=== PATIENT | female | born 1960 | race African-American/Black ===

== ENCOUNTER 2021-03-02 10:14 | Outpatient (REF) | payer MEDICARE, MEDICAID, SELFPAY ==
[2021-03-02 11:03] LABS: MANUAL DIFF FLAG NO
[2021-03-02 11:35] LABS: Alanine Aminotransferase 17 U/L (0-31); Albumin Level 4.2 g/dL (3.5-5.0); Alkaline Phosphatase 69 U/L (39-117); Anion Gap 12 (12-20); Aspartate Amino Transferase 20 U/L (5-31); Bilirubin Total 0.4 mg/dL (0.0-1.0); Blood Urea Nitrogen 8 mg/dL (9-16); Calcium 9.5 mg/dL (8.4-10.2); Carbon Dioxide 28 mmol/L (22-29); Chloride 109 mmol/L (96-108); Cholesterol 194 mg/dL; Estimated Glomerular Filt Rate > 60; Glucose Random 99 mg/dL (60-115); HDL Cholesterol 59 mg/dL; LDL Cholesterol Calculated 120 mg/dl; Potassium 4.6 mmol/L (3.3-5.1); Sodium 144 mmol/L (135-145); Total Protein 6.9 g/dL (6.5-8.0); Triglycerides 76 mg/dL
[2021-03-02 11:40] LABS: Basophils Percent Auto 0.4 % (0-2); Eosinophils Absolute Auto 0.1 X10*3/uL (0.0-0.4); Hematocrit 39.9 % (37-47); Imm Gran Abs Auto 0.03 X10*3/uL (0.00-0.03); Imm Gran Pct Auto 0.4 % (0.0-0.4); Lymphocytes Absolute Auto 1.9 X10*3/uL (1.2-4.9); Lymphocytes Percent Auto 28.1 % (20-40); Mean Corpuscular HGB Conc 32.6 g/dl (31.0-35.0); Mean Corpuscular Hemoglobin 29.1 pg (27.0-33.0); Mean Corpuscular Volume 89.3 fL (80-98); Mean Platelet Volume 11.4 fL (9.4-12.3); Monocytes Absolute Auto 0.5 X10*3/uL (0.1-1.2); Monocytes Percent Auto 7.9 % (2-11); Neutrophils Absolute Auto 4.2 X10*3/uL (2.0-8.3); Neutrophils Percent Auto 61.2 % (45-73); Platelet Count 250 X10*3/uL (160-400); Red Blood Count 4.47 X10*6/uL (4.20-5.50); Red Cell Distribution Width 14.5 % (11.0-16.0); White Blood Count 6.9 X10*3/uL (4.8-10.8)
[2021-03-02 12:01] LABS: Thyroid Stimulating Hormone 2.63 uIU/mL (0.32-4.0); Vitamin D 25-OH Total 86.3 ng/mL (>30)
[2021-03-02 12:09] LABS: Folate > 20.0 ng/mL (> or = 4.0); Vitamin B12 > 2000 pg/mL (200-900)
== END 2021-03-02 10:15 | disposition home or self-care (01) ==
LOC: HO.LAB 10:14
PROVIDERS: PCP Internal Medicine; Visit Provider Internal Medicine
DX: E78.00 Pure hypercholesterolemia, unspecified (principal)
CPT/HCPCS: 36415; 80053; 80061; 82306; 82607; 82746; 84439; 84443; 85025

== ENCOUNTER 2021-03-03 10:53 | Outpatient (REF) | payer MEDICARE, MEDICAID, SELFPAY ==
--- NOTE | ~2021-03-03 | MM_ITS ---
EXAMINATION: MM SCREENING DIGITAL BREAST TOMOSYNTHESIS, BILATERAL CLINICAL INFORMATION: Screening, asymptomatic. Personal history LCIS right breast. Prior history reduction mammoplasty, 2005. The lifetime risk of breast cancer based on the Tyrer-Cuzick Model is 44%. COMPARISON: Mammography: 01/24/2019, 09/08/2017, 06/15/2016, 09/16/2014 TECHNIQUE: Digital breast tomosynthesis is performed in both the craniocaudal and mediolateral oblique views along with computer-aided detection (CAD). Synthesized 2D images are generated from the tomosynthesis. FINDINGS: The breasts are almost entirely fatty (ACR BI-RADS breast composition Category a). Background stromal markings are stable. There is no significant mass or architectural abnormality. No developing density. No abnormal calcifications. The axilla and skin contours are unremarkable. MM/MM tomosynthesis screening BI IMPRESSION: No mammographic evidence of malignancy. ASSESSMENT: BI-RADS 1: Negative RECOMMENDATION: 1. Routine annual mammography screening. 2. The lifetime risk of breast cancer based on the Tyrer-Cuzick Model is 44%. Additional annual adjunct screening with breast MRI may be of benefit in women with a risk score of 20% or greater. This patient's information was entered into a reminder system with a target due date for their next mammogram.
== END 2021-03-03 10:54 | disposition home or self-care (01) ==
LOC: HO.MAMMO 10:53
PROVIDERS: PCP Internal Medicine; Visit Provider Internal Medicine
DX: Z12.31 Encounter for screening mammogram for malignant neoplasm of breast (principal)
CPT/HCPCS: 77063; 77067

== ENCOUNTER 2021-08-03 09:35 | Outpatient (REF) | payer MEDICARE, MEDICAID, SELFPAY ==
[2021-08-03 11:21] LABS: Alanine Aminotransferase 17 U/L (0-31); Albumin Level 4.1 g/dL (3.5-5.0); Alkaline Phosphatase 69 U/L (39-117); Anion Gap 9 (12-20); Aspartate Amino Transferase 17 U/L (5-31); Bilirubin Total 0.2 mg/dL (0.0-1.0); Blood Urea Nitrogen 10 mg/dL (9-16); Calcium 9.3 mg/dL (8.4-10.2); Carbon Dioxide 29 mmol/L (22-29); Chloride 107 mmol/L (96-108); Estimated Glomerular Filt Rate > 60; Glucose Fasting 111 mg/dL (60-99); Potassium 4.2 mmol/L (3.3-5.1); Sodium 141 mmol/L (135-145); Total Protein 7.4 g/dL (6.5-8.0)
== END 2021-08-03 09:36 | disposition home or self-care (01) ==
LOC: HO.LAB 09:35
PROVIDERS: PCP Internal Medicine; Visit Provider Nurse Practitioner Family
DX: Z13.1 Encounter for screening for diabetes mellitus (principal)
CPT/HCPCS: 36415; 80053

== ENCOUNTER 2021-10-14 09:19 | Outpatient (REF) | payer MEDICARE, MEDICAID, SELFPAY ==
--- NOTE | ~2021-10-14 | MM_ITS ---
EXAMINATION: BONE DENSITOMETRY CLINICAL INDICATION: Osteoporosis. COMPARISON: Previous BD dated 02/23/2018 and baseline BD dated 10/23/2014. TECHNIQUE: Using a [employer] DXA System (software version: 13.1) manufactured by [employer], dual-energy x-ray absorptiometry was performed of the lumbar spine and left hip. The images are of good technical quality. Summary results are attached. FINDINGS: AP SPINE L1-L4: Current: BMD 0.982 g/cm2, Z-score -1.9, T-score -1.6, osteopenia, 0.8% increase from previous, 2.6% decrease from baseline (<5% change is not significant). Prior: BMD 0.974 g/cm2. Baseline: BMD 1.008 g/cm2. LEFT FEMUR, NECK: Current: BMD 0.834 g/cm2, Z-score -1.7, T-score -1.5, osteopenia. Prior: BMD 0.842 g/cm2. Baseline: BMD 0.915 g/cm2. LEFT FEMUR, TOTAL: Current: BMD 0.930 g/cm2, Z-score -1.2, T-score -0.6, normal, 3.1% increase from previous, 3.9% decrease from baseline (<5% change is not significant). Prior: BMD 0.902 g/cm2. Baseline: BMD 0.968 g/cm2. IDENTIFIED RISK FACTORS: Early menopause, alcohol (3 or more units per day), osteoporosis, recurrent falls, tobacco use (current smoker), secondary osteoporosis. HISTORY OF FRACTURE: None listed. MEDICATIONS: Vitamin D. MM/XR DEXA axial skeleton IMPRESSION: 1. DIAGNOSIS: Osteopenia based on the lowest T-score value of -1.6 in the lumbar spine applying World Health Organization criteria. 2. 10-YEAR FRACTURE RISK PREDICTION, FRAX: Major osteoporotic fracture (clinical spine, forearm, hip or shoulder) 9.9%. Hip fracture 1.9%. 3. Treatment Recommendations: NOF guidelines recommend consideration for treatment in postmenopausal women and men age 50 and older presenting with the following: -A hip or vertebral (clinical or morphometric) fracture. -T-score less than or equal to -2.5 at the femoral neck or spine after appropriate evaluation to exclude secondary causes. -Low bone mass at the hip or spine and a 10-year fracture probability by FRAX of greater than or equal to 3% for hip fracture or greater than or equal to 20% for major osteoporotic fracture based on the [place] adapted WHO algorithm. 4. Other Recommendations: All treatment decisions require clinical judgment and consideration of individual patient factors, including patient preferences, comorbidities, previous drug use, risk factors not captured in the FRAX model (e.g. frailty, falls, vitamin D deficiency, increased bone turnover, interval significant decline in bone density) and possible under or overestimation of fracture risk by FRAX. Additional medical evaluation for secondary cause of low bone mineral density may be appropriate. FUTURE SCAN RECOMMENDATION: People with diagnosed cases of osteoporosis or at high risk for fracture should have regular bone mineral density tests. For patients eligible for Medicare, routine testing is allowed once every 2 years. The testing frequency can be increased to one year for patients who have rapidly progressing disease, those who are receiving or discontinuing medical therapy to restore bone mass, or have additional risk factors.
== END 2021-10-14 09:20 | disposition home or self-care (01) ==
LOC: HO.MAMMO 09:19
PROVIDERS: PCP Internal Medicine; Visit Provider Internal Medicine
DX: Z13.820 Encounter for screening for osteoporosis (principal); M81.0 Age-related osteoporosis without current pathological fracture; Z78.0 Asymptomatic menopausal state
CPT/HCPCS: 77080

== ENCOUNTER 2022-01-19 13:50 | Outpatient (REF) | payer MEDICARE, MEDICAID, SELFPAY ==
[2022-01-19 14:08] LABS: MANUAL DIFF FLAG NO
[2022-01-19 14:19] LABS: Basophils Percent Auto 0.5 % (0-2); Eosinophils Absolute Auto 0.1 X10*3/uL (0.0-0.4); Eosinophils Percent Auto 1.4 % (0-4); Hematocrit 41.8 % (37.0-47.0); Hemoglobin 13.8 g/dl (12.0-16.0); Imm Gran Abs Auto 0.01 X10*3/uL (0.00-0.03); Imm Gran Pct Auto 0.2 % (0.0-0.4); Lymphocytes Absolute Auto 2.3 X10*3/uL (1.2-4.9); Lymphocytes Percent Auto 39.6 % (20-40); Mean Corpuscular Hemoglobin 29.2 pg (27.0-33.0); Mean Corpuscular Volume 88.4 fL (80.0-98.0); Mean Platelet Volume 10.6 fL (9.4-12.3); Monocytes Absolute Auto 0.4 X10*3/uL (0.1-1.2); Monocytes Percent Auto 6.7 % (2-11); Neutrophils Percent Auto 51.6 % (45-73); Platelet Count 249 X10*3/uL (160-400); Red Blood Count 4.73 X10*6/uL (4.20-5.50); Red Cell Distribution Width 14.3 % (11.0-16.0); White Blood Count 5.8 X10*3/uL (4.8-10.8)
[2022-01-19 15:08] LABS: Alanine Aminotransferase 20 U/L (0-31); Albumin Level 4.3 g/dL (3.5-5.0); Alkaline Phosphatase 62 U/L (39-117); Anion Gap 13 (12-20); Aspartate Amino Transferase 22 U/L (5-31); Bilirubin Total 0.3 mg/dL (0.0-1.0); Blood Urea Nitrogen 9 mg/dL (9-16); Calcium 9.5 mg/dL (8.4-10.2); Carbon Dioxide 26 mmol/L (22-29); Chloride 108 mmol/L (96-108); Estimated Glomerular Filt Rate > 60; Glucose Random 98 mg/dL (60-115); Potassium 4.1 mmol/L (3.3-5.1); Sodium 143 mmol/L (135-145); Total Protein 7.5 g/dL (6.5-8.0)
[2022-01-20 18:17] LABS: Prolactin 13.5 ng/mL
== END 2022-01-19 13:51 | disposition home or self-care (01) ==
LOC: HO.LAB 13:50
PROVIDERS: PCP Internal Medicine; Visit Provider Internal Medicine Medical Oncology
DX: D49.7 Neoplasm of unspecified behavior of endocrine glands and other parts of nervous system (principal)
CPT/HCPCS: 36415; 80053; 84146; 85025

== ENCOUNTER 2022-03-04 11:31 | Outpatient (REF) | payer MEDICARE, MEDICAID, SELFPAY ==
--- NOTE | ~2022-03-04 | MM_ITS ---
EXAMINATION: MM SCREENING DIGITAL BREAST TOMOSYNTHESIS, BILATERAL CLINICAL INFORMATION: Screening. Asymptomatic. Prior history reduction mammoplasty, 2005; LCIS right breast. COMPARISON: Mammography: 03/03/2021, 01/24/2019, 09/08/2017 TECHNIQUE: Digital breast tomosynthesis is performed in both the craniocaudal and mediolateral oblique views along with computer-aided detection (CAD). Synthesized 2D images are generated from the tomosynthesis. FINDINGS: The breasts are almost entirely fatty (ACR BI-RADS breast composition Category a). There are no significant masses, abnormal calcifications, or other abnormalities. Stromal markings are normal and similar to prior studies. No developing density or interval architectural abnormality. The axilla are unremarkable. There are no significant changes from prior studies. MM/MM tomosynthesis screening BI IMPRESSION: No mammographic evidence of malignancy. ASSESSMENT: BI-RADS 1: Negative RECOMMENDATION: Routine annual mammography screening. This patient's information was entered into a reminder system with a target due date for their next mammogram.
== END 2022-03-04 11:32 | disposition home or self-care (01) ==
LOC: HO.MAMMO 11:31
PROVIDERS: PCP Internal Medicine; Visit Provider Internal Medicine
DX: Z12.31 Encounter for screening mammogram for malignant neoplasm of breast (principal)
CPT/HCPCS: 77063; 77067

== ENCOUNTER 2022-08-23 10:04 | Outpatient (REF) | payer MEDICARE, MEDICAID, SELFPAY ==
[2022-08-23 10:20] LABS: MANUAL DIFF FLAG NO
[2022-08-23 10:49] LABS: Basophils Percent Auto 0.7 % (0-2); Eosinophils Absolute Auto 0.1 X10*3/uL (0.0-0.4); Eosinophils Percent Auto 1.5 % (0-4); Hematocrit 46.8 % (37.0-47.0); Hemoglobin 14.9 g/dl (12.0-16.0); Imm Gran Abs Auto 0.01 X10*3/uL (0.00-0.03); Imm Gran Pct Auto 0.2 % (0.0-0.4); Lymphocytes Absolute Auto 2.8 X10*3/uL (1.2-4.9); Lymphocytes Percent Auto 53.1 % (20-40); Mean Corpuscular HGB Conc 31.8 g/dl (31.0-35.0); Mean Corpuscular Hemoglobin 28.8 pg (27.0-33.0); Mean Corpuscular Volume 90.5 fL (80.0-98.0); Mean Platelet Volume 11.1 fL (9.4-12.3); Monocytes Absolute Auto 0.3 X10*3/uL (0.1-1.2); Monocytes Percent Auto 5.8 % (2-11); Neutrophils Absolute Auto 2.1 x10*3/uL (2.0-8.3); Neutrophils Percent Auto 38.7 % (45-73); Platelet Count 271 X10*3/uL (160-400); Red Blood Count 5.17 X10*6/uL (4.20-5.50); Red Cell Distribution Width 14.6 % (11.0-16.0); White Blood Count 5.4 X10*3/uL (4.8-10.8)
[2022-08-23 11:40] LABS: Lactate Dehydrogenase 215 U/L (122-220)
[2022-08-24 21:52] LABS: Prolactin 14.7 ng/mL
== END 2022-08-23 10:05 | disposition home or self-care (01) ==
LOC: HO.LAB 10:04
PROVIDERS: PCP Internal Medicine; Visit Provider Internal Medicine Medical Oncology
DX: D49.7 Neoplasm of unspecified behavior of endocrine glands and other parts of nervous system (principal)
CPT/HCPCS: 36415; 83615; 84146; 85025

== ENCOUNTER 2022-12-28 08:49 | Outpatient (REF) | payer MEDICARE, MEDICAID, SELFPAY ==
[2022-12-28 09:27] LABS: MANUAL DIFF FLAG NO
[2022-12-28 10:42] LABS: Basophils Percent Auto 0.6 % (0-2); Eosinophils Absolute Auto 0.1 X10*3/uL (0.0-0.4); Eosinophils Percent Auto 1.9 % (0-4); Hematocrit 41.2 % (37.0-47.0); Hemoglobin 13.3 g/dl (12.0-16.0); Imm Gran Abs Auto 0.01 X10*3/uL (0.00-0.03); Imm Gran Pct Auto 0.2 % (0.0-0.4); Lymphocytes Absolute Auto 2.9 X10*3/uL (1.2-4.9); Lymphocytes Percent Auto 45.9 % (20-40); Mean Corpuscular HGB Conc 32.3 g/dl (31.0-35.0); Mean Corpuscular Hemoglobin 29.3 pg (27.0-33.0); Mean Corpuscular Volume 90.7 fL (80.0-98.0); Mean Platelet Volume 11.7 fL (9.4-12.3); Monocytes Absolute Auto 0.4 X10*3/uL (0.1-1.2); Monocytes Percent Auto 6.9 % (2-11); Neutrophils Absolute Auto 2.8 x10*3/uL (2.0-8.3); Neutrophils Percent Auto 44.5 % (45-73); Platelet Count 253 X10*3/uL (160-400); Red Blood Count 4.54 X10*6/uL (4.20-5.50); Red Cell Distribution Width 14.5 % (11.0-16.0); White Blood Count 6.3 X10*3/uL (4.8-10.8)
[2022-12-28 10:51] LABS: Estimated Average Glucose 97 mg/dL
[2022-12-28 11:37] LABS: Alanine Aminotransferase 17 U/L (0-31); Albumin Level 4.1 g/dL (3.5-5.0); Alkaline Phosphatase 64 U/L (39-117); Anion Gap 12 (12-20); Aspartate Amino Transferase 16 U/L (5-31); Bilirubin Total 0.2 mg/dL (0.0-1.0); Blood Urea Nitrogen 12 mg/dL (9-16); Calcium 10.3 mg/dL (8.4-10.2); Carbon Dioxide 23 mmol/L (22-29); Chloride 114 mmol/L (96-108); Cholesterol 204 mg/dL; Estimated Glomerular Filt Rate > 60; Glucose Random 96 mg/dL (60-115); HDL Cholesterol 46 mg/dL; LDL Cholesterol Calculated 133 mg/dl; Potassium 4.6 mmol/L (3.3-5.1); Sodium 144 mmol/L (135-145); Total Protein 7.5 g/dL (6.5-8.0); Triglycerides 126 mg/dL
[2022-12-28 11:53] LABS: Thyroid Stimulating Hormone 3.09 uIU/mL (0.32-4.0); Vitamin D 25-OH Total 63.3 ng/mL (>30)
[2022-12-28 14:42] LABS: Folate 8.3 ng/mL (> or = 4.0); Vitamin B12 787 pg/mL (200-900)
== END 2022-12-28 08:50 | disposition home or self-care (01) ==
LOC: HO.LAB 08:49
PROVIDERS: PCP Internal Medicine; Visit Provider Internal Medicine
DX: E78.00 Pure hypercholesterolemia, unspecified (principal); R73.01 Impaired fasting glucose; M85.80 Other specified disorders of bone density and structure, unspecified site; E55.9 Vitamin D deficiency, unspecified
CPT/HCPCS: 36415; 80053; 80061; 82306; 82607; 82746; 83036; 84439; 84443; 85025

== ENCOUNTER 2023-03-02 09:25 | Outpatient (REF) | payer MEDICARE, MEDICAID, SELFPAY ==
[2023-03-02 09:50] LABS: MANUAL DIFF FLAG NO
[2023-03-02 10:38] LABS: Basophils Absolute Auto 0.1 X10*3/uL (0.0-0.2); Basophils Percent Auto 0.8 % (0-2); Eosinophils Absolute Auto 0.1 X10*3/uL (0.0-0.4); Eosinophils Percent Auto 1.8 % (0-4); Hematocrit 44.5 % (37.0-47.0); Hemoglobin 14.4 g/dl (12.0-16.0); Imm Gran Abs Auto 0.01 X10*3/uL (0.00-0.03); Imm Gran Pct Auto 0.2 % (0.0-0.4); Lymphocytes Absolute Auto 3.1 X10*3/uL (1.2-4.9); Lymphocytes Percent Auto 49.9 % (20-40); Mean Corpuscular HGB Conc 32.4 g/dl (31.0-35.0); Mean Corpuscular Hemoglobin 29.1 pg (27.0-33.0); Mean Corpuscular Volume 89.9 fL (80.0-98.0); Monocytes Absolute Auto 0.4 X10*3/uL (0.1-1.2); Monocytes Percent Auto 6.6 % (2-11); Neutrophils Absolute Auto 2.5 x10*3/uL (2.0-8.3); Neutrophils Percent Auto 40.7 % (45-73); Platelet Count 294 X10*3/uL (160-400); Red Blood Count 4.95 X10*6/uL (4.20-5.50); Red Cell Distribution Width 14.3 % (11.0-16.0); White Blood Count 6.2 X10*3/uL (4.8-10.8)
[2023-03-02 11:15] LABS: Alanine Aminotransferase 22 U/L (0-31); Albumin Level 4.5 g/dL (3.5-5.0); Alkaline Phosphatase 64 U/L (39-117); Anion Gap 12 (12-20); Aspartate Amino Transferase 20 U/L (5-31); Bilirubin Total 0.3 mg/dL (0.0-1.0); Blood Urea Nitrogen 9 mg/dL (9-16); Calcium 10.1 mg/dL (8.4-10.2); Carbon Dioxide 25 mmol/L (22-29); Chloride 111 mmol/L (96-108); Estimated Glomerular Filt Rate 58; Glucose Random 101 mg/dL (60-115); Potassium 4.4 mmol/L (3.3-5.1); Sodium 144 mmol/L (135-145); Total Protein 8.2 g/dL (6.5-8.0)
[2023-03-02 11:18] LABS: Erythrocyte Sedimentation Rate 29 MM/HR (0-20)
== END 2023-03-02 09:26 | disposition home or self-care (01) ==
LOC: HO.LAB 09:25
PROVIDERS: PCP Internal Medicine; Visit Provider Internal Medicine Medical Oncology
DX: C83.31 Diffuse large B-cell lymphoma, lymph nodes of head, face, and neck (principal)
CPT/HCPCS: 36415; 80053; 85025; 85652

== ENCOUNTER 2023-03-03 17:31 | Outpatient (REF) | payer MEDICARE, MEDICAID, SELFPAY | END 2023-03-03 17:32 | disposition home or self-care (01) | LOC: HO.LNP 17:31 | PROVIDERS: Visit Provider Internal Medicine Medical Oncology | DX: J02.9 Acute pharyngitis, unspecified (principal) | CPT/HCPCS: 87070 ==

== ENCOUNTER 2023-03-10 11:48 | Outpatient (REF) | payer MEDICARE, MEDICAID, SELFPAY ==
--- NOTE | ~2023-03-10 | MM_ITS ---
EXAMINATION: MM SCREENING DIGITAL BREAST TOMOSYNTHESIS, BILATERAL CLINICAL INFORMATION: Screening. Asymptomatic. The patient has had of bilateral breast reduction. She is also had surgically treated LCIS in the right breast. COMPARISON: Mammography: This study is compared with prior exams dating back to 2018. TECHNIQUE: Digital breast tomosynthesis is performed in both the craniocaudal and mediolateral oblique views along with computer-aided detection (CAD). Synthesized 2D images are generated from the tomosynthesis. FINDINGS: The breasts are almost entirely fatty (ACR BI-RADS breast composition Category a). There are no significant masses, abnormal calcifications, or other abnormalities. There are minor changes of bilateral breast reduction. MM/MM tomosynthesis screening BI IMPRESSION: No mammographic evidence of malignancy. ASSESSMENT: BI-RADS BI-RADS 2 - Benign Findings RECOMMENDATION: Routine annual mammography screening. 1 year F/U This examination should not preclude the clinical evaluation of a suspicious palpable abnormality. This patient's information was entered into a reminder system with a target due date for their next mammogram.
== END 2023-03-10 11:49 | disposition home or self-care (01) ==
LOC: HO.MAMMO 11:48
PROVIDERS: PCP Internal Medicine; Visit Provider Internal Medicine
DX: Z12.31 Encounter for screening mammogram for malignant neoplasm of breast (principal)
CPT/HCPCS: 77063; 77067

== ENCOUNTER → 2023-03-10 12:00 | Outpatient (BNV) | payer MEDICARE, MEDICAID, SELFPAY | PROVIDERS: PCP Internal Medicine; Visit Provider Radiology Diagnostic Radiology | DX: Z12.31 Encounter for screening mammogram for malignant neoplasm of breast (principal) | CPT/HCPCS: 77063; 77067 ==

== ENCOUNTER 2023-03-29 12:55 | Outpatient (AMB) | payer MEDICARE, MEDICAID, SELFPAY ==
--- NOTE | 2023-03-29 13:04 | A.OFFPC_ITS ---
Vital Signs 03/29/23 13:05 Height 5 ft 8 in Weight 186 lb BMI 28.3 BP 122/70 Blood Pressure Location Lt brachial Position Sitting Pulse 78 Pulse Source Pulse Oximeter Pulse Oximetry (%) 98 Oxygen Delivery Method Room Air Intake Visit Reasons: Shoulder pain/swelling Allergies No Known Allergies Allergy (Verified 03/29/23 13:05) Tobacco use date assessed: 12/07/22 Fall risk assessment: No Falls in past year Last assessed Fall Risk: 03/29/23 Dental Screening Dental Screen Date: 03/29/23 Did you have a dental visit in the last 12 months?: Yes Did you have a dental problem in the last 6 months where you did not have access to dental care?: No Was dental information given to patient?: Patient has dentist HPI Shoulder pain/swelling HPI Details 62-year-old overweight female with a his tory of lymphoma breast cancer hypercholesterolemia generalized anxiety disorder coming in for an acute problem. Mammograms up-to-date bone density is up-to-date. Patient follows up with Hematology-Oncology no signs of recurrent breast cancer right-sided neck lymph node reactive 03/03/2023 patient did get the flu shot, COVID-19 shot and RSV. [facility] Medical History (Updated 03/29/23 @ 13:22 by Vito Santiago MD) Overweight (BMI 25.0-29.9) Age-related osteoporosis without current pathological fracture Adult general medical exam Screening for colon cancer Screening for diabetes mellitus Colonoscopy refused History of alcohol abuse Hypercholesterolemia Breast cancer Lymphoma Pituitary lesion Osteoarthritis Insomnia Inflammatory bowel disease Anxiety and depression Postmenopausal Surgical History History of bilateral breast reduction surgery History of surgery History of lumpectomy of right breast History of tonsillectomy Family History (Updated 12/07/22 @ 11:25 by Santa Fang CMA) Father Colon cancer Mother Lymphoma Family/Other Breast cancer Social History Housing: House Alcohol intake: former Patient Tobacco Use Status: Former Tobacco user Tobacco use type: Cigarette e-Cigarette/Vaping Use: Never Used Second Hand Smoke Exposure: No service: No Current occupational status: disabled Cognitive needs: No Hearing needs: No Vision needs: No Questionnaire PHQ-9 Over the last 2 weeks, how often have you been bothered by any of the following problems? 1. Little interest or pleasure in doing things: several days 2. Feeling down, depressed, or hopeless: more than half the days 3. Trouble falling or staying asleep, or sleeping too much: several days 4. Feeling tired or having little energy: nearly every day 5. Poor appetite or overeating: more than half the days 6. Feeling bad about yourself - or that you are a failure or have let yourself or your family down: more than half the days 7. Trouble concentrating on things, such as reading the newspaper or watching television: several days 8. Moving or speaking so slowly that other people could have noticed. Or the opposite - being so fidgety or restless that you have been moving around a lot more than usual: several days 9. Thoughts that you would be better off or of hurting yourself in some way: several days Total score: 14 Depression Screening Interpretation: Positive Depression Screening Follow-up: In treatment Depression Screening Done: Yes 10731 - PHQ-9 Billing: Yes Source: Developed by Drs. Jay Aguilera, Roxana Addison, Mikal Clarke and colleagues, with an educational shu from [facility]. Thrive Questionnaire Date Thrive assessed: 08/04/22 AUDIT C Alcohol Use Questionnaire (AUDIT-C) 1. How often do you have a drink containing alcohol?: Never 2. How many drinks containing alcohol do you have on a typical day when you are drinking?: 1 or 2 3. How often do you have six or more drinks on one occasion?: Never Total Score: 0 Score Reviewed/Action Taken: No ROSY-7 AMB Questionnaire ROSY-7 Date ROSY - 7 assessed: 08/04/22 Source: Developed by Drs. Jay Aguilera, Roxana Addison, Mikal Clarke and colleagues, with an educational shu from [facility]. Physical exam (Primary Care) Vital Signs: Last Vital Signs Pulse 78 03/29/23 13:05 BP 122/70 03/29/23 13:05 Pulse Ox 98 03/29/23 13:05 Oxygen Delivery Method Room Air 03/29/23 13:05 BMI result Body Mass Index 28.3 Tobacco/Smoking Status: Tobacco use Status Tobacco use date assessed 12/07/22 03/29/23 13:07 Patient Tobacco Use Status Former Tobacco user 03/29/23 13:07 Tobacco use type Cigarette 03/29/23 13:07 e-Cigarette/Vaping Use Never Used 03/29/23 13:07 PHQ-9: PHQ-9 Score PHQ-9: Total score 14 03/29/23 13:07 Depression Screening Interpretation: Positive Depression Screening Follow-up: In treatment Thrive Assessment: Date of Thrive Assessment Date Thrive assessed 08/04/22 03/29/23 13:07 Const General: alert; No acute distress Eyes Conjunctivae: conjunctivae normal Resp Auscultation: clear to auscultation bilaterally Cardio Rate: regular rate Rhythm: regular rhythm GI Inspection: Yes normal to inspection Extrem General: Yes normal to inspection and No edema Assessment and Plan Assessment & Plan (1) Lymphoma: Comment: 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 Lorenz November 2012 Code(s): C85.90 - Non-Hodgkin lymphoma, unspecified, unspecified site Qualifiers: Lymphoma type: non-Hodgkin Non-Hodgkin lymphoma type: B-cell B-cell lymphoma type: diffuse large B-cell Lymphoma site: head Qualified Code(s): C83.31 - Diffuse large B-cell lymphoma, lymph nodes of head, face, and neck Plan: Patient follows up with hematology oncology (2) Breast cancer: Comment: Right breast cancer tamoxifen LCIS 2010 Code(s): C50.919 - Malignant neoplasm of unspecified site of unspecified female breast Qualifiers: Breast location: unspecified site of breast Estrogen receptor status: unspecified Patient sex: female Laterality: right Qualified Code(s): C50.911 - Malignant neoplasm of unspecified site of right female breast Plan: Patient follows up with hematology oncology. Up-to-date with mammogram (3) Hypercholesterolemia: Code(s): E78.00 - Pure hypercholesterolemia, unspecified Plan: Avoid fried foods, chicken skin, eggs, butter margarine, pastries and meat. Be it pork or beef they have a lot of cholesterol LDL goal of less than 130 and triglyceride of less than 150 (4) Generalized anxiety disorder: Comment: melissa [facility] therapist Q week 07/2020 Code(s): F41.1 - Generalized anxiety disorder Plan: Continue with counseling and therapy (5) Overweight (BMI 25.0-29.9): Code(s): E66.3 - Overweight Plan: Diet and exercise (6) Osteopenia: Comment: February 2018, September 2021 Code(s): M85.80 - Other specified disorders of bone density and structure, unspecified site Plan: Patient on alendronate (7) Bilateral shoulder pain: Code(s): M25.511 - Pain in right shoulder; M25.512 - Pain in left shoulder Orders: Orders PT Evaluation and Treatment Today M25.511 - Pain in right shoulder, M25.512 - Pain in left shoulder Referrals Orthopedics Referral M25.511 - Pain in right shoulder, M25.512 - Pain in left shoulder Medications: New meloxicam 15 mg PO DAILY 30 tabs 0RF M25.511 - Pain in right shoulder, M25.512 - Pain in left shoulder Coding Level of Care Code Est Pt Level 4 (10708) Diagnoses 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 Lymphoma type: non-Hodgkin Non-Hodgkin lymphoma type: B-cell B-cell lymphoma type: diffuse large B-cell Lymphoma site: head Malignant neoplasm of right female breast, unspecified estrogen receptor status, unspecified site of breast C50.911 Breast location: unspecified site of breast Estrogen receptor status: unspecified Patient sex: female Laterality: right Hypercholesterolemia E78.00 Generalized anxiety disorder F41.1 Overweight (BMI 25.0-29.9) E66.3 Osteopenia M85.80 Bilateral shoulder pain M25.511; M25.512
[2023-03-29 13:05] VITALS: BP 122/70; PULSE 78; O2SAT 98; BMI 28.3
== END 2023-03-29 13:29 | disposition home or self-care (01) ==
PROVIDERS: PCP Internal Medicine; Visit Provider Internal Medicine
DX: C83.31 Diffuse large B-cell lymphoma, lymph nodes of head, face, and neck (principal); C50.911 Malignant neoplasm of unspecified site of right female breast; E78.00 Pure hypercholesterolemia, unspecified; F41.1 Generalized anxiety disorder; E66.3 Overweight; M85.80 Other specified disorders of bone density and structure, unspecified site; M25.511 Pain in right shoulder; M25.512 Pain in left shoulder
CPT/HCPCS: 99214

== ENCOUNTER 2023-04-19 10:03 | Outpatient (AMB) | payer MEDICARE, MEDICAID, SELFPAY ==
--- NOTE | 2023-04-19 10:18 | MHC.OFFVIS ---
Intake Intake Visit Reasons: [employer]ER-B/L should pain Intake Note: This is a 62 year old female who presents for bilateral shoulder pain. X rays updated in the office today. Patient describes her pains as sharp in nature. She did injure her right shoulder several years ago while lifting a heavy object. Since that time her symptoms have gotten worse. She has done physical therapy which aggravated her symptoms. Patient reports difficulty lifting her right hand above shoulder height. She has had injections in the past which gave her only temporary relief. She has also tried Tylenol and anti-inflammatory medicines which gave her minimal relief. Allergies No Known Allergies Allergy (Verified 04/19/23 10:19) Medication List - Last Reconciled 04/19/23 by Zeny Troncoso RN alendronate 70 mg PO QWEEK alprazolam 0.25 mg (1/2 x 0.5 mg) PO BID-TID PRN 30 days amoxicillin 500 mg PO Q8H 7 days lidocaine 5% (Lidoderm) 2 patches topical DAILY meloxicam 15 mg PO DAILY oxycodone-acetaminophen 5-325 mg (Percocet) 1 tab PO .QD PRN 30 days sertraline 150 mg (1.5 x 100 mg) PO DAILY 90 days zolpidem 10 mg PO BEDTIME PFSH Medical History (Updated 04/17/23 @ 11:08 by Brody Ly MD) Overweight (BMI 25.0-29.9) Age-related osteoporosis without current pathological fracture Adult general medical exam Screening for colon cancer Screening for diabetes mellitus Colonoscopy refused History of alcohol abuse Hypercholesterolemia Breast cancer Lymphoma Pituitary lesion Osteoarthritis Insomnia Inflammatory bowel disease Anxiety and depression Postmenopausal Surgical History History of bilateral breast reduction surgery History of surgery History of lumpectomy of right breast History of tonsillectomy Family History (Updated 12/07/22 @ 11:25 by Santa Fang CMA) Father Colon cancer Mother Lymphoma Family/Other Breast cancer Social History Housing: House Alcohol intake: former Patient Tobacco Use Status: Former Tobacco user Tobacco use type: Cigarette e-Cigarette/Vaping Use: Never Used Second Hand Smoke Exposure: No service: No Current occupational status: disabled Cognitive needs: No Hearing needs: No Vision needs: No Physical Exam Const Other: Well-nourished well-developed very friendly female awake alert and oriented x3 in no acute distress Extrem Other: Bilateral upper extremity examination shows good capillary refill, no skin lesions noted, normal sensation light touch Right shoulder examination shows decreased range of motion when compared to her left shoulder, 4+ out of 5 strength with supraspinatus testing, positive impingement signs, tenderness over her acromioclavicular joint, no instability Left shoulder examination shows 5/5 strength with supraspinatus testing, positive impingement signs, no instability Office Procedures Joint Injection/Drain Joint Injection/Drain Primary Site: right shoulder Injected: 40 mg of, Kenalog and 1% plain lidocaine Procedure: The patient tolerated the procedure well Coding 68435 - Large joint Procedure code (CPT) selection complete Results Reviewed Results Reviewed: 04/19/23 10:32 Lidocaine HCl 1 % [Xylocaine 1 %] 2 ml .ROUTE .STK-MED ONE Triamcinolone Acetonide [Kenalog-40] 40 mg .ROUTE .STK-MED ONE X-rays of the patient's bilateral shoulders taken today show severe acromioclavicular joint narrowing, type 2 acromion, no acute bony abnormalities Assessment & Plan Assessment & Plan (1) Right shoulder pain: Code(s): M25.511 - Pain in right shoulder Plan: Ms. Matthew presents with bilateral shoulder pains, right greater than left, due to impingement syndrome, acromioclavicular joint arthritis and possible rotator cuff tearing. I had a lengthy discussion with the patient regarding the treatment options. The risks and benefits of a right shoulder cortisone injection were discussed at length with the patient. The patient wished to proceed. She tolerated the injection well. I will also send the patient for an MRI of her right shoulder to further evaluate the status of her rotator cuff tendons. I will see her back once the MRI results are available. She will continue with her range of motion exercises in the meantime to prevent stiffness. Feel free to call me at any time should questions regarding her orthopedic management arise. Thank you very much for asking me to see this very friendly patient. I spent 22 minutes in reviewing the patient's records and imaging studies, seeing the patient and documenting in the medical record. (2) Left shoulder pain: Code(s): M25.512 - Pain in left shoulder Orders: Orders XR shoulder LT min 2V Today M25.512 - Pain in left shoulder MR shoulder RT wo con Today M67.919 - Unspecified disorder of synovium and tendon, unspecified shoulder XR shoulder RT min 2V Today M25.511 - Pain in right shoulder AMB Joint Injection/Aspiration Today M25.511 - Pain in right shoulder Coding Level of Care Code New Pt Level 2 (95180) Diagnoses Right shoulder pain M25.511 Left shoulder pain M25.512 CPT Codes Coding - 77650 Large joint: 76652 - Large joint ([id number])
== END 2023-04-19 10:51 | disposition home or self-care (01) ==
PROVIDERS: PCP Internal Medicine; Visit Provider Orthopaedic Surgery
DX: M25.511 Pain in right shoulder (principal); M25.512 Pain in left shoulder
CPT/HCPCS: 20610; 99204

== ENCOUNTER 2023-04-19 10:17 | Outpatient (REF) | payer MEDICARE, MEDICAID, SELFPAY ==
--- NOTE | ~2023-04-19 | XR_ITS ---
EXAMINATION: XR SHOULDERS, BILATERAL CLINICAL INFORMATION: Pain COMPARISON: Right shoulder radiograph from 12/26/2016 TECHNIQUE: 2 views of each shoulder FINDINGS: RIGHT: No acute visible fracture or dislocation. Moderate degenerative arthropathy of the glenohumeral and acromioclavicular joints. Slight decreased acromiohumeral interval suggesting rotator cuff pathology. Joint spaces and alignment are otherwise maintained. Soft tissues are unremarkable. Visualized portions of the chest are unremarkable. LEFT: No acute visible fracture or dislocation. Moderate degenerative arthropathy of the glenohumeral and acromioclavicular joints. Slight decreased acromiohumeral interval suggesting rotator cuff pathology. Joint spaces and alignment are otherwise maintained. Soft tissues are unremarkable. Visualized portions of the chest are unremarkable. XR/XR shoulder LT min 2V IMPRESSION: 1. No acute visible fracture or dislocation. 2. Bilateral moderate degenerative arthropathy of the glenohumeral and acromioclavicular joints. 3. Slight decreased bilateral acromiohumeral interval suggesting rotator cuff pathology.
--- NOTE | ~2023-04-19 | XR_ITS ---
EXAMINATION: XR SHOULDERS, BILATERAL CLINICAL INFORMATION: Pain COMPARISON: Right shoulder radiograph from 12/26/2016 TECHNIQUE: 2 views of each shoulder FINDINGS: RIGHT: No acute visible fracture or dislocation. Moderate degenerative arthropathy of the glenohumeral and acromioclavicular joints. Slight decreased acromiohumeral interval suggesting rotator cuff pathology. Joint spaces and alignment are otherwise maintained. Soft tissues are unremarkable. Visualized portions of the chest are unremarkable. LEFT: No acute visible fracture or dislocation. Moderate degenerative arthropathy of the glenohumeral and acromioclavicular joints. Slight decreased acromiohumeral interval suggesting rotator cuff pathology. Joint spaces and alignment are otherwise maintained. Soft tissues are unremarkable. Visualized portions of the chest are unremarkable. XR/XR shoulder RT min 2V IMPRESSION: 1. No acute visible fracture or dislocation. 2. Bilateral moderate degenerative arthropathy of the glenohumeral and acromioclavicular joints. 3. Slight decreased bilateral acromiohumeral interval suggesting rotator cuff pathology.
== END 2023-04-19 10:18 | disposition home or self-care (01) ==
LOC: HO.HOSX 10:17
PROVIDERS: Visit Provider Orthopaedic Surgery
DX: M25.511 Pain in right shoulder (principal); M25.512 Pain in left shoulder
CPT/HCPCS: 20610; 73030; 99202; J3301

== ENCOUNTER 2023-06-30 09:32 | Outpatient (REF) | payer MEDICARE, MEDICAID, SELFPAY ==
--- NOTE | ~2023-06-30 | MR_ITS ---
EXAMINATION: MR SHOULDER WITHOUT CONTRAST, RIGHT CLINICAL INFORMATION: Unspecified disorder of synovium and tendon, unspecified shoulder. M67.919. Patient reports arthritis in constant pain. COMPARISON: X-ray the right shoulder 04/19/2023, MRI of the right shoulder November 2015. TECHNIQUE: MRI of the shoulder without contrast was performed on a high-field scanner. FINDINGS: ROTATOR CUFF: Supraspinatus: There is an intrasubstance longitudinal focus of fluid-like signal involving the distal 16 mm of the tendon. This is increased in conspicuity and size compared to prior. This measures up to 7 mm AP. This has the appearance of a longitudinal intrasubstance partial tear increased in size compared to prior. No transverse defect or tendon retraction. There is no atrophy or fatty infiltration of muscle. Subscapularis: Minimal heterogeneity compatible with tendinosis and perhaps small areas of partial tearing but no measurable defect or tendon retraction. This is new compared to prior. Muscle normal. Infraspinatus and teres minor normal BICEPS: Normal. CORACOACROMIAL ARCH: The undersurface of the acromion is curved with no subacromial spur. The acromioclavicular joint is normal. LABRUM/CAPSULE: Normal. GLENOHUMERAL JOINT/MARROW: Enthesopathic cystic change in the greater tuberosity and lesser tuberosity. Small marginal osteophyte along the inferior aspect of the humeral head. Minimal cartilage heterogeneity. Glenoid cartilage normal. Overall minimal glenohumeral arthrosis. Mild joint effusion. MR/MR shoulder RT wo con IMPRESSION: 1. Small longitudinal intrasubstance partial tear of the distal supraspinatus tendon increased in size compared to prior. No full-thickness defect or tendon retraction. 2. Minimal abnormality of the subscapularis compatible with tendinosis and perhaps small areas of partial tearing but no measurable defect or tendon retraction. 3. Minimal glenohumeral arthrosis. Mild joint effusion.
== END 2023-06-30 09:33 | disposition home or self-care (01) ==
LOC: HO.MRI 09:32
PROVIDERS: PCP Internal Medicine; Visit Provider Orthopaedic Surgery
DX: M67.911 Unspecified disorder of synovium and tendon, right shoulder (principal)
CPT/HCPCS: 73221

== ENCOUNTER 2023-07-19 08:59 | Outpatient (AMB) | payer MEDICARE, MEDICAID, SELFPAY ==
--- NOTE | 2023-07-19 09:11 | A.OFFVIS_ITS ---
Intake Vital Signs 07/19/23 09:13 Height 5 ft 8 in Weight 186 lb BMI 28.3 Handedness Right Intake Visit Reasons: OV-Right shoulder MRI review Intake Note: Jackeline is a 62 year old right hand dominant female who presents for a MRI review of her Right shoulder. The patient describes her right shoulder pain as sharp in nature. She did injure her right shoulder several years ago while lifting a heavy object. Since that time her pain and weakness have gotten worse. The patient reports difficulty lifting her right hand above shoulder height. She has had injections in the past which gave her minimal relief. She has also done physical therapy which aggravated her pain. The patient also reports intermittent left shoulder pain and weakness. At this point her left shoulder symptoms are tolerable to her. Allergies No Known Allergies Allergy (Verified 07/19/23 09:13) Medication List - Last Reconciled 07/19/23 by Brody Ly MD alendronate 70 mg PO QWEEK alprazolam 0.25 mg (1/2 x 0.5 mg) PO BID-TID PRN 30 days amoxicillin 500 mg PO Q8H 7 days lidocaine 5% (Lidoderm) 2 patches topical DAILY meloxicam 15 mg PO DAILY oxycodone-acetaminophen 5-325 mg (Percocet) 1 tab PO .QD PRN 30 days sertraline 150 mg (1.5 x 100 mg) PO DAILY 90 days zolpidem 10 mg PO BEDTIME PFSH Medical History (Updated 04/17/23 @ 11:08 by Brody Ly MD) Overweight (BMI 25.0-29.9) Age-related osteoporosis without current pathological fracture Adult general medical exam Screening for colon cancer Screening for diabetes mellitus Colonoscopy refused History of alcohol abuse Hypercholesterolemia Breast cancer Lymphoma Pituitary lesion Osteoarthritis Insomnia Inflammatory bowel disease Anxiety and depression Postmenopausal Surgical History History of bilateral breast reduction surgery History of surgery History of lumpectomy of right breast History of tonsillectomy Family History (Updated 12/07/22 @ 11:25 by Santa Fang CMA) Father Colon cancer Mother Lymphoma Family/Other Breast cancer Social History Housing: House Alcohol intake: former Patient Tobacco Use Status: Former Tobacco user Tobacco use type: Cigarette e-Cigarette/Vaping Use: Never Used Second Hand Smoke Exposure: No service: No Current occupational status: disabled Cognitive needs: No Hearing needs: No Vision needs: No Physical Exam Vital Signs: BMI result Body Mass Index 28.3 Const Other: Well-nourished well-developed very friendly female awake alert and oriented x3 in no acute distress Extrem Other: Bilateral upper extremity examination shows good capillary refill, no skin lesions noted, normal sensation light touch Right shoulder examination shows decreased range of motion when compared to her left shoulder, positive impingement signs, 4/5 strength with supraspinatus testing, tenderness over her acromioclavicular joint, no instability Results Reviewed Results Reviewed: MRI of the patient's right shoulder show severe acromioclavicular joint narrowing, a type 2 acromion, a full-thickness supraspinatus tendon tear Assessment & Plan Assessment & Plan (1) Right shoulder pain: Code(s): M25.511 - Pain in right shoulder Plan Ms. Matthew presents with right shoulder pain and weakness due to impingement syndrome, acromioclavicular joint arthritis and a full-thickness rotator cuff te ar. I had a lengthy discussion with the patient regarding the treatment options. At this point she has failed continued non operative treatments. The risks and benefits of right shoulder surgery were discussed at length with the patient. The patient wishes to proceed with surgery. Surgery will most likely involve right shoulder diagnostic arthroscopy with distal clavicle excision, acromioplasty and rotator cuff repair. The patient will be scheduled for her next available date. She will follow-up as instructed. Feel free to call me at any time should questions regarding her orthopedic management arise. I spent 22 minutes in reviewing the patient's records and imaging studies, seeing the patient and documenting in the medical record. Coding Level of Care Code Est Pt Level 2 (05556) Diagnoses Right shoulder pain M25.511
[2023-07-19 09:13] VITALS: BMI 28.3
== END 2023-07-19 09:46 | disposition home or self-care (01) ==
PROVIDERS: PCP Internal Medicine; Visit Provider Orthopaedic Surgery
DX: M75.41 Impingement syndrome of right shoulder (principal); M19.011 Primary osteoarthritis, right shoulder
CPT/HCPCS: 99213

== ENCOUNTER → 2023-07-19 08:59 | Outpatient (BNVA) | payer MEDICARE, MEDICAID, SELFPAY | PROVIDERS: PCP Internal Medicine; Visit Provider Orthopaedic Surgery | DX: M75.41 Impingement syndrome of right shoulder (principal); M19.011 Primary osteoarthritis, right shoulder; M75.101 Unspecified rotator cuff tear or rupture of right shoulder, not specified as traumatic | CPT/HCPCS: 99212 ==

== ENCOUNTER 2023-08-08 12:43 | Outpatient (REF) | payer MEDICARE, MEDICAID, SELFPAY ==
[2023-08-08 12:59] LABS: MANUAL DIFF FLAG NO
[2023-08-08 14:03] LABS: Basophils Percent Auto 0.7 % (0-2); Eosinophils Absolute Auto 0.1 X10*3/uL (0.0-0.4); Eosinophils Percent Auto 1.8 % (0-4); Hemoglobin 13.6 g/dl (12.0-16.0); Imm Gran Abs Auto 0.01 X10*3/uL (0.00-0.03); Imm Gran Pct Auto 0.2 % (0.0-0.4); Lymphocytes Absolute Auto 2.3 X10*3/uL (1.2-4.9); Lymphocytes Percent Auto 37.8 % (20-40); Mean Corpuscular HGB Conc 32.4 g/dl (31.0-35.0); Mean Corpuscular Hemoglobin 29.1 pg (27.0-33.0); Mean Corpuscular Volume 89.7 fL (80.0-98.0); Mean Platelet Volume 11.1 fL (9.4-12.3); Monocytes Absolute Auto 0.4 X10*3/uL (0.1-1.2); Monocytes Percent Auto 6.2 % (2-11); Neutrophils Absolute Auto 3.2 x10*3/uL (2.0-8.3); Neutrophils Percent Auto 53.3 % (45-73); Platelet Count 265 X10*3/uL (160-400); Red Blood Count 4.68 X10*6/uL (4.20-5.50); Red Cell Distribution Width 13.9 % (11.0-16.0)
[2023-08-08 14:10] LABS: Estimated Average Glucose 100 mg/dL; Hemoglobin A1c % 5.1 % (<6.0)
[2023-08-08 14:41] LABS: Alanine Aminotransferase 20 U/L (0-31); Albumin Level 4.2 g/dL (3.5-5.0); Alkaline Phosphatase 58 U/L (39-117); Anion Gap 11 (12-20); Aspartate Amino Transferase 14 U/L (5-31); Bilirubin Total 0.3 mg/dL (0.0-1.0); Blood Urea Nitrogen 10 mg/dL (9-16); Calcium 9.6 mg/dL (8.4-10.2); Carbon Dioxide 29 mmol/L (22-29); Chloride 108 mmol/L (96-108); Cholesterol 298 mg/dL (<200); Estimated Glomerular Filt Rate > 60; Glucose Fasting 87 mg/dL (60-99); HDL Cholesterol 76 mg/dL (>40); LDL Cholesterol Calculated 199 mg/dL (<100); Lactate Dehydrogenase 191 U/L (122-220); Potassium 4.3 mmol/L (3.3-5.1); Sodium 144 mmol/L (135-145); Total Protein 7.6 g/dL (6.5-8.0); Triglycerides 117 mg/dL (<150)
[2023-08-08 14:46] LABS: Erythrocyte Sedimentation Rate 23 MM/HR (0-20)
[2023-08-08 14:56] LABS: Creatinine Urine 188.15 mg/dL; Microalbum/Creatinine Ratio Ur 6.9 ug/mg cr (<30)
== END 2023-08-08 12:44 | disposition home or self-care (01) ==
LOC: HO.LAB 12:43
PROVIDERS: Visit Provider Internal Medicine Medical Oncology
DX: E66.3 Overweight (principal); C83.31 Diffuse large B-cell lymphoma, lymph nodes of head, face, and neck
CPT/HCPCS: 36415; 80053; 80061; 82043; 82570; 83036; 83615; 85025; 85652

== ENCOUNTER 2023-08-23 14:09 | Outpatient (AMB) | payer MEDICARE, MEDICAID, SELFPAY ==
--- NOTE | 2023-08-23 14:40 | A.OFFPC_ITS ---
Vital Signs 08/23/23 14:42 Height 5 ft 8 in Weight 189 lb BMI 28.7 BP 118/68 Blood Pressure Location Lt brachial Position Sitting Pulse 72 Pulse Source Pulse Oximeter Pulse Oximetry (%) 98 Oxygen Delivery Method Room Air Intake Visit Reasons: Rotator Cuff Surgery Intake Note: Requesting Chol med. Allergies No Known Allergies Allergy (Verified 08/23/23 14:42) Medication List - Last Reconciled 08/23/23 by Vito Santiago MD alendronate 70 mg PO QWEEK alprazolam 0.25 mg (1/2 x 0.5 mg) PO BID-TID PRN 30 days buspirone 15 mg PO BEDTIME cholecalciferol (vitamin D3) (Vitamin D3) 25 mcg PO DAILY lactobacillus comb no.10 (Probiotic) 20,000 mmu cells PO DAILY lidocaine 5% (Lidoderm) 2 patches topical DAILY meloxicam 15 mg PO DAILY multivitamin 1 tab PO DAILY oxycodone-acetaminophen 5-325 mg (Percocet) 1 tab PO .QD PRN 30 days sertraline 150 mg (1.5 x 100 mg) PO DAILY 90 days zolpidem 10 mg PO BEDTIME Tobacco use date assessed: 08/23/23 Fall risk assessment: No Falls in past year Last assessed Fall Risk: 08/23/23 Dental Screening Dental Screen Date: 08/23/23 Did you have a dental visit in the last 12 months?: Yes Did you have a dental problem in the last 6 months where you did not have access to dental care?: No Was dental information given to patient?: Patient has dentist HPI Rotator Cuff Surgery HPI Details 62-year-old overweight female with a his tory of breast cancer lymphoma hypercholesterolemia generalized anxiety disorder osteopenia coming in for follow-up. Last seen through Telehealth in March 2023. Patient has Cologuard negative in 2021 in August bone density September 2021 mammogram February 2023. Patient has been complaining of right shoulder pain and was sent to orthopedics diagnosis of impingement syndrome acromioclavicular joint arthritis and full- thickness rotator cuff tear surgery advised September 01, 2023 [facility] Medical History (Updated 08/23/23 @ 15:02 by Vito Santiago MD) Obesity (BMI 30.0-34.9) Osteopenia Age-related osteoporosis without current pathological fracture Colonoscopy refused History of alcohol abuse Hypercholesterolemia Breast cancer Lymphoma Pituitary lesion Osteoarthritis Insomnia Inflammatory bowel disease Overweight (BMI 25.0-29.9) Anxiety and depression Surgical History (Updated 08/14/23 @ 10:16 by Giulia Nance RN) History of hysteroscopy Hx of cystoscopy H/O colonoscopy History of bilateral breast reduction surgery History of surgery History of lumpectomy of right breast History of tonsillectomy Family History (Updated 12/07/22 @ 11:25 by Santa Fang CMA) Father Colon cancer Mother Lymphoma Family/Other Breast cancer Social History (Updated 08/23/23 @ 15:06 by Vito Santiago MD) Household Members Other:: son Housing: House Are you a primary healthcare administrator to a significant other at home: No Do you presently have visiting nurse or other home services: Yes (son is [employer]) Alcohol intake: former Patient Tobacco Use Status: Former Tobacco user Quit Date: age 42 Tobacco use type: Cigarette Years Smoked: quit 1999 e-Cigarette/Vaping Use: Never Used Second Hand Smoke Exposure: No service: No Current occupational status: disabled Cognitive needs: No Hearing needs: No Vision needs: No Questionnaire PHQ-9 Over the last 2 weeks, how often have you been bothered by any of the following problems? 1. Little interest or pleasure in doing things: several days 2. Feeling down, depressed, or hopeless: more than half the days 3. Trouble falling or staying asleep, or sleeping too much: several days 4. Feeling tired or having little energy: nearly every day 5. Poor appetite or overeating: more than half the days 6. Feeling bad about yourself - or that you are a failure or have let yourself or your family down: more than half the days 7. Trouble concentrating on things, such as reading the newspaper or watching television: several days 8. Moving or speaking so slowly that other people could have noticed. Or the opposite - being so fidgety or restless that you have been moving around a lot more than usual: several days 9. Thoughts that you would be better off or of hurting yourself in some way: several days Total score: 14 Depression Screening Interpretation: Positive Depression Screening Follow-up: In treatment Depression Screening Done: Yes 14478 - PHQ-9 Billing: Yes Source: Developed by Drs. Jay Aguilera, Roxana Addison, Mikal Clarke and colleagues, with an educational shu from [employer]. Thrive Questionnaire Date Thrive assessed: 08/23/23 I am a: Patient What is your living situation today?: I have a steady place to live Within the past 12 months, did the food you bought not last and you didn't have the money to get more?: Never true Within the past 12 months, did you worry whether your food would run out before you got money to buy more?: Never true Do you have trouble paying for medicines?: No Do you have trouble getting transportation to medical appointments?: No Do you have trouble paying your heating and electricity bill?: No Do you have trouble taking care of your child, family member or friend?: No Do you have trouble with day-to-day activities such as bathing, preparing meals, shopping, managing finances, etc.?: No Are you currently unemployed and looking for a job?: No Are you interested in more education?: No Currently or been in a relationship where the following occur: no concerns reported THRIVE Score: 0 AUDIT C Alcohol Use Questionnaire (AUDIT-C) 1. How often do you have a drink containing alcohol?: Never 2. How many drinks containing alcohol do you have on a typical day when you are drinking?: 1 or 2 3. How often do you have six or more drinks on one occasion?: Never Total Score: 0 Score Reviewed/Action Taken: No ROSY-7 AMB Questionnaire ROSY-7 Date ROSY - 7 assessed: 08/23/23 Feeling nervous, anxious, or on edge: 0 = Not at all Not being able to stop or control worryin = Not at all Worrying too much about different things: 0 = Not at all Trouble relaxin = Not at all Being so restless that it is hard to sit still: 0 = Not at all Becoming easily annoyed or irritable: 0 = Not at all Feeling afraid as if something awful might happen: 0 = Not at all Total ROSY-7 score (0-4 normal; 5-9 mild; 10-14 moderate; 15-21 severe): 0 Source: Developed by Roxana Ash Kurt Kroenke and colleagues, with an educational shu from [employer]. Physical exam (Primary Care) Vital Signs: Last Vital Signs Pulse 72 08/23/23 14:42 BP 118/68 08/23/23 14:42 Pulse Ox 98 08/23/23 14:42 Oxygen Delivery Method Room Air 08/23/23 14:42 BMI result Body Mass Index 28.7 Tobacco/Smoking Status: Tobacco use Status Tobacco use date assessed 08/23/23 08/23/23 14:46 Patient Tobacco Use Status Former Tobacco user 08/23/23 14:46 Tobacco use type Cigarette 08/23/23 14:46 e-Cigarette/Vaping Use Never Used 08/23/23 14:46 PHQ-9: PHQ-9 Score PHQ-9: Total score 14 08/23/23 14:46 Depression Screening Interpretation: Positive Depression Screening Follow-up: In treatment Thrive Assessment: Date of Thrive Assessment Date Thrive assessed 08/23/23 08/23/23 14:46 Currently or been in a relationship where the following occur: no concerns reported Const General: alert; No acute distress Eyes Conjunctivae: conjunctivae normal Resp Auscultation: clear to auscultation bilaterally Cardio Rate: regular rate Rhythm: regular rhythm GI Inspection: Yes normal to inspection Extrem General: Yes normal to inspection and No edema Assessment and Plan Assessment & Plan (1) Hypercholesterolemia: Code(s): E78.00 - Pure hypercholesterolemia, unspecified Plan: Avoid fried foods, chicken skin, eggs, butter margarine, pastries and meat. Be it pork or beef they have a lot of cholesterol LDL goal of less than 130 and triglyceride of less than 150. Patient was in a hurry to get a cholesterol medication but advised that because surgery is pending would like to hold off any new medication until after the surgery. 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 Lorenz November 2012 Code(s): C85.90 - Non-Hodgkin lymphoma, unspecified, unspecified site Qualifiers: Lymphoma type: non-Hodgkin Non-Hodgkin lymphoma type: B-cell B-cell lymphoma type: diffuse large B-cell Lymphoma site: head Qualified Code(s): C83.31 - Diffuse large B-cell lymphoma, lymph nodes of head, face, and neck Plan: Continue to follow-up with Hematology-Oncology (4) Overweight (BMI 25.0-29.9): Code(s): E66.3 - Overweight Plan: Diet and exercise (5) Osteopenia: Comment: February 2018, September 2021 Code(s): M85.80 - Other specified disorders of bone density and structure, unspecified site Plan: Bone density to be requested for September 2023 (6) Generalized anxiety disorder: Comment: [facility] therapist Q week 07/2020 Code(s): F41.1 - Generalized anxiety disorder Plan: Counseling and therapy (7) Right shoulder pain: Code(s): M25.511 - Pain in right shoulder Plan: Planned surgery under Orthopedics. 09/01/2023 (8) Preop exam for internal medicine: Code(s): Z01.818 - Encounter for other preprocedural examination Plan: Blood work evaluated. EKG ordered and pending results. Discussed with the patient to hold any anti-inflammatory like meloxicam or aspirin/ibuprofen/naproxen/Aleve 1 week before the procedure as this will thin the blood. Orders: Orders ECG 12 lead EKG Today Z01.818 - Encounter for other preprocedural examination Lipid Panel 3 Months E78.00 - Pure hypercholesterolemia, unspecified Comprehensive Met. Panel 3 Months E78.00 - Pure hypercholesterolemia, unspecified XR DEXA axial skeleton 2 Months M81.0 - Age-related osteoporosis without current pathological fracture, M85.80 - Other specified disorders of bone density and structure, unspecified site Medications: New atorvastatin (Lipitor) Start Cholesterol med after September 02, 2023 10 mg PO DAILY 30 tabs 3RF E78.00 - Pure hypercholesterolemia, unspecified Coding Level of Care Code Est Pt Level 4 (71473) Diagnoses Hypercholesterolemia E78.00 Malignant neoplasm of right female breast, unspecified estrogen receptor status, unspecified site of breast C50.911 Breast location: unspecified site of breast Estrogen receptor status: unspecified Patient sex: female Laterality: right 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 Lymphoma type: non-Hodgkin Non-Hodgkin lymphoma type: B-cell B-cell lymphoma type: diffuse large B-cell Lymphoma site: head Overweight (BMI 25.0-29.9) E66.3 Osteopenia M85.80 Generalized anxiety disorder F41.1 Right shoulder pain M25.511 Preop exam for internal medicine Z01.818
[2023-08-23 14:42] VITALS: BP 118/68; PULSE 72; O2SAT 98; BMI 28.7
== END 2023-08-23 16:40 | disposition home or self-care (01) ==
PROVIDERS: PCP Internal Medicine; Visit Provider Internal Medicine
DX: E78.00 Pure hypercholesterolemia, unspecified (principal); C50.911 Malignant neoplasm of unspecified site of right female breast; C83.31 Diffuse large B-cell lymphoma, lymph nodes of head, face, and neck; E66.3 Overweight; M85.80 Other specified disorders of bone density and structure, unspecified site; F41.1 Generalized anxiety disorder; M25.511 Pain in right shoulder; Z01.818 Encounter for other preprocedural examination
CPT/HCPCS: 99214

== ENCOUNTER → 2023-08-23 15:19 | Outpatient (REF) | payer MEDICARE, MEDICAID, SELFPAY ==
--- NOTE | 2023-08-23 15:25 | ECG_ITS ---
Test Reason : preop Blood Pressure : / mmHG Vent. Rate : 063 BPM Atrial Rate : 063 BPM P-R Int : 158 ms QRS Dur : 078 ms QT Int : 414 ms P-R-T Axes : 041 000 022 degrees QTc Int : 423 ms Normal sinus rhythm Minimal voltage criteria for LVH, may be normal variant ( R in aVL ) Borderline ECG When compared with ECG of 24-APR-2015 12:19, Vent. rate has increased BY 22 BPM Referred By: Vito Santiago Electronically Signed By:[place]
== END ==
LOC: HO.CARD 15:19
PROVIDERS: PCP Internal Medicine; Visit Provider Internal Medicine
DX: Z01.818 Encounter for other preprocedural examination (principal)
CPT/HCPCS: 93005

== ENCOUNTER → 2023-08-23 15:25 | Outpatient (BNV) | payer MEDICARE, MEDICAID, SELFPAY | PROVIDERS: PCP Internal Medicine; Visit Provider Internal Medicine Cardiovascular Disease | DX: Z01.818 Encounter for other preprocedural examination (principal) | CPT/HCPCS: 93010 ==

== ENCOUNTER 2023-09-01 09:03 | Day surgery (SDC) | payer MEDICARE, MEDICAID, SELFPAY ==
[2023-08-14 10:28] VITALS: BMI 28.3
[2023-09-01] VITALS (7 sets, daily range): BP systolic 129–164; BP diastolic 58–77; PULSE 60–71; RESP 15–18; TEMP 36.1–36.2; O2SAT 95–100; BMI 28.3
--- NOTE | 2023-09-01 10:25 | HO.ANESPROP2 ---
Documented by User: Mya Miranda NP 08/28/23 10:39 HPI - Anesthesia Eval Consult details Narrative: 62yo F for Right Shoulder Arthroscopy, distal clavicle excision, acromioplasty, rotator cuff repair, 09/01/23 Hx breast ca and lymphoma. Cleared by Oncology. No signs of recurrent malignancy. [facility] Active Problems Active Problems: All Active Problems (Updated 08/14/23 @ 10:28 by Giulia Nance RN) Right shoulder pain (Acute) Left shoulder pain (Acute) Bilateral shoulder pain (Acute) Cervical cancer screening (Acute) Elevated fasting glucose (Acute) Obesity (BMI 30.0-34.9) (Acute) Generalized anxiety disorder (Acute) Osteopenia (Acute) Foreign body ingestion (Acute) Postmenopausal (Acute) Overweight (BMI 25.0-29.9) (Acute) Lymphoma (Acute) Breast cancer (Acute) Hypercholesterolemia (Acute) Osteoarthritis (Acute) Past Medical History Medical History (Updated 08/23/23 @ 15:02 by Vito Santiago MD) Obesity (BMI 30.0-34.9) Osteopenia Age-related osteoporosis without current pathological fracture Colonoscopy refused History of alcohol abuse Hypercholesterolemia Breast cancer Lymphoma Pituitary lesion Osteoarthritis Insomnia Inflammatory bowel disease Overweight (BMI 25.0-29.9) Anxiety and depression Family History Family History (Updated 12/07/22 @ 11:25 by Santa Fang [facility]) Father Colon cancer Mother Lymphoma Family/Other Breast cancer Surgical History Surgical History (Updated 08/14/23 @ 10:16 by Giulia Nance RN) History of hysteroscopy Hx of cystoscopy H/O colonoscopy History of bilateral breast reduction surgery History of surgery History of lumpectomy of right breast History of tonsillectomy Social History Social History (Updated 08/23/23 @ 15:06 by Vito Santiago MD) Household Members Other:: son Housing: House Are you a primary child care specialist to a significant other at home: No Do you presently have visiting nurse or other home services: Yes (son is [employer]CHNICIAN) Alcohol intake: former Patient Tobacco Use Status: Former Tobacco user Quit Date: age 42 Tobacco use type: Cigarette Years Smoked: quit 1999 e-Cigarette/Vaping Use: Never Used Second Hand Smoke Exposure: No Use of substances other than those prescribed or required for medical reasons: No Have you been hit, kicked, punched, or otherwise hurt by someone within the past year? If so, by whom?: No Are you DNR?: No Advance Directives: No Advance Directives Information Provided: Yes Advance Directives on File: No Recently lost weight without trying: No Eating poorly because of decreased appetite: No Nutrition Risks: No Nutritional Risk Poor oral hygiene: No (one slightly loose tooth, left upper front) service: No Current occupational status: disabled Cognitive needs: No Hearing needs: No Vision needs: No Meds Allergies Allergy/AdvReac Type Severity Reaction Status Date / Time No Known Allergies Allergy Verified 08/23/23 14:42 Home Medications Medication Instructions Recorded Confirmed Last Taken Type buspirone 5 mg tablet 15 mg PO BEDTIME anxiety 08/14/23 08/23/23 Unknown History cholecalciferol (vitamin D3) 25 25 mcg PO DAILY 08/14/23 08/23/23 Unknown History mcg (1,000 unit) capsule (Vitamin D3) lactobacillus comb no.10 20 20,000 mmu cells PO DAILY 08/14/23 08/23/23 Unknown History billion cell capsule (Probiotic) multivitamin 1 tab PO DAILY 08/14/23 08/23/23 Unknown History Exam Height,Weight and Vital Signs: Height 5 ft 8 in Weight 84.368 kg Pertinent Lab Results Pertinent Lab Results: Laboratory Tests 08/08/23 12:57 WBC 6.0 Hgb 13.6 Hct 42.0 Plt Count 265 Sodium 144 Potassium 4.3 Chloride 108 Carbon Dioxide 29 BUN 10 Creatinine 0.81 Assessment and Plan Assessment Anesthesia Assessment: Chart Reviewed Documented by User: Zeny Tellez DO 09/01/23 10:28 [facility] Past Medical History Medical History (Updated 08/23/23 @ 15:02 by Vito Santiago MD) Obesity (BMI 30.0-34.9) Osteopenia Age-related osteoporosis without current pathological fracture Colonoscopy refused History of alcohol abuse Hypercholesterolemia Breast cancer Lymphoma Pituitary lesion Osteoarthritis Insomnia Inflammatory bowel disease Overweight (BMI 25.0-29.9) Anxiety and depression Family History Family History (Updated 12/07/22 @ 11:25 by Santa Fang CMA) Father Colon cancer Mother Lymphoma Family/Other Breast cancer Family history of problems with anesthesia: No Surgical History Surgical History (Updated 08/14/23 @ 10:16 by Giulia Nance RN) History of hysteroscopy Hx of cystoscopy H/O colonoscopy History of bilateral breast reduction surgery History of surgery History of lumpectomy of right breast History of tonsillectomy History of Problems with Anesthesia: No Social History Social History (Updated 08/23/23 @ 15:06 by Vito Santiago MD) Household Members Other:: son Housing: House Are you a primary child care specialist to a significant other at home: No Do you presently have visiting nurse or other home services: Yes (son is POWER [employer] REPA[employer] TECHNICIAN) Alcohol intake: former Patient Tobacco Use Status: Former Tobacco user Quit Date: age 42 Tobacco use type: Cigarette Years Smoked: quit 1999 e-Cigarette/Vaping Use: Never Used Second Hand Smoke Exposure: No Use of substances other than those prescribed or required for medical reasons: No Have you been hit, kicked, punched, or otherwise hurt by someone within the past year? If so, by whom?: No Are you DNR?: No Advance Directives: No Advance Directives Information Provided: Yes Advance Directives on File: No Recently lost weight without trying: No Eating poorly because of decreased appetite: No Nutrition Risks: No Nutritional Risk Poor oral hygiene: No (one slightly loose tooth, left upper front) service: No Current occupational status: disabled Cognitive needs: No Hearing needs: No Vision needs: No Meds Allergies Allergy/AdvReac Type Severity Reaction Status Date / Time No Known Allergies Allergy Verified 08/23/23 14:42 Home Medications Medication Instructions Recorded Confirmed Last Taken Type buspirone 5 mg tablet 15 mg PO BEDTIME anxiety 08/14/23 08/23/23 Unknown History cholecalciferol (vitamin D3) 25 25 mcg PO DAILY 08/14/23 08/23/23 Unknown History mcg (1,000 unit) capsule (Vitamin D3) lactobacillus comb no.10 20 20,000 mmu cells PO DAILY 08/14/23 08/23/23 Unknown History billion cell capsule (Probiotic) multivitamin 1 tab PO DAILY 08/14/23 08/23/23 Unknown History Exam Exam Date and Time: September 01, 2023 1025 Height,Weight and Vital Signs: Height 5 ft 8 in Weight 84.368 kg Vital Signs Temperature 97.1 F 09/01/23 10:17 Pulse Rate 68 09/01/23 10:17 Respiratory Rate 18 09/01/23 10:17 Blood Pressure 129/70 09/01/23 10:17 Pulse Oximetry 97 09/01/23 10:17 Oxygen Delivery Method Room Air 09/01/23 10:17 Temperature 97.1 F 09/01/23 10:17 Pulse Rate 68 09/01/23 10:17 Respiratory Rate 18 09/01/23 10:17 Blood Pressure 129/70 09/01/23 10:17 Pulse Oximetry 97 09/01/23 10:17 Oxygen Delivery Method Room Air 09/01/23 10:17 Airway Mallampati Class: III TM Dist: >3cm Neck ROM: Full Loose/Missing/Broken Teeth: Yes (loose tooth #10) Heart: S1S2 Lungs: CTAB Assessment and Plan Assessment Anesthesia Assessment: Anesthesia Plan Discussed and Chart Reviewed Final Anesthetic Review Family History of Problems with Anesthesia: No History of Problems with Anesthesia: No NPO: Yes ASA Class: II Final Preanesthetic Review: No Changes in Pt Med Stat, Meds/Allgs Chart Reviewed, Consent Obtained/Reviewed and Anes Risks/Benef Reviewed Patient Risk: Low Procedure Risk: Low Assessment/Block/Sedation in SS: Assess/Block/Sedation-SS (right brachial plexus block) Anesthetic Plan Anesthetic Plan: GA, Regional Block (right brachial plexus block) and Agree w/ Assess. and Plan Disposition: Standard PACU
[2023-09-01] MEDS: Lactated Ringers 1,000 ML 100 ML IVCONT (10:34)
--- NOTE | 2023-09-01 13:45 | PM.OP ---
Brief Operative Note Date of Service: 09/01/23 Pre-op diagnosis: Right shoulder impingement syndrome, right shoulder acromioclavicular joint arthritis, right shoulder rotator cuff Post-op diagnosis: same Procedure: Right shoulder diagnostic arthroscopy with right shoulder arthroscopic distal clavicle excision, right shoulder arthroscopic acromioplasty, right shoulder mini-open rotator cuff repair Implants: One suture anchor (Lopez and Nephew Twinfix anchor with #2 Ultrabraid suture) Surgeon: Brody Ly MD Anesthesia: GETA and regional Was an Shipping Receiving Clerk used for this Procedure?: No Estimated blood loss (mL): 15 Pathology: none sent Condition: stable Disposition: PACU
--- NOTE | 2023-09-01 13:47 | P.OP_ITS ---
Operative Note Operative Note Date of Service: 09/01/23 Narrative: After the patient was identified as Jackeline Matthew and her right shoulder was initialed by myself the patient was brought to the holding area where a right shoulder interscalene regional block was performed by the anesthesiologist in routine fashion. The patient was then brought to the operating room where general anesthesia was induced by the anesthesiologist in routine fashion. The patient was given 2 g of IV Ancef preoperatively for infection prophylaxis. Examination under anesthesia of the patient's right shoulder showed full passive range of motion of the patient's right shoulder when compared to the left. The patient was gently positioned in the beach chair position with all bony prominences well padded. The patient's right shoulder region and upper extremity were prepped and draped in sterile fashion. A formal time-out was completed. A #11 scalpel blade was used to make a posterior portal 2 cm inferior and 1 cm medial to the posterolateral corner of the acromion. Blunt trocar technique was used to enter the glenohumeral joint in routine fashion. An anterior portal was made just lateral to the coracoid process after proper positioning was confirmed using a spinal needle. Diagnostic arthroscopy showed diffuse grade 1 and 2 degenerative changes of the glenoid and humeral head articular surfaces. The articular surfaces were made smooth using the arthroscopic shaver. There was a full-thickness tear of the supraspinatus tendon. There was no evidence of injury to the biceps tendon or its insertion onto the glenoid. There was no inflammation of the anterior joint capsule. The arthroscope was then placed from the posterior portal into the subacromial space. A lateral portal was made 2 fingerbreadths lateral to the anterior lateral corner of the acromion. The ArthroCare Wand was used to ablate soft tissues along the undersurface of the acromion as well as to excise the coracoacromial ligament. There was a sharp spur along the undersurface of the acromion which was removed using the hooded bur. The arthroscope was then placed into the lateral portal and the acromioplasty was completed with the bur in the posterior portal using the posterior aspect of the acromion as a cutting block. The ArthroCare Wand was then brought in through the anterior portal and was used to ablate soft tissues along the acromioclavicular joint and distal clavicle. The posterior and superior ligamentous structures were left intact. A distal clavicle excision of 8 mm was performed using the hooded bur. Any remaining bursal tissue was removed using the arthroscopic shaver. The subacrom ial space was irrigated and then drained. All arthroscopic instruments were removed. Sterile gloves were changed and the shoulder was once again prepped with Betadine. A #15 scalpel blade was used to extend the lateral portal to the lateral edge of the acromion. The subacromial tissues were dissected using electrocautery down to the superficial deltoid fascia. The trocar split in the anterior raphe of the deltoid was then extended to the lateral edge of the acromion using electrocautery and curved Page scissors. Any remaining bursal tissue was removed using curved Page scissors. Subacromial and subdeltoid adhesions were bluntly dissected. The undersurface of the acromion was palpated and it was smooth. A #2 Ethibond tag suture was placed into the supraspinatus tendon. The tendon was easily mobilized to its insertion point on the glenoid. The wound was irrigated with copious amounts of normal saline solution. One suture anchor was placed into the greater tuberosity in routine fashion. The rotator cuff repair was then performed using horizontal mattress sutures under minimal tension with the patient's elbow at their side. Following the repair the shoulder was taken through a full range of motion. The repair was stable. The wound was irrigated with copious amounts of normal saline solution. The superficial and deep deltoid fascia were closed with #1 Vicryl [id number] interrupted suture. The wound was once again irrigated. The subcutaneous tissues were closed with 2-0 Vicryl interrupted suture. The skin was closed with 3-0 Prolene subcuticular suture and Steri-Strips. The anterior and posterior portals were closed with 3-0 nylon interrupted suture. Dry sterile dressing was placed over all incisions. The patient's right upper extremity was placed into a sling. The patient was awoken and extubated in the operating room. The patient was transferred to the recovery room in stable condition.
[2023-09-01] MEDS: cefTRIAXone sodium 1 GM in 0.9 % Sodium Chloride 50 ML IV (13:59)
== END 2023-09-01 14:50 | disposition home or self-care (01) ==
PROVIDERS: PCP Internal Medicine; Visit Provider Orthopaedic Surgery
PROC: (CPT 29805; principal; 2023-09-01 11:50)
DX: S46.011A Strain of muscle(s) and tendon(s) of the rotator cuff of right shoulder, initial encounter (principal); M75.41 Impingement syndrome of right shoulder; M19.011 Primary osteoarthritis, right shoulder; M25.511 Pain in right shoulder; R53.1 Weakness; X50.0XXA Overexertion from strenuous movement or load, initial encounter; X50.9XXA Other and unspecified overexertion or strenuous movements or postures, initial encounter; Y93.9 Activity, unspecified; Y92.9 Unspecified place or not applicable; Y99.8 Other external cause status; E78.00 Pure hypercholesterolemia, unspecified; M81.0 Age-related osteoporosis without current pathological fracture; C85.90 Non-Hodgkin lymphoma, unspecified, unspecified site; Z85.3 Personal history of malignant neoplasm of breast; E66.3 Overweight; Z68.28 Body mass index [BMI] 28.0-28.9, adult; F41.8 Other specified anxiety disorders; Z98.890 Other specified postprocedural states; Z79.899 Other long term (current) drug therapy
CPT/HCPCS: 23412; 29824; 29826; C1713; J0131; J0171; J0690; J0696; J1100; J1885; J2250; J2405; J2704; J2795; J3010

== ENCOUNTER → 2023-09-01 09:03 | Outpatient (BNV) | payer MEDICARE, MEDICAID, SELFPAY | PROVIDERS: PCP Internal Medicine; Visit Provider Orthopaedic Surgery | DX: M75.41 Impingement syndrome of right shoulder (principal); M19.011 Primary osteoarthritis, right shoulder; M75.121 Complete rotator cuff tear or rupture of right shoulder, not specified as traumatic | CPT/HCPCS: 23412; 29822; 29824; 29826 ==

== ENCOUNTER 2023-09-14 09:54 | Outpatient (AMB) | payer MEDICARE, MEDICAID, SELFPAY ==
--- NOTE | 2023-09-14 06:30 | A.OFFVIS_ITS ---
Intake Vital Signs 09/14/23 10:13 Height 5 ft 8 in Weight 180 lb BMI 27.4 Intake Visit Reasons: PO-Rt Shld RTC Repair 09/01/23 DR Tipton Note: Jackeline 62 yr old female presents today for her PO visit for her right shoulder RTC Repair 09/01/23 Dressing and sutures removed in office. States she is having mild pain and discomfort Information Interpreted: non-clinical & clinical Accompanied by: Self / Same As Patient Allergies No Known Allergies Allergy (Verified 09/14/23 10:12) HPI PO-Rt Shld RTC Repair 09/01/23 DR PEÑA Details 62-year-old female who returns to the [facility] today for post-op right shoulder RTC repair, 09/01/[address] Ly. She states she has mild pain and discomfort in her shoulder which is aggravated at night with sleeping and she has to keep her arm in a certain position to help her sleep. She is doing well otherwise and has no other concerns today. [facility] Medical History Obesity (BMI 30.0-34.9) Osteopenia Age-related osteoporosis without current pathological fracture Colonoscopy refused History of alcohol abuse Hypercholesterolemia Breast cancer Lymphoma Pituitary lesion Osteoarthritis Insomnia Inflammatory bowel disease Overweight (BMI 25.0-29.9) Anxiety and depression Surgical History History of hysteroscopy Hx of cystoscopy H/O colonoscopy History of bilateral breast reduction surgery History of surgery History of lumpectomy of right breast History of tonsillectomy Family History Father Colon cancer Mother Lymphoma Family/Other Breast cancer Social History Household Members Other:: son Housing: House Are you a primary date night caregiver to a significant other at home: No Do you presently have visiting nurse or other home services: Yes (son is BAKE ROOM WORKER) Alcohol intake: former Patient Tobacco Use Status: Former Tobacco user Quit Date: age 42 Tobacco use type: Cigarette Years Smoked: quit 1999 e-Cigarette/Vaping Use: Never Used Second Hand Smoke Exposure: No service: No Current occupational status: disabled Cognitive needs: No Hearing needs: No Vision needs: No Review of Systems Const All systems reviewed & are unremarkable except as noted in HPI and below Physical Exam Vital Signs: BMI result Body Mass Index 27.4 Extrem Other: Right shoulder: Normal to inspection. No erythema or drainage. Sensation intact. Results Reviewed Results Reviewed: Brief Operative Note Date of Service: 09/01/23 Pre-op diagnosis: Right shoulder impingement syndrome, right shoulder acromioclavicular joint arth ritis, right shoulder rotator cuff Post-op diagnosis: same Procedure: Right shoulder diagnostic arthroscopy with right shoulder arthroscopic distal clavicle excision , right shoulder arthroscopic acromioplasty, right shoulder mini-open rotator cuff repair Implants: One suture anchor (Lopez and Nephew Twinfix anchor with #2 Ultrabraid suture) Surgeon: Brody Ly MD Assessment & Plan Assessment & Plan (1) S/P rotator cuff repair: Code(s): Z98.890 - Other specified postprocedural states Plan Sutures removed today, steri strips applied. I did reassure her that her incision is healing well and she is able to shower. I educated her on steri strips and how they will fall on their own. She will begin a course of physical therapy to work on ROM and periscapular stabilization, no RTC strengthening at this time. She will see me back in [address] Ly, sooner if needed. Orders: Orders PT Evaluation and Treatment Today Z98.890 - Other specified postprocedural states Medications: Changed From oxycodone-acetaminophen 5-325 mg (Percocet) 1 tab PO .QD 30 days PRN 8 tabs 0RF pain To oxycodone-acetaminophen 5-325 mg (Percocet) 1 tab PO Q6H PRN 42 tabs 0RF pain 7 days Patient Instructions: Scribed for Barrera Garcia PA-C, by Eliezer Deleon medical staff manager, on 09/14/2023 at 9:45 AM EST. IBarrera PA-C, have personally reviewed and agree with the information entered by the scribe. Coding Level of Care Code Global (88286) Diagnoses S/P rotator cuff repair Z98.890
[2023-09-14 10:13] VITALS: BMI 27.4
== END 2023-09-14 11:29 | disposition home or self-care (01) ==
PROVIDERS: PCP Internal Medicine; Visit Provider Physician Assistant
DX: Z98.890 Other specified postprocedural states (principal)
CPT/HCPCS: 99024

== ENCOUNTER → 2023-09-14 09:54 | Outpatient (BNVA) | payer MEDICARE, MEDICAID, SELFPAY | PROVIDERS: PCP Internal Medicine; Visit Provider Physician Assistant | DX: Z48.1 Encounter for planned postprocedural wound closure (principal); Z98.890 Other specified postprocedural states | CPT/HCPCS: 99212 ==

== ENCOUNTER 2023-11-22 09:45 | Outpatient (AMB) | payer MEDICARE, MEDICAID, SELFPAY ==
--- NOTE | 2023-11-22 10:17 | MHC.OFFVIS ---
Intake Visit Reasons: OV-Rt Shld RTC Repair 09/01/23 Intake Note: Jackeline is a 63 year old female who presents to the office today for rt shoulder repair 09/01/23. Pt states she is feeling well and states she is currently in PT. She states her ROM has improved with PT. she denies any fevers or chills. She has been taking Tylenol which gives her minimal relief. Allergies No Known Allergies Allergy (Verified 11/22/23 10:18) Medication List - Last Reconciled 11/22/23 by Brody Ly MD alendronate 70 mg PO QWEEK alprazolam 0.25 mg (1/2 x 0.5 mg) PO BID-TID PRN 30 days atorvastatin 10 mg PO DAILY buspirone 15 mg PO BEDTIME cholecalciferol (vitamin D3) (Vitamin D3) 25 mcg PO DAILY lactobacillus comb no.10 (Probiotic) 20,000 mmu cells PO DAILY lidocaine 5% (Lidoderm) 2 patches topical DAILY meloxicam 15 mg PO DAILY multivitamin 1 tab PO DAILY sertraline 150 mg (1.5 x 100 mg) PO DAILY 90 days zolpidem 10 mg PO BEDTIME [facility] Medical History Obesity (BMI 30.0-34.9) Osteopenia Age-related osteoporosis without current pathological fracture Colonoscopy refused History of alcohol abuse Hypercholesterolemia Breast cancer Lymphoma Pituitary lesion Osteoarthritis Insomnia Inflammatory bowel disease Overweight (BMI 25.0-29.9) Anxiety and depression Surgical History History of hysteroscopy Hx of cystoscopy H/O colonoscopy History of bilateral breast reduction surgery History of surgery History of lumpectomy of right breast History of tonsillectomy Family History Father Colon cancer Mother Lymphoma Family/Other Breast cancer Social History Household Members Other:: son Housing: House Are you a primary healthcare network consultant to a significant other at home: No Do you presently have visiting nurse or other home services: Yes (son is INSTRUCTIONAL COACH) Alcohol intake: former Patient Tobacco Use Status: Former Tobacco user Tobacco use type: Cigarette Years Smoked: quit 1999 e-Cigarette/Vaping Use: Never Used Second Hand Smoke Exposure: No service: No Current occupational status: disabled Cognitive needs: No Hearing needs: No Vision needs: No Physical Exam Extrem Other: Physical examination of the patient's right shoulder shows the surgical incisions well healed, no erythema, minimal discomfort with resisted forward flexion, no discomfort with resisted internal or external rotation, slightly decreased active and passive range of motion when compared to her left shoulder, mild to moderate discomfort with range of motion Assessment & Plan Assessment & Plan (1) Right shoulder pain: Code(s): M25.511 - Pain in right shoulder Category: Medical Plan Ms. Matthew continues to do fairly well after undergoing right shoulder rotator cuff repair surgery on 09/01/2023. She does remain somewhat stiff. She is encouraged to continue with her range of motion exercises even when she is not in therapy. I did give her a prescription for Tylenol with codeine to help with her discomfort. The do's and don'ts of lifting were discussed at length patient. She will contact me prior to her follow-up appointment in 2 months should any questions or concerns arise. Feel free to call me at any time should questions regarding her orthopedic management arise. Medications: New acetaminophen-codeine 300-30 mg 1 tab PO Q12H PRN 30 tabs 0RF pain Coding Level of Care Code Global (44136) Diagnoses Right shoulder pain M25.511
== END 2023-11-22 10:46 | disposition home or self-care (01) ==
PROVIDERS: PCP Internal Medicine; Visit Provider Orthopaedic Surgery
DX: M25.511 Pain in right shoulder (principal)
CPT/HCPCS: 99024

== ENCOUNTER → 2023-11-22 09:45 | Outpatient (BNVA) | payer MEDICARE, MEDICAID, SELFPAY | PROVIDERS: PCP Internal Medicine; Visit Provider Orthopaedic Surgery | DX: M25.511 Pain in right shoulder (principal) | CPT/HCPCS: 99212 ==

== ENCOUNTER 2023-11-28 08:41 | Outpatient (AMB) | payer MEDICARE, MEDICAID, SELFPAY ==
--- NOTE | 2023-11-28 08:42 | A.OFFPC_ITS ---
Vital Signs 11/28/23 08:43 Height 5 ft 8 in Weight 191 lb 4 oz BMI 29.1 BP 118/82 Blood Pressure Location Lt brachial Position Sitting Pulse 59 Pulse Source Pulse Oximeter Pulse Oximetry (%) 97 Oxygen Delivery Method Room Air Intake Visit Reasons: Weight loss medication Heel Attacher Wood Required: No Accompanied by: Self / Same As Patient Allergies No Known Allergies Allergy (Verified 11/28/23 08:44) Tobacco use date assessed: 08/23/23 Fall risk assessment: No Falls in past year Last assessed Fall Risk: 11/28/23 Dental Screening Dental Screen Date: 08/23/23 HPI Weight loss medication HPI Details 63-year-old overweight female(noted 11 l b weight gain) with a history of breast cancer and lymphoma 2012 in remission hypercholesterolemia osteopenia generalized anxiety disorder last seen in 09/06/2023 for preop evaluation. Patient is up-to-date with the Cologuard bone density is due mammogram up-to-date. Patient had the right shoulder rotator cuff repair September 01 2023 and currently on physical therapy [facility] Medical History (Updated 11/28/23 @ 08:55 by Vito Santiago MD) Bilateral shoulder pain Left shoulder pain Right shoulder pain Preop exam for internal medicine Obesity (BMI 30.0-34.9) Osteopenia Age-related osteoporosis without current pathological fracture Colonoscopy refused History of alcohol abuse Hypercholesterolemia Breast cancer Lymphoma Pituitary lesion Osteoarthritis Insomnia Inflammatory bowel disease Overweight (BMI 25.0-29.9) Anxiety and depression Surgical History History of hysteroscopy Hx of cystoscopy H/O colonoscopy History of bilateral breast reduction surgery History of surgery History of lumpectomy of right breast History of tonsillectomy Family History Father Colon cancer Mother Lymphoma Family/Other Breast cancer Social History Household Members Other:: son Housing: House Are you a primary childbirth and infant care teacher to a significant other at home: No Do you presently have visiting nurse or other home services: Yes (son is LAST IRONER) Alcohol intake: former Patient Tobacco Use Status: Former Tobacco user Tobacco use type: Cigarette Years Smoked: quit 1999 e-Cigarette/Vaping Use: Never Used Second Hand Smoke Exposure: No service: No Current occupational status: disabled Cognitive needs: No Hearing needs: No Vision needs: No Questionnaire PHQ-9 Over the last 2 weeks, how often have you been bothered by any of the following problems? 1. Little interest or pleasure in doing things: several days 2. Feeling down, depressed, or hopeless: more than half the days 3. Trouble falling or staying asleep, or sleeping too much: several days 4. Feeling tired or having little energy: nearly every day 5. Poor appetite or overeating: more than half the days 6. Feeling bad about yourself - or that you are a failure or have let yourself or your family down: more than half the days 7. Trouble concentrating on things, such as reading the newspaper or watching television: several days 8. Moving or speaking so slowly that other people could have noticed. Or the opposite - being so fidgety or restless that you have been moving around a lot more than usual: several days 9. Thoughts that you would be better off or of hurting yourself in some way: several days Total score: 14 Depression Screening Interpretation: Positive Depression Screening Follow-up: In treatment Depression Screening Done: Yes 12473 - PHQ-9 Billing: Yes Source: Developed by Drs. Jay Aguilera, Roxana Addison, Mikal Clarke and colleagues, with an educational shu from [employer]. Thrive Questionnaire Date Thrive assessed: 11/28/23 I am a: Patient What is your living situation today?: I have a steady place to live Within the past 12 months, did the food you bought not last and you didn't have the money to get more?: Never true Within the past 12 months, did you worry whether your food would run out before you got money to buy more?: Never true Do you have trouble paying for medicines?: No Do you have trouble getting transportation to medical appointments?: No Do you have trouble paying your heating and electricity bill?: No Do you have trouble taking care of your child, family member or friend?: No Do you have trouble with day-to-day activities such as bathing, preparing meals, shopping, managing finances, etc.?: No Are you currently unemployed and looking for a job?: No Are you interested in more education?: No Currently or been in a relationship where the following occur: no concerns reported THRIVE Score: 0 AUDIT C Alcohol Use Questionnaire (AUDIT-C) 1. How often do you have a drink containing alcohol?: Never 2. How many drinks containing alcohol do you have on a typical day when you are drinking?: 1 or 2 3. How often do you have six or more drinks on one occasion?: Never Total Score: 0 Score Reviewed/Action Taken: No ROSY-7 AMB Questionnaire ROSY-7 Date ROSY - 7 assessed: 11/28/23 Feeling nervous, anxious, or on edge: 0 = Not at all Not being able to stop or control worryin = Not at all Worrying too much about different things: 0 = Not at all Trouble relaxin = Not at all Being so restless that it is hard to sit still: 0 = Not at all Becoming easily annoyed or irritable: 0 = Not at all Feeling afraid as if something awful might happen: 0 = Not at all Total ROSY-7 score (0-4 normal; 5-9 mild; 10-14 moderate; 15-21 severe): 0 Source: Developed by Drs. Jay Aguilera, Roxana Addison, Mikal Clarke and colleagues, with an educational shu from [employer]. Physical exam (Primary Care) Vital Signs: Last Vital Signs Pulse 59 11/28/23 08:43 BP 118/82 11/28/23 08:43 Pulse Ox 97 11/28/23 08:43 Oxygen Delivery Method Room Air 11/28/23 08:43 BMI result Body Mass Index 29.1 Tobacco/Smoking Status: Tobacco use Status Tobacco use date assessed 08/23/23 11/28/23 08:51 Patient Tobacco Use Status Former Tobacco user 11/28/23 08:51 Tobacco use type Cigarette 11/28/23 08:51 e-Cigarette/Vaping Use Never Used 11/28/23 08:51 PHQ-9: PHQ-9 Score PHQ-9: Total score 14 11/28/23 08:51 Depression Screening Interpretation: Positive Depression Screening Follow-up: In treatment Thrive Assessment: Date of Thrive Assessment Date Thrive assessed 11/28/23 11/28/23 08:51 Currently or been in a relationship where the following occur: no concerns reported Const General: alert; No acute distress Eyes Conjunctivae: conjunctivae normal Resp Auscultation: clear to auscultation bilaterally Cardio Rate: regular rate Rhythm: regular rhythm GI Inspection: Yes normal to inspection Extrem General: Yes normal to inspection and No edema Assessment and Plan Assessment & Plan (1) Status post right rotator cuff repair: Comment: 09/01/2023 Code(s): Z98.890 - Other specified postprocedural states Plan: Patient on active physical therapy follows up with orthopedics (2) Hypercholesterolemia: Code(s): E78.00 - Pure hypercholesterolemia, unspecified Plan: Avoid fried foods, chicken skin, eggs, butter margarine, pastries and meat. 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 Lorenz November 2012 Code(s): C85.90 - Non-Hodgkin lymphoma, unspecified, unspecified site Qualifiers: Lymphoma type: non-Hodgkin Non-Hodgkin lymphoma type: B-cell B-cell lymphoma type: diffuse large B-cell Lymphoma site: head Qualified Code(s): C83.31 - Diffuse large B-cell lymphoma, lymph nodes of head, face, and neck Plan: Patient follows up with Hematology-Oncology and no signs of recurrence (5) Overweight (BMI 25.0-29.9): Code(s): E66.3 - Overweight Plan: Diet and exercise (6) Osteopenia: Code(s): M85.80 - Other specified disorders of bone density and structure, unspecified site Plan: Patient is reminded about bone density Medications: New semaglutide (weight loss) (Wegovy) administer weeks 1 through 4 of therapy 0.25 mg (0.5 mL) subcut QWEEK 2 mL 0RF E66.3 - Overweight Coding Level of Care Code Est Pt Level 4 (74875) Complex EM visit Add On G2211 Diagnoses Status post right rotator cuff repair Z98.890 Hypercholesterolemia E78.00 Malignant neoplasm of right female breast, unspecified estrogen receptor status, unspecified site of breast C50.911 Breast location: unspecified site of breast Estrogen receptor status: unspecified Patient sex: female Laterality: right 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 Lymphoma type: non-Hodgkin Non-Hodgkin lymphoma type: B-cell B-cell lymphoma type: diffuse large B-cell Lymphoma site: head Overweight (BMI 25.0-29.9) E66.3 Osteopenia M85.80
[2023-11-28 08:43] VITALS: BP 118/82; PULSE 59; O2SAT 97; BMI 29.1
== END 2023-11-28 10:50 | disposition home or self-care (01) ==
PROVIDERS: PCP Internal Medicine; Visit Provider Internal Medicine
DX: Z98.890 Other specified postprocedural states (principal); E78.00 Pure hypercholesterolemia, unspecified; C50.911 Malignant neoplasm of unspecified site of right female breast; C83.31 Diffuse large B-cell lymphoma, lymph nodes of head, face, and neck; E66.3 Overweight; M85.80 Other specified disorders of bone density and structure, unspecified site
CPT/HCPCS: 99214; G2211

== ENCOUNTER 2023-11-28 09:18 | Outpatient (REF) | payer MEDICARE, MEDICAID, SELFPAY ==
[2023-11-28 11:28] LABS: Alanine Aminotransferase 23 U/L (0-31); Albumin Level 4.1 g/dL (3.5-5.0); Alkaline Phosphatase 62 U/L (39-117); Anion Gap 11 (12-20); Aspartate Amino Transferase 16 U/L (5-31); Bilirubin Total 0.2 mg/dL (0.0-1.0); Calcium 10.1 mg/dL (8.4-10.2); Carbon Dioxide 27 mmol/L (22-29); Chloride 110 mmol/L (96-108); Cholesterol 190 mg/dL (<200); Estimated Glomerular Filt Rate > 60; Glucose Random 86 mg/dL (60-115); HDL Cholesterol 59 mg/dL (>40); LDL Cholesterol Calculated 107 mg/dL (<100); Potassium 4.2 mmol/L (3.3-5.1); Sodium 144 mmol/L (135-145); Total Protein 7.6 g/dL (6.5-8.0); Triglycerides 121 mg/dL (<150)
[2023-11-28 11:50] LABS: Blood Urea Nitrogen 13 mg/dL (9-16)
== END 2023-11-28 09:19 | disposition home or self-care (01) ==
LOC: HO.LAB 09:18
PROVIDERS: PCP Internal Medicine; Visit Provider Internal Medicine
DX: E78.00 Pure hypercholesterolemia, unspecified (principal)
CPT/HCPCS: 36415; 80053; 80061

== ENCOUNTER 2024-01-24 08:58 | Outpatient (AMB) | payer MEDICARE, MEDICAID, SELFPAY ==
--- NOTE | 2024-01-24 08:59 | A.OFFVIS_ITS ---
Intake Visit Reasons: OV-Rt Shld RTC Repair 09/01/23 LALAF/Tina Intake Note: Jackeline is a 63 year old female who presents to the office today for a follow up Rt Shld RTC Repair 09/01/23. Pt states she is feeling well and her ROM is improving with PT. she continues to go to formal physical therapy here at [facility]. She denies any fevers or chills. Allergies No Known Allergies Allergy (Verified 01/24/24 09:00) Medication List - Last Reconciled 01/24/24 by Brody Ly MD alendronate 70 mg PO QWEEK alprazolam 0.25 mg (1/2 x 0.5 mg) PO BID-TID PRN 30 days atorvastatin 10 mg PO DAILY buspirone 15 mg PO BEDTIME cholecalciferol (vitamin D3) (Vitamin D3) 25 mcg PO DAILY lactobacillus comb no.10 (Probiotic) 20,000 mmu cells PO DAILY lidocaine 5% (Lidoderm) 2 patches topical DAILY meloxicam 15 mg PO DAILY multivitamin 1 tab PO DAILY sertraline 150 mg (1.5 x 100 mg) PO DAILY 90 days zolpidem 10 mg PO BEDTIME FORMERLY [facility], 1928–1983 Medical History (Updated 01/24/24 @ 09:48 by Brody Ly MD) Right shoulder pain Bilateral shoulder pain Left shoulder pain Preop exam for internal medicine Obesity (BMI 30.0-34.9) Osteopenia Age-related osteoporosis without current pathological fracture Colonoscopy refused History of alcohol abuse Hypercholesterolemia Breast cancer Lymphoma Pituitary lesion Osteoarthritis Insomnia Inflammatory bowel disease Overweight (BMI 25.0-29.9) Anxiety and depression Surgical History History of hysteroscopy Hx of cystoscopy H/O colonoscopy History of bilateral breast reduction surgery History of surgery History of lumpectomy of right breast History of tonsillectomy Family History Father Colon cancer Mother Lymphoma Family/Other Breast cancer Social History Household Members Other:: son Housing: House Are you a primary skin care instructor to a significant other at home: No Do you presently have visiting nurse or other home services: Yes (son is ASSISTANT FINANCIAL ACCOUNTANT) Alcohol intake: former Patient Tobacco Use Status: Former Tobacco user Tobacco use type: Cigarette Years Smoked: quit 1999 e-Cigarette/Vaping Use: Never Used Second Hand Smoke Exposure: No service: No Current occupational status: disabled Cognitive needs: No Hearing needs: No Vision needs: No Physical Exam Const Other: Well-nourished well-developed very friendly female awake alert and oriented x3 in no acute distress Extrem Other: Bilateral upper extremity examination shows good capillary refill, no skin lesions noted, normal sensation light touch Right shoulder examination shows slightly decreased range of motion when compared to her left shoulder, 4+ out of 5 strength with supraspinatus testing, no discomfort with resisted internal or external rotation, minimal discomfort with resisted forward flexion Assessment & Plan Assessment & Plan (1) Right shoulder pain: Code(s): M25.511 - Pain in right shoulder Category: Medical Plan Ms. Matthew continues to do well after undergoing right shoulder rotator cuff repair surgery on 09/01/2023. She will continue going to formal physical therapy for now. She will gradually transition to a home exercise program. The do's and don'ts of lifting were discussed at length with the patient. She will contact me prior to her follow-up appointment in 3 months should any questions or concerns arise. Feel free to call me at any time should questions regarding her orthopedic management arise. I spent 22 minutes in reviewing the patient's records and imaging studies, seeing the patient and documenting in the medical record. Coding Level of Care Code Est Pt Level 3 (83930) Diagnoses Right shoulder pain M25.511
== END 2024-01-24 09:25 | disposition home or self-care (01) ==
PROVIDERS: PCP Internal Medicine; Visit Provider Orthopaedic Surgery
DX: M25.511 Pain in right shoulder (principal)
CPT/HCPCS: 99213

== ENCOUNTER → 2024-01-24 08:58 | Outpatient (BNVA) | payer MEDICARE, MEDICAID, SELFPAY | PROVIDERS: PCP Internal Medicine; Visit Provider Orthopaedic Surgery | DX: M25.511 Pain in right shoulder (principal) | CPT/HCPCS: 99212 ==

== ENCOUNTER 2024-01-26 09:00 | Outpatient (RCR) | payer MEDICARE, MEDICAID, SELFPAY ==
--- NOTE | 2023-10-26 09:35 | MHC.PT.EP ---
[facility] [place] Office [address] Jimi Fair [address] [phone] F: [phone] F: [phone] F: [phone] F: [phone] Physical Therapy Plan of Care Date of Evaluation: 10/20/23 Date of Surgery: 09/01/23 Diagnosis: R RTC repair by Dr Ly Assessment: Pt is a 62yo female who presents 7 weeks s/p R RTC repair with significant pain, impaired ROM, and poor stability of shoulder overall. ?Good compliance with recommendation for home rehab or compliance with sling use. Pt did not apply CP to shoulder for pain/edema control previously, and reports significant pain relief following first PT session as an outpatient. Skilled PT indicated to address edema/pain, promote ROM to improve her functional use of UE. Pt in agreement with POC and is motivated to participate. Frequency and Duration: The patient will be seen 2x/week x 6 weeks Short Term Goals: 1. Pt will report <5/10 pain with compliance with CP application and ROM exercises at home. 2. In 3 weeks, improve PROM R shoulder 15 degrees all planes. 3. In 3 weeks, patient will be able to complete sidelying ER with good scapular stability. Website Developer Goals: 1. In 6 weeks, patient will be able to elevate R shoulder to 145 degrees without pain. 2. In 6 weeks, patient will demonstrate > 4/5 all planes R shoulder and periscap musculature. 3. Improve SPADI by 30 points. Treatment Plan: Modalities to reduce pain, spasms and effusion. Manual therapy to restore motion and function. Therapeutic exercise to improve strength and flexibility. Neuromuscular re-education for posture and balance. Therapeutic activities to return to functional activities of daily living. Electronically signed by: Vani Moss PT, DPT Please sign and return to therapist. Thank you for your referral.
--- NOTE | 2024-04-24 10:36 | MHC.PT.DC ---
[facility] [place] Office [place] Office [place] Office [address] Jimi Fair [address] [phone] F: [phone] F: [phone] F: [phone] F: [phone] Physical Therapy Discharge Report Diagnosis: R RTC repair by Dr Ly Date of Surgery: 09/01/23 Date of Evaluation: 10/20/23 Date of Discharge: 01/26/24 Treatments to Date: 14 Cancellations to Date: 2 No Shows to Date: 2 Discharge Status: Improved Function Independent with HEP Discharge Summary: Pt is a 62yo female who presents 7 weeks s/p R RTC repair with significant pain, impaired ROM, and poor stability of shoulder overall. ?Good compliance with recommendation for home rehab or compliance with sling use. Pt did not apply CP to shoulder for pain/edema control previously, and reports significant pain relief following first PT session as an outpatient. Skilled PT indicated to address edema/pain, promote ROM to improve her functional use of UE. Pt in agreement with POC and is motivated to participate. Pt participated in 14 treatment sessions, gradually improved her shoulder AROM to allow for functional use of arm for housechores, reaching onto shelves. Pt with reduced pain overall and learned self-management techniques for pain. Pt recommended to continue daily HEP to maintain mobility, and to continue periscap strengthening and to avoid hiking her shoulder. Pt in agreement with D/C to HEP at this time. Thank you for this referral. Electronically signed by: Vani Moss PT, DPT Please sign and return to therapist. Thank you for your referral.
== END 2024-04-24 10:36 | disposition home or self-care (01) ==
LOC: HO.PT 09:00
PROVIDERS: PCP Internal Medicine; Visit Provider Physician Assistant
DX: Z98.890 Other specified postprocedural states (principal)
CPT/HCPCS: 97110; 97140; 97162; 97530; 97535

== ENCOUNTER 2024-03-13 09:12 | Outpatient (REF) | payer MEDICARE, MEDICAID, SELFPAY ==
--- NOTE | ~2024-03-13 | MM_ITS ---
EXAMINATION: MM SCREENING DIGITAL BREAST TOMOSYNTHESIS, BILATERAL CLINICAL INFORMATION: Screening. Asymptomatic. COMPARISON: Mammography: Comparison is made with available priors TECHNIQUE: Digital breast mammography with tomosynthesis is performed in both the craniocaudal and mediolateral oblique views along with computer-aided detection (CAD). FINDINGS: There are scattered areas of fibroglandular density (ACR BI-RADS breast composition Category b). Bilateral reduction mammoplasty. There are no significant masses, abnormal calcifications, or other abnormalities. MM/MM tomosynthesis screening BI IMPRESSION: No mammographic evidence of malignancy. ASSESSMENT: BI-RADS BI-RADS 2 - Benign Findings RECOMMENDATION: Routine annual mammography screening. 1 year F/U This examination should not preclude the clinical evaluation of a suspicious palpable abnormality. This patient's information was entered into a reminder system with a target due date for their next mammogram. Electronically signed by: Rekha Bone DO 03/25/2024 05:15 PM EDT
--- NOTE | ~2024-03-13 | MM_ITS ---
EXAMINATION: BONE DENSITOMETRY CLINICAL INDICATION: Osteoporosis. COMPARISON: Previous BD dated 10/14/2021 and baseline BD dated 10/23/2014. TECHNIQUE: Using a [employer] DXA System (software version: 13.1) manufactured by [employer], dual-energy x-ray absorptiometry was performed of the lumbar spine and left hip. The images are of good technical quality. Summary results are attached. FINDINGS: LEFT FEMUR, NECK: Current: BMD 0.884 g/cm2, Z-score -0.9, T-score -1.1, osteopenia. Prior: BMD 0.834 g/cm2. Baseline: BMD 0.915 g/cm2. LEFT FEMUR, TOTAL: Current: BMD 0.969 g/cm2, Z-score -0.5, T-score -0.3, normal, 4.2% increase from previous, 0.1% increase from baseline (<5% change is not significant). Prior: BMD 0.930 g/cm2. Baseline: BMD 0.968 g/cm2. AP SPINE L1-L4: Current: BMD 1.066 g/cm2, Z-score -0.6, T-score -1.0, normal, 8.6% increase from previous, 5.8% increase from baseline (<5% change is not significant). Prior: BMD 0.982 g/cm2. Baseline: BMD 1.008 g/cm2. IDENTIFIED RISK FACTORS: Early menopause, osteoporosis, alcohol (3 or more units per day), secondary osteoporosis. HISTORY OF FRACTURE: None listed. MEDICATIONS: None listed. MM/XR DEXA axial skeleton IMPRESSION: 1. DIAGNOSIS: Osteopenia based on the lowest T-score value of -1.1 in the femoral neck applying World Health Organization criteria. 2. 10-YEAR FRACTURE RISK PREDICTION, FRAX: Major osteoporotic fracture (clinical spine, forearm, hip or shoulder) 4.3%. Hip fracture 0.4%. 3. Treatment Recommendations: NOF guidelines recommend consideration for treatment in postmenopausal women and men age 50 and older presenting with the following: -A hip or vertebral (clinical or morphometric) fracture. -T-score less than or equal to -2.5 at the femoral neck or spine after appropriate evaluation to exclude secondary causes. -Low bone mass at the hip or spine and a 10-year fracture probability by FRAX of greater than or equal to 3% for hip fracture or greater than or equal to 20% for major osteoporotic fracture based on the [place] adapted WHO algorithm. 4. Other Recommendations: All treatment decisions require clinical judgment and consideration of individual patient factors, including patient preferences, comorbidities, previous drug use, risk factors not captured in the FRAX model (e.g. frailty, falls, vitamin D deficiency, increased bone turnover, interval significant decline in bone density) and possible under or overestimation of fracture risk by FRAX. Additional medical evaluation for secondary cause of low bone mineral density may be appropriate. FUTURE SCAN RECOMMENDATION: People with diagnosed cases of osteoporosis or at high risk for fracture should have regular bone mineral density tests. For patients eligible for Medicare, routine testing is allowed once every 2 years. The testing frequency can be increased to one year for patients who have rapidly progressing disease, those who are receiving or discontinuing medical therapy to restore bone mass, or have additional risk factors. Electronically signed by: Ines Ramos MD 03/27/2024 11:21 AM GENAROT BALDOMERO
== END 2024-03-13 09:13 | disposition home or self-care (01) ==
LOC: HO.MAMMO 09:12
PROVIDERS: PCP Internal Medicine; Visit Provider Internal Medicine
DX: Z12.31 Encounter for screening mammogram for malignant neoplasm of breast (principal); M81.0 Age-related osteoporosis without current pathological fracture; M85.80 Other specified disorders of bone density and structure, unspecified site
CPT/HCPCS: 77063; 77067; 77080

== ENCOUNTER → 2024-03-13 10:15 | Outpatient (BNV) | payer MEDICARE, MEDICAID, SELFPAY | PROVIDERS: PCP Internal Medicine; Visit Provider Internal Medicine | DX: Z12.31 Encounter for screening mammogram for malignant neoplasm of breast (principal) | CPT/HCPCS: 77063; 77067 ==

== ENCOUNTER 2024-04-15 13:28 | Outpatient (AMB) | payer MEDICARE, MEDICAID, SELFPAY ==
--- NOTE | 2024-04-15 13:49 | AM.OFFVISMDC ---
Intake Vital Signs 04/15/24 13:51 Height 5 ft 8 in Weight 189 lb BMI 28.7 BP 130/82 Blood Pressure Location Lt brachial Position Sitting Pulse 54 Pulse Source Pulse Oximeter Pulse Oximetry (%) 97 Oxygen Delivery Method Room Air Intake Visit Reasons: AWV [employer] Superintendent Required: No Accompanied by: Self / Same As Patient Allergies No Known Allergies Allergy (Verified 04/15/24 14:06) Medication List - Last Reconciled 04/15/24 by Adali Valentine PA-C alendronate 70 mg PO QWEEK alprazolam 0.25 mg (1/2 x 0.5 mg) PO BID-TID PRN 30 days atorvastatin 10 mg PO DAILY buspirone 15 mg PO BEDTIME celecoxib (Celebrex) 200 mg PO DAILY PRN cholecalciferol (vitamin D3) (Vitamin D3) 25 mcg PO DAILY lactobacillus comb no.10 (Probiotic) 20,000 mmu cells PO DAILY lidocaine 5% (Lidoderm) 2 patches topical DAILY multivitamin 1 tab PO DAILY sertraline 150 mg (1.5 x 100 mg) PO DAILY 90 days zolpidem 10 mg PO BEDTIME HPI AWV HPI Details 63-year-old female with past medical history of breast cancer and lymphoma 2012 in remission, hypercholesterolemia, osteopenia, generalized anxiety disorder last seen she November [address] Santiago coming in for annual wellness exam. In review of the notes, patient completed mammogram 03/25/2024 BI-RADS 2 follow up in 1 year.? Bone density completed 03/27/2024 showing osteopenia.?Patient was seen by Orthopedics January 2024 s/p rotator cuff repair surgery 09/01/2023 advised to continue with physical therapy and follow up in 3 months.? Patient requesting referral to Gynecology for annual Pap smears. Also requesting colonoscopy referral as she has not had 1 in several years. She does have a history of breast cancer and recent mammogram was negative for any concerning lesions however she does continue to have left breast pain that is intermittent. She follows with [facility]iatry [facility] Counseling and finds this helpful. Otherwise has no acute concerns today. [facility] Medical History Right shoulder pain Bilateral shoulder pain Left shoulder pain Preop exam for internal medicine Obesity (BMI 30.0-34.9) Osteopenia Age-related osteoporosis without current pathological fracture Colonoscopy refused History of alcohol abuse Hypercholesterolemia Breast cancer Lymphoma Pituitary lesion Osteoarthritis Insomnia Inflammatory bowel disease Overweight (BMI 25.0-29.9) Anxiety and depression Surgical History History of hysteroscopy Hx of cystoscopy H/O colonoscopy History of bilateral breast reduction surgery History of surgery History of lumpectomy of right breast History of tonsillectomy Family History Father Colon cancer Mother Lymphoma Family/Other Breast cancer Social History Household Members Other:: son Housing: House Are you a primary hospice patient care secretary to a significant other at home: No Do you presently have visiting nurse or other home services: Yes (son is SKATE BOARD[employer]) Alcohol intake: former Patient Tobacco Use Status: Former Tobacco user Tobacco use type: Cigarette Years Smoked: quit 1999 e-Cigarette/Vaping Use: Never Used Second Hand Smoke Exposure: No service: No Current occupational status: disabled Cognitive needs: No Hearing needs: No Vision needs: No Questionnaire Medicare Wellness Checkup What [age] What gender do you identify with?: female During the past 4 weeks, how much have you been bothered by emotional problems such as feeling anxious, depressed, irritable, sad or downhearted, and blue?: moderately During the past 4 weeks, has your physical & emotional health limited your social activities with family, friends, neighbors, or groups?: extremely During the past 4 weeks, how much bodily pain have you generally had?: mild pain During the past 4 weeks, was someone available to help you if you needed & wanted help?: yes, some During the past 4 weeks, what was the hardest physical activity you could do for at least 2 minutes?: light Can you get to places out of walking distance without help? (For eg., can you travel alone on buses, taxis or drive your car?): No Can you go shopping for groceries or clothes without someone's help?: No Can you prepare your own meals?: No Can you do your housework without help?: No Because of any health problems, do you need the help of another person with your personal care needs such as eating, bathing, dressing or getting around the house?: Yes Can you handle your own money without help?: Yes During the past 4 weeks, how would you rate your health in general?: poor During the past 4 weeks how have things been going for you?: pretty bad Are you having difficulties driving your car?: sometimes Do you always fasten your seat belt when you are in a car?: no During past 4 weeks, have you been bothered by the following: seldom: Falling or dizzy when standing up, sometimes: Trouble eating well?, Teeth or denture problems?, Problems using the telephone? and Tiredness or fatigue? and always: Sexual problems? Have you fallen 2 or more times in the past year?: Yes Are you afraid of falling?: Yes Are you a smoker?: no During the past 4 weeks, how many drinks of wine, beer, or other alcoholic beverages did you have?: no alcohol at all Do you exercise for about 20 minutes 3 or more times a week?: no, I usually do not exercise this much Have you been given information to help with the following?: yes: Hazards in your house that might hurt you? and no: Keeping track of your medications? (sometimes) How often do you have trouble taking medicines the way you have been told to take them?: sometimes I take medicine as prescribed How confident are you that you can control & manage most of your health problems?: very confident What is your race?: Black or PHQ-9 Over the last 2 weeks, how often have you been bothered by any of the following problems? 1. Little interest or pleasure in doing things: nearly every day 2. Feeling down, depressed, or hopeless: nearly every day 3. Trouble falling or staying asleep, or sleeping too much: nearly every day 4. Feeling tired or having little energy: nearly every day 5. Poor appetite or overeating: nearly every day 6. Feeling bad about yourself - or that you are a failure or have let yourself or your family down: nearly every day 7. Trouble concentrating on things, such as reading the newspaper or watching television: nearly every day 8. Moving or speaking so slowly that other people could have noticed. Or the opposite - being so fidgety or restless that you have been moving around a lot more than usual: more than half the days 9. Thoughts that you would be better off or of hurting yourself in some way: nearly every day Total score: 26 Depression Screening Interpretation: Positive Depression Screening Done: Yes 93454 - PHQ-9 Billing: Yes Source: Developed by Drs. Jay Aguilera, Roxana Addison, Mikal Clarke and colleagues, with an educational shu from [employer]. Review of Systems Const Denies body aches, Denies fatigue, Denies fever(s), Denies frequent falls, Denies headache(s) and Denies weakness Eyes Reports no additional complaints and Denies change in vision ENT Denies dysphagia, Denies dizziness, Denies facial pain, Denies headache(s), Denies nasal congestion and Denies odynophagia Card Denies chest pain, Denies syncope, Denies irregular heart rhythm, Denies leg edema, Denies lightheadedness and Denies dyspnea Resp Denies cough and Denies dyspnea GI Denies abdominal pain, Denies constipation, Denies dysphagia, Denies dyspepsia, Reports diarrhea (1-x per month), Denies nausea, Denies odynophagia and Denies vomiting Denies urinary frequency, Denies dysuria, Denies urinary hesitancy and Denies urinary urgency Musc Denies back pain and Denies myalgias Skin/Breast Details: Left breast pain without nipple drainage or overlying skin changes Neuro Denies dizziness, Denies syncope, Denies frequent falls, Denies headache(s) and Denies weakness Psych Reports anxiety and Reports depression Endo Denies fatigue Physical Exam Vital Signs: Last Vital Signs Pulse 54 04/15/24 13:51 BP 130/82 04/15/24 13:51 Pulse Ox 97 04/15/24 13:51 Oxygen Delivery Method Room Air 04/15/24 13:51 BMI result Body Mass Index 28.7 Const General: cooperative, healthy appearing, comfortable and no acute distress Orientation/consciousness: patient oriented x3 HEENT Head: Yes normocephalic Ears: hearing grossly normal bilaterally, external ears normal, TM's normal bilaterally and EAC's normal General nose exam: Normal external nose present Face and sinus: Yes normal facial exam and Yes sinuses nontender Mouth: Normal oral and palatal mucosa present and tongue normal Throat: Yes posterior oropharynx normal Eyes General: appearance normal, both eyes and all related structures Conjunctivae: conjunctivae normal Pupils: Equal, round and reactive pupils present EOM: EOMs intact bilaterally and No Nystagmus present Neck Neck: Yes normal visual inspection, Yes full ROM and Yes no lymphadenopathy Chest Chest palpation & inspection: normal inspection of the chest Breast/axilla palpation: normal palpation of the breasts Resp Effort & Inspection: normal respiratory effort Auscultation: clear to auscultation bilaterally, no crackles, no rales, no rhonchi, no wheezes and breath sounds present Cardio Rate: regular rate Rhythm: regular rhythm Peripheral pulses: radial pulses present and dorsalis pedis present GI Inspection: Yes normal to inspection and No Abdominal wall edema Palpation (GI): Soft to palpation, not firm and nontender Auscultation: normal bowel sounds Rectal Exam - Female: deferred General: Yes no CVA tenderness Back/Spine/Pelvis Back: no CVA tenderness Skin General skin exam: no rashes or lesions noted Neuro General: patient oriented x3 Cranial nerves: Yes Equal, round and reactive pupils present, Yes Midline tongue present, Yes Ability to bilaterally elevate shoulders present and No Nystagmus present Cognition (Neuro): normal cognition Gait exam (Neuro): Normal gait present Extrem General: Yes normal to inspection, Yes full ROM, No no pedal edema and No edema Psych Speech and movement: Normal speech and movement present Affect: normal affect Insight: Good insight present (Psych) Judgement: Good judgement present (Psych) Office Procedures Flu Questionnaire Does the patient have a severe egg allergy?: No Does the patient have severe life threatening allergies?: No Does the patient have a fever or illness today?: No Has the patient ever had Guillain-[place] Syndrome?: No Has the patient ever had any past reaction to a flu shot?: No Immunizations Fluarix Triv 7328-3519 (PF) 45 mcg (15 mcg x 3)/0.5 mL IM syringe Performing Provider: Adali Valentine PA-C [facility] Administered by: JORJE Pelaez on 04/15/24 14:14 Dose Route Admin Location Dispensed Lot Number Expiration Date [facility] Case Manager Specialist 0.5 mL IM Left Deltoid 0.5 mL [id number] 12/16/24 [id number] [employer] VIS Given Date VIS Provided VIS Publication Date 04/15/24 Single Vaccine 21 Eligibility Eligibility Date Funding Source Not [facility] Eligible 04/15/24 Private Assessment & Plan Assessment & Plan (1) Breast pain, right: Code(s): N64.4 - Mastodynia Plan: Patient complaining of intermittent right breast pain. No tenderness on exam ordered for breast ultrasound for further evaluation. (2) Generalized anxiety disorder: Comment: [facility]ON[facility] therapist Q week 07/2020 Code(s): F41.1 - Generalized anxiety disorder Plan: Continue to follow with psychiatrist and counselor or [place]. Continue on current medication regimen. (3) Osteopenia: Comment: February 2018, September 2021 Code(s): M85.80 - Other specified disorders of bone density and structure, unspecified site Plan: Currently on alendronate weekly. (4) Overweight (BMI 25.0-29.9): Code(s): E66.3 - Overweight Plan: Healthy diet and regular exercise is encouraged. 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 Lorenz November 2012 Code(s): C85.90 - Non-Hodgkin lymphoma, unspecified, unspecified site Qualifiers: Lymphoma type: non-Hodgkin Non-Hodgkin lymphoma type: B-cell B-cell lymphoma type: diffuse large B-cell Lymphoma site: head Qualified Code(s): C83.31 - Diffuse large B-cell lymphoma, lymph nodes of head, face, and neck Plan: Continue to follow with Oncology. (6) Breast cancer: Comment: Right-w/lumpectomy Code(s): C50.919 - Malignant neoplasm of unspecified site of unspecified female breast Qualifiers: Breast location: unspecified site of breast Estrogen receptor status: unspecified Patient sex: female Laterality: right Qualified Code(s): C50.911 - Malignant neoplasm of unspecified site of right female breast Plan: Continue to follow with Oncology. Ordered for right breast ultrasound for further evaluation of intermittent breast pain. Recent mammogram negative. (7) Hypercholesterolemia: Code(s): E78.00 - Pure hypercholesterolemia, unspecified Plan: Avoid foods that are high in cholesterol such as red meat, fried foods, eggs and baked goods. Triglyceride goal of less than 150 and LDL goal of less than 130. Continue on atorvastatin 10 mg. (8) Annual wellness visit: Code(s): Z00.00 - Encounter for general adult medical examination without abnormal findings Plan: Patient is not up-to-date with all routine screenings for her age. Referral placed for colonoscopy and gynecology for annual Pap smears with the patient's request. Mammogram and bone density are up-to-date. [place] of care was reviewed with patient patient was provided with a written screening schedule. Ordered for additional updated blood work. Flu vaccine given today. Plan This note was constructed using voice recognition software. While every effort has been made to ensure accuracy and yarn tester, still areas may have been included sometimes these areas may affect the content or meeting of the given symptoms. Total time spent caring for the patient today was 30 minutes. This includes time spent before the visit reviewing the chart, time spent during the visit, and time spent after the visit and documentation. Orders: Orders Complete Blood Count Auto Diff Today Z00.00 - Encounter for general adult medical examination without abnormal findings TSH reflex Free T4 Today Z00.00 - Encounter for general adult medical examination without abnormal findings Free T4 (Free Thyroxine) Today Z00.00 - Encounter for general adult medical examination without abnormal findings Vitamin D 25-OH (D2 and D3) Today Z00.00 - Encounter for general adult medical examination without abnormal findings US breast RT complete Today N64.4 - Mastodynia Vitamin B12 and Folate Today Z00.00 - Encounter for general adult medical examination without abnormal findings Influenza [id number] Immunization Today Z23 - Encounter for immunization Referrals Optometry Referral H53.8 - Other visual disturbances Gastroenterology Referral Z12.11 - Encounter for screening for malignant neoplasm of colon RN [facility] Referral Z12.4 - Encounter for screening for malignant neoplasm of cervix Quality Reporting (2020) Depression/Bipolar (159/160/161/177) PHQ-9: Total score: 26 Coding Level of Care Code Medicare Subsequent (G0439) Diagnoses Breast pain, right N64.4 Generalized anxiety disorder F41.1 Osteopenia M85.80 Overweight (BMI 25.0-29.9) E66.3 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 Lymphoma type: non-Hodgkin Non-Hodgkin lymphoma type: B-cell B-cell lymphoma type: diffuse large B-cell Lymphoma site: head Malignant neoplasm of right female breast, unspecified estrogen receptor status, unspecified site of breast C50.911 Breast location: unspecified site of breast Estrogen receptor status: unspecified Patient sex: female Laterality: right Hypercholesterolemia E78.00 Annual wellness visit Z00.00
[2024-04-15 13:51] VITALS: BP 130/82; PULSE 54; O2SAT 97; BMI 28.7
== END 2024-04-15 14:20 | disposition home or self-care (01) ==
LOC: HO.HMCH 13:28
PROVIDERS: PCP Internal Medicine
DX: Z00.00 Encounter for general adult medical examination without abnormal findings (principal); N64.4 Mastodynia; C83.31 Diffuse large B-cell lymphoma, lymph nodes of head, face, and neck; C50.911 Malignant neoplasm of unspecified site of right female breast; F41.1 Generalized anxiety disorder; M85.80 Other specified disorders of bone density and structure, unspecified site; E66.3 Overweight; E78.00 Pure hypercholesterolemia, unspecified

== ENCOUNTER → 2024-04-15 13:28 | Outpatient (BNVA) | payer MEDICARE, MEDICAID, SELFPAY | PROVIDERS: PCP Internal Medicine | DX: Z00.00 Encounter for general adult medical examination without abnormal findings (principal); Z23 Encounter for immunization; N64.4 Mastodynia; F41.1 Generalized anxiety disorder; M85.80 Other specified disorders of bone density and structure, unspecified site; E66.3 Overweight; C83.31 Diffuse large B-cell lymphoma, lymph nodes of head, face, and neck; E78.00 Pure hypercholesterolemia, unspecified | CPT/HCPCS: 90471; 90656 ==

== ENCOUNTER 2024-04-18 09:57 | Outpatient (REF) | payer MEDICARE, MEDICAID, SELFPAY ==
[2024-04-18 10:28] LABS: MANUAL DIFF FLAG NO
[2024-04-18 10:42] LABS: Basophils Absolute Auto 0.1 X10*3/uL (0.0-0.2); Basophils Percent Auto 0.8 % (0-2); Eosinophils Absolute Auto 0.3 X10*3/uL (0.0-0.4); Eosinophils Percent Auto 3.9 % (0-4); Hematocrit 40.7 % (37.0-47.0); Hemoglobin 13.2 g/dl (12.0-16.0); Imm Gran Abs Auto 0.02 X10*3/uL (0.00-0.03); Imm Gran Pct Auto 0.3 % (0.0-0.4); Lymphocytes Absolute Auto 2.1 X10*3/uL (1.2-4.9); Lymphocytes Percent Auto 33.3 % (20-40); Mean Corpuscular HGB Conc 32.4 g/dl (31.0-35.0); Mean Corpuscular Hemoglobin 28.8 pg (27.0-33.0); Mean Corpuscular Volume 88.9 fL (80.0-98.0); Mean Platelet Volume 10.1 fL (9.4-12.3); Monocytes Absolute Auto 0.6 X10*3/uL (0.1-1.2); Monocytes Percent Auto 8.8 % (2-11); Neutrophils Absolute Auto 3.4 x10*3/uL (2.0-8.3); Neutrophils Percent Auto 52.9 % (45-73); Platelet Count 275 X10*3/uL (160-400); Red Blood Count 4.58 X10*6/uL (4.20-5.50); White Blood Count 6.4 X10*3/uL (4.8-10.8)
[2024-04-18 11:30] LABS: Free T4 (Free Thyroxine) 0.76 ng/dL (0.71-1.85); TSH reflex Free T4 2.46 uIU/mL (0.32-4.0)
[2024-04-18 11:44] LABS: Folate > 20.0 ng/mL (> or = 4.0); Vitamin B12 1087 pg/mL (200-900)
[2024-04-22 22:12] LABS: Vitamin D 25-OH, D2 <4 ng/mL; Vitamin D 25-OH, D3 62 ng/mL; Vitamin D 25-OH, Total 62 ng/mL (30-100)
== END 2024-04-18 09:58 | disposition home or self-care (01) ==
LOC: HO.LAB 09:57
PROVIDERS: PCP Internal Medicine
DX: Z00.00 Encounter for general adult medical examination without abnormal findings (principal)
CPT/HCPCS: 36415; 82306; 82607; 82746; 84439; 84443; 85025

== ENCOUNTER 2024-05-01 09:40 | Outpatient (REF) | payer MEDICARE, MEDICAID, SELFPAY ==
--- NOTE | ~2024-05-01 | US_ITS ---
EXAMINATION: US DIAGNOSTIC ULTRASOUND BREAST, RIGHT CLINICAL INFORMATION: 53-year-old female complaining of right breast pain superior aspect x1.5 months. No history of injury or other significant history. COMPARISON: No prior available. Correlation made with bilateral screening mammography dated 03/13/2024 (BI-RADS 2). TECHNIQUE: Ultrasound of the right breast is performed with real-time dove scale imaging and color Doppler. Right breast was examined from the 8:00 to the 3:00 axis to include the area of breast pain. FINDINGS: There is no focal suspicious finding. There is no solid mass, architectural abnormality, cystic abnormality, abnormal shadowing, or edema in the soft tissue planes. Only normal fibrofatty parenchyma is identified in the right breast. US/US breast RT limited mamm only IMPRESSION: 1. No findings suspicious for malignancy right breast. 2. No ultrasound correlate identified for superior right breast pain. Recommend clinical management and follow-up. 3. Otherwise, recommend the patient return to routine annual screening. ASSESSMENT: BI-RADS 1: Negative RECOMMENDATION: 1. Patient should be managed based on the clinical impression. 2. Otherwise, routine annual screening mammography. This patient's information was entered into a reminder system with a target due date for their next mammogram. Electronically signed by: Nicola Hennessy MD 05/28/2024 02:29 PM [facility] ALEXANDRE
== END 2024-05-01 09:41 | disposition home or self-care (01) ==
LOC: HO.MAMMO 09:40
DX: N64.4 Mastodynia (principal)
CPT/HCPCS: 76642

== ENCOUNTER → 2024-05-01 11:00 | Outpatient (BNV) | payer MEDICARE, MEDICAID, SELFPAY | PROVIDERS: Visit Provider Radiology Diagnostic Radiology | DX: N64.4 Mastodynia (principal) | CPT/HCPCS: 76642 ==

== ENCOUNTER 2024-10-09 08:52 | Outpatient (AMB) | payer MEDICARE, MEDICAID, SELFPAY ==
[2024-10-09 08:54] VITALS: BP 116/70; BMI 28.9
--- NOTE | 2024-10-09 08:54 | A.OFFVIS_ITS ---
Vital Signs 10/09/24 08:54 Height 5 ft 8 in Weight 190 lb BMI 28.9 BP 116/70 Intake Visit Reasons: HEAD OF SCIENCE Annual/DO NOT R/S Intake Note: Last pap does not remember normal history per pt Health Support Specialist: Health Support Specialist Present (Heidi) Allergies No Known Allergies Allergy (Verified 10/09/24 08:54) HPI Comments Details: She is a postmenopausal woman presenting for her new patient annual product builder examination. She is doing well with product builder concerns. Prone to yeast infections and odor. Has douched with vinegar and used Boric acid tablet. Currently not sexually active. Attempting to eat a healthy diet with calcium and vitamin D and stays active with exercise. History of osteopenia. Last pap smear; many years ago. Last mammogram; 2023. Colonoscopy declined. [facility] Medical History Right shoulder pain Bilateral shoulder pain Left shoulder pain Preop exam for internal medicine Obesity (BMI 30.0-34.9) Osteopenia Age-related osteoporosis without current pathological fracture Colonoscopy refused History of alcohol abuse Hypercholesterolemia Breast cancer Lymphoma Pituitary lesion Osteoarthritis Insomnia Inflammatory bowel disease Overweight (BMI 25.0-29.9) Anxiety and depression Surgical History History of hysteroscopy Hx of cystoscopy H/O colonoscopy History of bilateral breast reduction surgery History of surgery History of lumpectomy of right breast History of tonsillectomy Family History Father Colon cancer Mother Lymphoma Family/Other Breast cancer Sister Ovarian cancer Social History Household Members Other:: son Housing: House Are you a primary customer care voice consultant to a significant other at home: No Do you presently have visiting nurse or other home services: Yes (son is [employer]PERVIS[employer]) Alcohol intake: former Patient Tobacco Use Status: Former Tobacco user Tobacco use type: Cigarette Years Smoked: quit 1999 e-Cigarette/Vaping Use: Never Used Second Hand Smoke Exposure: No service: No Current occupational status: disabled Cognitive needs: No Hearing needs: No Vision needs: No Female Reproductive History Menstrual Total pregnancies: 1 Full term: 1 Number of Living Children: 1 Date of Mammogram: 03/13/24 (Birad 2) Date of last Bone Density Screenin03/13/24 Review of Systems Const All systems reviewed & are unremarkable except as noted in HPI and below Reports as per HPI Eyes Reports no additional complaints ENT Reports no additional complaints Card Reports no additional complaints Resp Reports no additional complaints GI Reports as per HPI and Reports no additional complaints Reports as per HPI Musc Reports no additional complaints Skin/Breast Reports as per HPI Neuro Reports no additional complaints Psych Reports no additional complaints Endo Reports no additional complaints Russell/Lymph Reports no additional complaints Aller/Immun Reports no additional complaints Physical Exam Vital Signs: Last Vital Signs BP 116/70 10/09/24 08:54 BMI result Body Mass Index 28.9 Const General: cooperative, healthy appearing, no acute distress, well developed and alert Orientation/consciousness: patient oriented x3 HEENT Head: Yes normal to inspection Eyes General: appearance normal, both eyes and all related structures Neck Neck: Yes normal visual inspection Thyroid: Thyroid normal Chest Other: surgical scarring Chest palpation & inspection: normal inspection of the chest and other (no puckering, dimpling, peau de orange, retraction, discharge, masses) Breast/axilla inspection: normal inspection of the breasts Breast/axilla palpation: normal palpation of the breasts Resp Effort & Inspection: normal respiratory effort GI Inspection: Yes normal to inspection Palpation (GI): Soft to palpation Rectal Exam - Female: deferred General: Yes bladder normal to palpation External Female Exam: normal external appearance and normal appearance of the urethra Speculum Exam - Vagina: normal appearance of the vagina, normal palpation, normal vaginal discharge, vagina atrophic and other (2 area's of bruising noted at 6:00 on cervix, 8:00 vaginal ) Speculum Exam - Cervix: normal appearance of the cervix and normal palpation Bimanual exam- vagina & uterus: normal bimanual exam, normal palpation, uterine size normal, bladder normal to palpation, normal palpation and non-tender Bimanual Exam- Adnexa, other: no masses Skin General skin exam: no rashes or lesions noted Rashes: no rashes Neuro General: patient oriented x3 Cognition (Neuro): normal cognition Extrem General: Yes normal to inspection Psych Attitude: cooperative Thought process: Normal thought process present Assessment & Plan Assessment & Plan (1) Encounter for well woman exam with routine gynecological exam: Code(s): Z01.419 - Encounter for gynecological examination (general) (routine) without abnormal findings Category: Medical Plan: Discussed: Current recommendations for pap smears per ASCCP guidelines. Breast awareness, periodic self breast exams and yearly mammogram. Maintain a healthy lifestyle, well balanced diet including Calcium 1,200 mg and Vitamin D 600 IU daily, and routine exercise. Calcium handout food list and exercise information provided. Contact the office with any postmenopausal bleeding. Patient verbalizes understanding and agrees to the plan of care. She was given opportunity to ask questions and all questions were answered to the best of my ability. RTO in 1 year for annual product builder exam. This note is constructed using voice recognition software. While every effort has been made to ensure accuracy, jet blade polisher errors may have been included. (2) Vaginal odor: Code(s): N89.8 - Other specified noninflammatory disorders of vagina Plan Advised to not douche with siding mechanic due to avoid mucosa trauma. Boric acid protocal reviewed and encouraged Women's Probiotic oral use, and healthy foods to promote good gut biome. BV panel obtained await results for plan of care. Reviewed nature of chronic BV. The patient expressed understanding and agreement with the plan of care. All of her questions and concerns were addressed to the best of my ability. Total time I personally spent on visit and management today: ?10 minutes. Time spent included review of pertinent office notes in the electronic health record; review of laboratory and imaging results; review of personal family medical history; performing physical exam; discussing diagnosis and plan of care with the patient; documenting the encounter in the EMR. Orders: Orders Bacterial Vaginosis Panel Today N89.8 - Other specified noninflammatory disorders of vagina HPV High risk Today Z01.419 - Encounter for gynecological examination (general) (routine) without abnormal findings Pap Smear Today Z01.419 - Encounter for gynecological examination (general) (routine) without abnormal findings Coding Level of Care Code New Pt Level 2 (50928) New Pt Prev Care >65yr (08100) Diagnoses Encounter for well woman exam with routine gynecological exam Z01.419 Vaginal odor N89.8
--- OUTSIDE RECORDS SUMMARY | 2024-10-09 09:30 | XMS_ITS | Patient Health Record ---
Author Organization [facility] Address [address] [place] [address] Care Team Providers Care Manager Commercial Real Estate Name Role Phone ARACELIS HSIEH M.D.[facility] Primary Care Provider Unavaila Vania Carreon Unavailable [phone] Reason For Referral No Information Plan Of Treatment No Information Insurance Providers Payer Name Payer Address Payer Phone Subscriber Number Group Number Insured Name Patient Relationship to Insured Coverage Start Date Coverage End Date [facility] [address] [address] [place] [address] [id number] MELVI NEGRETE Self - patient is the insured
--- OUTSIDE RECORDS SUMMARY | 2024-10-09 09:30 | XMS_ITS | Patient Health Record ---
Author Organization [facility] Address [address] [place] [address] Care Team Providers Care Office Director Name Role Phone HENOK CHANDLER Unavailable [phone] ALLERGIES No Known Allergies REASON FOR REFERRAL No Information MEDICATIONS Medication SIG (Take, Route, Frequency, Duration) Notes Start Date End Date Status Balsalazide Disodium 750 MG Oral for 90 Active ALPRAZolam 0.25 MG Oral for 30 Active Lidocaine 5 % External for 90 Active Sertraline HCl 100 MG Oral for 90 Active busPIRone HCl 5 MG Oral for 90 Active Zolpidem Tartrate 10 MG Oral for 90 Active Mirtazapine 15 MG Oral for 90 Active oxyCODONE-Acetaminophen 5-325 MG Oral for 30 Active Phentermine HCl 15 MG 1 capsule Orally O nce a day for 30 days Active Topamax 25 MG 1 tablet Orally Once a day for 90 days Active Alendronate Sodium 70 MG Oral for 84 Active SOCIAL HISTORY Tobacco Use: Social History Observation Description Date Details (start date - stop date) Never Smoker NA - NA Sex Assigned At : Social History Observation Description Sex Assigned At Unknown Tobacco Use/Smoking Question Answer Notes Are you a nonsmoker PROBLEMS Problem Type ICD Code Onset Dates Problem Status W/U Status Risk SNOMED Code Notes Problem Other obesity due to excess calories (E66.09) Active confirmed 542864823 Problem Age-related osteoporosis without current pathological fracture (M81.0) Active confirmed 26639193 Problem Anxiety (F41.9) Active confirmed 970336 02 Problem Body mass index [BMI] 33.0-33.9, adult (Z68.33) Active confirmed 053577937 Problem BMI 31.0-31.9,adult (Z68.31) Active confirmed 368537331 PLAN OF TREATMENT No Information Insurance Providers Payer Name Payer Address Payer Phone Subscriber Number Group Number Insured Name Patient Relationship to Insured Coverage Start Date Coverage End Date Medicare Part B J14 [address] [place] [address] [id number] Jackeline Matthew Self - patient is the insured 0 MEDICAL (GENERAL) HISTORY Medical History History ICD Code cancer headache Arthritis anxiety depression lymphoma Surgical History Surgery Date(Month/Year) Lymphoma removed Hospitalization History Reason Date(Month/Year) Cancer
--- OUTSIDE RECORDS SUMMARY | 2024-10-09 09:30 | XMS_ITS ---
Author Organization Jay Lorenz III, MD Address [address] [place] [address] Care Team Providers Care Senior Manager Creative Services Name Role Phone Liliya Santiago MD Primary Care Provider Jay Jimenez Unavailable [phone] REASON FOR VISIT Needs call back from Social History Sex Assigned At : Social History Observation Description Sex Assigned At Female Encounters Encounter Location Date Provider Diagnosis Jay Lorenz III, MD [address] [place] [address] [place] [address] 01/24/2024 Jay Lorenz Plan Of Treatment Next Appt Details Provider Name:Jay Lorenz, 10/11/2024 10:30:00 AM, [address] [place] [address] [place], [address], Progress Notes * Lorna MATTHEWaDOB:1960 (63 yo F)Acc No.[id number]:01/24/2024 Patient:?Jackeline Matthew :1960???Age:63 Y???Sex:Female Address:[address] [place] [address] * true * Date:? Generated for Printi ng/Faxing/eTransmitting on:?10/09/2024 09:29 AM EDT
--- OUTSIDE RECORDS SUMMARY | 2024-10-09 09:30 | XMS_ITS | Patient Health Record ---
Author Organization [facility] Address [address] [place] [address] Care Team Providers Care Pile Fabric Knitter Name Role Phone Po Vito PAN Primary Care Provider Jay Marks Unavailable [phone] Reason For Referral No Information Medications Medication SIG (Take, Route, Frequency, Duration) Notes Start Date End Date Status Promethazine HCl Act aquilino Baclofen Active traZODone HCl Active Mesalamine 1000 MG 1 suppository Rectal BID--QAM and QHS for 30 day(s) Not using nightly--3-4 times per week 09/23/2015 Active Omeprazole 20 MG 1 capsule Orally Once a day for 90 days 01/13/2017 Active Multi Vitamin/Minerals Active Mesalamine 1000 MG 1 suppository at bedtime Rectal QHS for 90 days 01/13/2017 Active Mesalamine 1000 MG 1 suppository at bedtime Rectal QHS for 30 day(s) 09/11/2019 Active Balsalazide Disodium 750 MG TAKE 3 CAPSULES BY MOUTH 3 TIMES A DAY 90 for 90 Active Canasa 1000 MG _insert 1 SUPPOSITORY RECTALLY AT BEDTIME for 30 Active ALPRAZolam Active [facility] Naproxen Sodium Not-Taking Sertraline HCl Activ e Omeprazole 20 MG 1 capsule Orally Once a day for 30 day(s) 10/14/2015 Not-Taking oxyCODONE-Acetaminoph en Active Zolpidem Tartrate Ac tive Lialda 1.2 GM 4 tablets Orally QD-take all 4 tablets at the same time each morning for 30 Not-Taking Diclofenac Sodium BID--only prn Active Citalopram & Diet Manage Prod Not-Taking Alendronate Sodium A ctive Problems Problem Type SNOMED Code ICD Code Onset Dates Problem Status W/U Status Risk Notes Problem 82336243 Diarrhea (R19.7) Active confirmed Problem 458807474 Gastroesophageal reflux disease, esophagitis presence not specified (K21.9) Active confirmed Problem 81353966 Ulcerative proctitis, 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) Active confirmed Plan Of Treatment Pending Test Test Name Order Date LIVER PROFILE 09/23/2015 CRP 09/23/2015 CBC with MANUAL DIFFERENTIAL 09/23/2015 SED RATE (ESR) 09/23/2015 CLOSTRIDIUM DIFF TOXIN A&B (C DIFF) 11/2015 STOOL WBC 09/23/2015 OVA & PARASITES (O&P) 09/23/2015 CULTURE, STOOL 09/23/2015 Future Test Test Name Order Date COLONOSCOPY 05/08/2014 Next Appt Details Provider Name:Jay Duarte , 11/14/2024 10:20:00 AM, [address] [place] [address], [address], [place], [address], Insurance Providers Payer Name Payer Address Payer Phone Subscriber Number Group Number Insured Name Patient Relationship to Insured Coverage Start Date Coverage End Date MEDICARE OF [place] [address] [place] [id number] [id number] MELVI NEGRETE Self - patient is the insured [facility] [address] [place] [address] [id number] CADENMELVI Self - patient is the insured Medical (General) History Medical History History ICD Code Distal ulcerative proctitis- diagnosed with colonoscopy 06-05-2008--there were no polyps Breast cancer-see below Denies IA,DM,CVA,Lung disease,renal dise ase Depression Tendonitis bilateral shoulders 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 Sethi--sees Dr. Lorenz--chemo and XRT Pituitary tumor--being followed by Dr. Arnaldo weston and Dr. Santiago, and Dr. Ortega Surgical History Surgery Date(Month/Year) Breast reduction Right breast ca. 2005 found incidentally during her breast reduction surgery, and treated with 5 years of tamoxifen Tonsillectomy Scalp lesion with lymphoma as above
--- OUTSIDE RECORDS SUMMARY | 2024-10-09 09:30 | XMS_ITS ---
Author Organization Jay Lorenz III, MD Address [address] [place] [address] Care Team Providers Care Booth Manager Name Role Phone Liliya Hsieh MD Primary Care Provider Jay Jimenez [facility] [phone] REASON FOR VISIT follow up Social History Sex Assigned At : Social History Observation Description Sex Assigned At Female Encounters Encounter Location Date Provider Diagnosis Jay Lorenz III, MD [address] [place] [address] [place] [address] 08/14/2024 Jay Lorenz Plan Of Treatment Next Appt Details Provider Name:Jay Lorenz, 10/11/2024 10:30:00 AM, [address] [place] [address] [place], [address], Progress Notes * Lorna NEGRETEaDOB:1960 (63 yo F)Acc No.[id number]:08/14/2024 Progress Notes Patient:?Jackeline NEGRETE Provider:?Jay Lorenz MD :1960???Age:63 Y???Sex:Female D ate:08/14/2024 Address:[address] [place], [place] [phone] Pcp:Liliya Hsieh MD Subjective: * Chief Complaints: * ???1. Follow up. * Medical History:? Objective: * Vitals:? Assessment: Plan: * Treatment: * Images: * The named appointment provid er may or may not be the originator of this progress note, and it is not deemed complete until electronically signed by the appointment provider. Sign off status: Pending * Provider:?Jay Lorenz MD Date:?07/21 Generated for John blackwood/Lavell/Demetri on:?10/09/2024 09:30 AM EDT
--- OUTSIDE RECORDS SUMMARY | 2024-10-09 09:30 | XMS_ITS | Patient Health Record ---
Author Organization Jay Lorenz III, MD Address [address] [facility] [place] [address] Care Team Providers Care Dry Clipper Tender Name Role Phone Liliya Hsieh MD Primary Care Provider Jay Jimenez [phone] Allergies Allergen (clinical drug ingredient) Drug/Non Drug Allergy documented on EMR Reaction Allergy Type Onset Date Status No Known Drug Allergy Unknown Drug Allergy Active Reason For Referral No Information Medications Medication [...] Additional Findings: Tobacco Non-User Ex-cigaret te smoker Problems Problem Type SNOMED Code ICD Code Onset Dates Problem Status W/U Status Risk Notes Problem 4494399 Former smoker (Z87.891) Active confirmed She is not currently smoking and seems motivated not to smoke. I have discussed with her several strategies for maintenance of abstinence in times of stress and illness. Problem 280731252 Overweight (BMI 25.0-29.9) (E66.3) Active confirmed Her body mass index is 29. She has recently lost weight and is no longer obese. We reviewed her diet and nutrition. I recommended continued weight loss until the body mass index is in the normal range. Problem 56538329 Depression (F32.9) Active confirmed Her chronic depression is stable and not worse. She will continue her current regimen. Problem Diffuse large B- cell lymphoma, lymph nodes of head, face, and neck (C83.31) Active confirmed There is n o sign of recurrent malignancy on today's examination. She is cleared for right shoulder surgery from an oncology point of view. Problem 832379940 Hyperprolactinem ia (E22.1) Active confirmed The prolactin level is now 14, in the normal range. Problem 211952115 Pituitary tumor (D49.7) Active confirmed She has no symptoms and her prolactin level is in the normal range. Observation will continue.She is cleared for orthopedic surgery. Problem 02800433 Uterine fibroid (D25.9) Active confirmed She had no new complaints about uterine fibroids today. She is under the care of [facility]PER and primary care. Problem 21455803 Chronic colitis (K52.9) Active confirmed She says is probably stable and she has occasional diarrhea but is not impaired in the activities of daily living. Problem 168113582 Lobular carcinom a in situ (D05.00) Active confirmed There is no sign of recurrent malignancy today and she is cleared for surgery from an oncology point of view. Encounters Encounter Location Date Provider Diagnosis Jay Lorenz III, MD [address] [place] [address] [address] [place] [address] 01/24/2024 Jay Lorenz Plan Of Treatment Pending Test Test Name Order Date PROFILE, FASTING (COMPREHENSIVE METABOLI C) 07/24/2023 PROFILE, RANDOM (COMPREHENSIVE METABOLIC ) 03/01/2023 PROFILE, RANDOM (COMPREHENSIVE METABOLIC ) 02/25/2022 PROFILE, RANDOM (COMPREHENSIVE METABOLIC ) 01/19/2022 LDH 07/24/2023 LDH 02/25/2022 CBC w DIFF 03/01/2023 CBC w DIFF 02/25/2022 CBC w DIFF 01/19/2022 SED RATE (ESR) 07/24/2023 SED RATE (ESR) 03/01/2023 PROLACTIN 02/25/2022 PROLACTIN 01/19/2022 MRI BRAIN W&WO CONTRAST 01/19/2022 MRI BRAIN W&WO CONTRAST 02/03/2017 MRI BRAIN W&WO CONTRAST 03/13/2019 MAMMOGRAM DIGITAL BILATERAL SCREEN 08/29 CBC WITH AUTO DIFF 07/24/2023 Lipid Panel 07/24/2023 Microalbumin, Random 07/24/2023 Hemoglobin A1c 07/24/2023 Next Appt Details Provider Name:Jay Kelechi, 10/11/2024 10:30:00 AM, [address], [place], [address], Insurance Providers Payer Name Payer Address Payer Phone Subscriber Number Group Number Insured Name Patient Relationship to Insured Coverage Start Date Coverage End Date MEDICARE [place] [address] [place] [address] [id number] Jackeline Matthew Self - patient is the insured MEDICAID [place] [address] [place], [place] [id number] Jackeline Matthew Self - patient is the insured Medical (General) History Medical History History ICD Code lobular carcinoma in situ by biospy l , at [facility] active chronic colitis by re ctal biospy by Dr. Jay Duarte on May history of rectal fistula in the past reduction mammoplasty September 2004 depression macromastia chronic active colitis 2007 diverticulosis hemorrhoids proctitis 2007 with bleeding cutaneous sinus, excised, right thigh uterine fibroids lymphocytosis elevated prolactin level March 30 4 35.7(2.8-26.7) last mammogram 07/10/2012 Surgical History Surgery Date(Month/Year) biopsy vertex of the skull 2012 negative cystoscopy for bladder pain 2011 excision sinus right thigh colonoscopy 2007 tonsillectomy reduction mammoplasty 09/2004
--- OUTSIDE RECORDS SUMMARY | 2024-10-09 09:30 | XMS_ITS ---
Author Organization Jay Lorenz III, MD Address [address] [place] [address] Care Team Providers Care Infrastructure Solutions Architect Name Role Phone Po Liliya PAN Primary Care Provider Jay Jimenez [phone] Allergies Allergen (clinical drug ingredient) Drug/Non Drug [...] Date Provider Diagnosis Jay Lorenz III, MD [address] [place] [address] [place] [address] 09/09/2024 Jay Lorenz Plan Of Treatment Medication [...] TABLET BY QUINTON TH EVERY DAY Oral Zolpidem Tartrate 10 MG Oral P RN Next Appt Details Provider Name:Jay Cuellone, 10/11/2024 10:30:00 AM, [address] [place] [address] , [place] [address], [place], [address], Progress Notes * Lorna MATTHEWArieB:1960 (63 yo F)Acc No.[id number]:09/09/2024 Progress Notes Patient:?Jackeline MATTHEW Provider:?Jay Lorenz MD :1960???Age:63 Y???Sex:Female D ate:09/09/2024 Address:[address] [place], [place] [phone] Pcp:Liliya Hsieh MD Subjective: * Chief Complaints: * ???1. Follow up. * HPI: ???COVID-19 Screening:?Questions?Have you had any new onset fever, chills, cough, congestion, sore throat, shortness of breath, muscle aches??No * ROS:?General/Constitutional:?pain?only normal aches and pains.?Chills?denies.?Fatigue?admits.?Fever?denies.?ENT:?Decreased hearing?denies.?Respiratory:?Cough?denies.?Cardiovascular:?Chest pain with exertion?denies.?Dyspnea on exertion?denies.?Shortness of breath?denies.?Gastrointestinal:?Constipation?denies.?Decreased appetite?denies.?Diarrhea?denies.?Heartburn?denies.?Nausea?denies.?Rectal bleeding?denies.?Vomiting?denies.?Hematology:?bruising?denies.?petechiae?denies.?Swollen glands?none have been noted.?Genitourinary:?Frequent urination?denies.?Musculoskeletal:?Muscle aches?denies.?Painful joints?denies.?Sciatica?denies.?Weakness?denies.?Skin:?Itching?denies.?Rash?denies.?Skin lesion(s)?denies.?Neurologic:?Difficulty speaking?denies.?Dizziness?denies.?Headache?denies.?Low back pain?denies.?Psychiatric:?Depressed mood?denies.? * Medical History:?lobular car cinoma in situ by biospy September, at [facility], active chronic colitis by rectal biospy by Dr. Jay Duarte on May, History of rectal fistula in the past, reduction mammoplasty September 2004, Depression, Macromastia, Chronic active colitis 2007, Diverticulosis, Hemorrhoids, Proctitis 2007 with bleeding, Cutaneous sinus, excised, right thigh, Uterine fibroids, Lymphocytosis, elevated prolactin level March 30, 2004 35.7(2.8-26.7), Last mammogram 07/10/2012. * Surgical History:?reduction mammoplasty 09/2004, tonsillectomy , colonoscopy 2007, excision sinus right thigh , negative cystoscopy for bladder pain 05/2012, biopsy vertex of the skull 2012. * Hospitalization/Major Diagno stic Procedure:?Denies Past Hospitalization. * Family History:?Father: dece ased, Colon cancer 1970, diagnosed with Cancer.?Mother: 92 yrs, tia, lymphoma.?7 brother(s) , 1 sister(s) . .? Her father had colon cancer. Her mother has a history of TIA and stroke. Her mother has a history of lymphoma. Sister had a heart attack. * Social History:?Tobacco Use:?Tobacco Use/Smoking?Patient is a?former smoker ?How long has it been since you last smoked??> 10 years ?Additional Findings: Tobacco Non-User?Ex-cigarette smoker ???She was born in [place]. She is single. She has one son. 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 She does not drink or smoke. * Medications:?Taking buPROPio n HCl 100 MG Tablet Oral , Taking [...] reviewed and reconciled with the patient * Allergies:?No Known Drug All ergy. Objective: * Vitals:? * Examination: ???General Examination: ?GENERAL APPEARANCE:?pleasant, well nourished, well developed, in no acute distress, calm and relaxed.?HEAD:?atraumatic, normocephalic.?EYES:?eomi, perrla, anicteric, conjugate.?EARS:?normal.?NOSE:?septum intact.?ORAL CAVITY:?normal, unremarkable.?NECK/THYROID:?no jugular venous distention, no carotid bruit, thyroid normal.?LYMPH NODES:?no enlarged lymph nodes,spleen normal.?SKIN:?no suspicious lesions, anicteric.?HEART:?no clicks, gallops, murmurs, or rubs, regular rhythm, S1, S2 normal, no s3, or vascular bruits.?LUNGS:?clear to auscultation .?BREASTS:??no masses palpable bilaterally.?ABDOMEN:?bowel sounds normal, no ascites, no organomegaly, no mass.?RECTAL EXAM:?not examined.?MUSCULOSKELETAL:?extremities unremarkable, no clubbing, cyanosis or edema.?PERIPHERAL PULSES:?normal.?NEUROLOGIC:?alert and oriented, cranial nerves 2-12 grossly intact, deep tendon reflexes 2+ symmetrical, motor strength normal upper and lower extremities, sensory exam intact.?PSYCH:?alert, oriented.? Assessment: Plan: * Treatment: * Images: * The named appointment provid er may or may not be the originator of this progress note, and it is not deemed complete until electronically signed by the appointment provider. Sign off status: Pending * Provider:?Jay Lorenz MD Date:?08/18 Generated for John blackwood/Lavell/eTransmitting on:?10/09/2024 09:29 AM EDT History and Physical Notes * [...]
== END 2024-10-09 11:17 | disposition home or self-care (01) ==
LOC: HO.HWS 08:53
PROVIDERS: Visit Provider Advanced Practice Midwife
DX: N89.8 Other specified noninflammatory disorders of vagina (principal); Z01.419 Encounter for gynecological examination (general) (routine) without abnormal findings
CPT/HCPCS: 99202; 99459; G0101

== ENCOUNTER 2024-10-09 08:52 | Outpatient (REF) | payer MEDICARE, MEDICAID, SELFPAY ==
[2024-10-09 21:46] LABS: Bacterial Vaginosis PCR NEGATIVE (Negative); Candida Group PCR NOT DETECTED (Not Detect); Candida glab krusei PCR NOT DETECTED (Not Detect); Trichomonas vaginalis PCR NOT DETECTED (Not Detect)
== END 2024-10-09 08:53 | disposition home or self-care (01) ==
LOC: HO.LAB 08:52
PROVIDERS: Visit Provider Advanced Practice Midwife
DX: Z13.89 Encounter for screening for other disorder (principal)
CPT/HCPCS: 81515; 99202; 99459; G0101

== ENCOUNTER 2024-10-09 09:30 | Outpatient (REF) | payer MEDICARE, MEDICAID, SELFPAY ==
[2024-10-15 14:58] LABS: HPV Genotype 16 Negative (Negative); HPV Genotype 18 Negative (Negative); HPV High Risk Negative (Negative)
== END 2024-10-09 09:31 | disposition home or self-care (01) ==
LOC: HO.LNP 09:30
PROVIDERS: Visit Provider Advanced Practice Midwife
DX: Z01.419 Encounter for gynecological examination (general) (routine) without abnormal findings (principal); N89.8 Other specified noninflammatory disorders of vagina
CPT/HCPCS: 81515; 87626; 88175; 99202; 99459; G0101

== ENCOUNTER 2024-10-14 10:12 | Outpatient (AMB) | payer MEDICARE, MEDICAID, SELFPAY ==
--- NOTE | 2024-10-14 10:21 | A.OFFPC_ITS ---
Vital Signs 10/14/24 10:22 Height 5 ft 8 in Weight 190 lb 2 oz BMI 28.9 BP 126/60 Blood Pressure Location Rt brachial Position Sitting Pulse 67 Pulse Source Pulse Oximeter Temp 97.3 F Temp Source Temporal Artery Scan Pulse Oximetry (%) 99 Oxygen Delivery Method Room Air Intake Visit Reasons: f/u cholesterol Intake Note: Patient is here to follow up on Cholesterol. Surgical Processor Required: No Chief Crna: Not Required per policy Accompanied by: Self / Same As Patient Allergies No Known Allergies Allergy (Verified 10/14/24 10:52) Medication List - Last Reconciled 10/14/24 by Adali Valentine PA-C alendronate 70 mg PO QWEEK alprazolam 0.25 mg (1/2 x 0.5 mg) PO BID-TID PRN 30 days atorvastatin 10 mg PO DAILY buspirone 15 mg PO BEDTIME cholecalciferol (vitamin D3) (Vitamin D3) 25 mcg PO DAILY diclofenac sodium 3% 1 appl topical BID lactobacillus comb no.10 (Probiotic) 20,000 mmu cells PO DAILY lidocaine 5% (Lidoderm) 2 patches topical DAILY multivitamin 1 tab PO DAILY sertraline 150 mg (1.5 x 100 mg) PO DAILY 90 days zolpidem 10 mg PO BEDTIME Tobacco use date assessed: 10/14/24 Fall risk assessment: No Falls in past year Last assessed Fall Risk: 10/14/24 Dental Screening Dental Screen Date: 10/14/24 Did you have a dental visit in the last 12 months?: Yes Did you have a dental problem in the last 6 months where you did not have access to dental care?: No Was dental information given to patient?: Patient has dentist HPI f/u cholesterol HPI Details 63-year-old female with past medical his tory of breast cancer and lymphoma 2012 in remission, hypercholesterolemia, osteopenia, generalized anxiety disorder last seen 03/2024 coming in for follow up. Presenting for follow-up on hyperlipidemia. She experiences postprandial congestion and burning, suggesting gastroesophageal reflux disease, which has been a concern that atorvastatin modification would not address. Her interest in using Wegovy for weight management was met with the information that her BMI of 28.9 is below the insurance-covered threshold. She previously reported breast pain, which has resolved; her recent ultrasound was benign, and she maintains regular oncology appointments. PFSH Medical History Right shoulder pain Bilateral shoulder pain Left shoulder pain Preop exam for internal medicine Obesity (BMI 30.0-34.9) Osteopenia Age-related osteoporosis without current pathological fracture Colonoscopy refused History of alcohol abuse Hypercholesterolemia Breast cancer Lymphoma Pituitary lesion Osteoarthritis Insomnia Inflammatory bowel disease Overweight (BMI 25.0-29.9) Anxiety and depression Surgical History History of hysteroscopy Hx of cystoscopy H/O colonoscopy History of bilateral breast reduction surgery History of surgery History of lumpectomy of right breast History of tonsillectomy Family History Father Colon cancer Mother Lymphoma Family/Other Breast cancer Sister Ovarian cancer Social History Household Members Other:: son Housing: House Are you a primary career education teacher to a significant other at home: No Do you presently have visiting nurse or other home services: Yes (son is PROPERTY DISPOSAL MANAGER) Alcohol intake: former Patient Tobacco Use Status: Former Tobacco user Tobacco use type: Cigarette Years Smoked: quit 1999 e-Cigarette/Vaping Use: Never Used Second Hand Smoke Exposure: Yes service: No Current occupational status: disabled Cognitive needs: No Hearing needs: No Vision needs: No Questionnaire PHQ-9 Over the last 2 weeks, how often have you been bothered by any of the following problems? 1. Little interest or pleasure in doing things: not at all 2. Feeling down, depressed, or hopeless: several days 3. Trouble falling or staying asleep, or sleeping too much: several days 4. Feeling tired or having little energy: more than half the days 5. Poor appetite or overeating: more than half the days 6. Feeling bad about yourself - or that you are a failure or have let yourself or your family down: more than half the days 7. Trouble concentrating on things, such as reading the newspaper or watching television: more than half the days 8. Moving or speaking so slowly that other people could have noticed. Or the opposite - being so fidgety or restless that you have been moving around a lot more than usual: several days 9. Thoughts that you would be better off or of hurting yourself in some way: several days Total score: 12 Depression Screening Interpretation: Positive Depression Screening Follow-up: Existing condition and In treatment Depression Screening Done: Yes Source: Developed by Drs. Jay Aguilera, Roxana Addison, Mikal Clarke and colleagues, with an educational shu from [employer]. Thrive Questionnaire Date Thrive assessed: 11/28/23 I am a: Patient What is your living situation today?: I have a steady place to live Within the past 12 months, did the food you bought not last and you didn't have the money to get more?: Sometimes True Within the past 12 months, did you worry whether your food would run out before you got money to buy more?: Sometimes True Do you have trouble paying for medicines?: Yes Do you have trouble getting transportation to medical appointments?: Yes Do you have trouble paying your heating and electricity bill?: Yes Do you have trouble taking care of your child, family member or friend?: Yes Do you have trouble with day-to-day activities such as bathing, preparing meals, shopping, managing finances, etc.?: Yes Are you currently unemployed and looking for a job?: Yes Are you interested in more education?: No Please select the resources that you would like help with: None Currently or been in a relationship where the following occur: I choose not to answer THRIVE Score: 4 AUDIT C Alcohol Use Questionnaire (AUDIT-C) 1. How often do you have a drink containing alcohol?: Never Total Score: 0 ROSY-7 AMB Questionnaire ROSY-7 Date ROSY - 7 assessed: 11/28/23 Feeling nervous, anxious, or on edge: 2 = More than half the days Not being able to stop or control worryin = More than half the days Worrying too much about different things: 2 = More than half the days Trouble relaxin = More than half the days Being so restless that it is hard to sit still: 2 = More than half the days Becoming easily annoyed or irritable: 2 = More than half the days Feeling afraid as if something awful might happen: 2 = More than half the days Total ROSY-7 score (0-4 normal; 5-9 mild; 10-14 moderate; 15-21 severe): 14 Source: Developed by Drs. Jay Aguilera, Roxana Addison, Mikal Clarke and colleagues, with an educational shu from [employer]. Review of Systems Const Denies body aches, Denies chills, Denies fever(s), Denies headache(s) and Denies poor appetite Eyes Reports no additional complaints ENT Denies dizziness and Denies headache(s) Card Denies chest pain, Denies lightheadedness and Denies dyspnea Resp Denies cough and Denies dyspnea GI Denies abdominal pain, Reports dyspepsia, Reports heartburn, Denies nausea and Denies vomiting Reports no additional complaints Musc Reports no additional complaints and Denies abnormal gait Skin/Breast Reports system reviewed and no additional complaints, except as documented Neuro Denies abnormal gait, Denies dizziness and Denies headache(s) Psych Reports no additional complaints Physical exam (Primary Care) Vital Signs: Last Vital Signs Temp 97.3 F 10/14/24 10:22 Pulse 67 10/14/24 10:22 BP 126/60 10/14/24 10:22 Pulse Ox 99 10/14/24 10:22 Oxygen Delivery Method Room Air 10/14/24 10:22 BMI result Body Mass Index 28.9 Tobacco/Smoking Status: Tobacco use Status Tobacco use date assessed 10/14/24 10/14/24 10:25 Patient Tobacco Use Status Former Tobacco user 10/14/24 10:24 Tobacco use type Cigarette 10/14/24 10:24 e-Cigarette/Vaping Use Never Used 10/14/24 10:24 PHQ-9: PHQ-9 Score PHQ-9: Total score 12 10/14/24 10:44 Depression Screening Interpretation: Positive Depression Screening Follow-up: Existing condition and In treatment Thrive Assessment: Date of Thrive Assessment Date Thrive assessed 11/28/23 10/14/24 10:24 Currently or been in a relationship where the following occur: I choose not to answer Const General: cooperative, healthy appearing, comfortable and no acute distress Orientation/consciousness: patient oriented x3 HENMT Head: Yes normocephalic Ears: hearing grossly normal bilaterally General nose exam: Normal external nose present Eyes General: appearance normal, both eyes and all related structures Conjunctivae: conjunctivae normal Neck Neck: Yes full ROM and Yes no lymphadenopathy Resp Effort & Inspection: normal respiratory effort Auscultation: clear to auscultation bilaterally, no crackles, no rales, no r honchi and no wheezes Cardio Rate: regular rate Rhythm: regular rhythm Skin General skin exam: no rashes or lesions noted Neuro General: patient oriented x3 Gait exam (Neuro): Normal gait present Extrem General: Yes normal to inspection, Yes full ROM and No edema Psych Affect: normal affect Attitude: cooperative Insight: Good insight present (Psych) Judgement: Good judgement present (Psych) Coding Level of Care Code Est Pt Level 3 (00034) Diagnoses Breast pain, right N64.4 Overweight (BMI 25.0-29.9) E66.3 Hypercholesterolemia E78.00 GERD (gastroesophageal reflux disease) K21.9 Assessment & Plan Assessment & Plan (1) Breast pain, right: Code(s): N64.4 - Mastodynia Category: Medical Plan: Patient complaining of intermittent right breast pain at last visit. Breast ultrasound was negative for any correlate for breast pain. She is no longer having pain. She does continue to follow with Oncology through [facility] and has a breast MRI coming up. (2) Overweight (BMI 25.0-29.9): Code(s): E66.3 - Overweight Category: Medical Plan: Healthy diet and regular exercise is encouraged. Not a candidate for injections at this time. (3) Hypercholesterolemia: Code(s): E78.00 - Pure hypercholesterolemia, unspecified Category: Medical Plan: Avoid foods that are high in cholesterol such as red meat, fried foods, eggs and baked goods. Triglyceride goal of less than 150 and LDL goal of less than 130. Continue on atorvastatin 10 mg. Ordered for updated blood work (4) GERD (gastroesophageal reflux disease): Code(s): K21.9 - Gastro-esophageal reflux disease without esophagitis Category: Medical Plan: Avoid trigger foods such as citrus, tomato products, soda, caffeine, spicy foods and other foods that may be irritating to your stomach. Avoid laying flat 3-4 hours after eating and elevate the head of the bed 30 degrees to prevent acid from moving into the esophagus. Patient c/o symptoms consistent with GERD plan to initiate dietary modification at this time. I did discuss omeprazole however patient would like to hold off on medication at this time. Advised patient to reach out if she would like to trial Omeprazole. Plan The patient was informed about the limitations regarding Wegovy prescription due to her current BMI falling slightly below the required threshold for insurance coverage. New laboratory tests to assess cholesterol levels will be ordered to ensure the effectiveness of her atorvastatin regimen. Additionally, I will ensure the continuation of vitamin and medication refills as requested. Strategies to reduce allergen exposure were discussed, along with continuous monitoring and management of her allergies. I confirmed ongoing follow-up appointments with her oncologist and scheduled imaging tests. This note was constructed using voice recognition software. While every effort has been made to ensure accuracy and goodyear stitcher, still areas may have been included sometimes these areas may affect the content or meeting of the given symptoms. Total time spent caring for the patient today was 20 minutes. This includes time spent before the visit reviewing the chart, time spent during the visit, and time spent after the visit and documentation. Patient was informed and verbally consented to the use of an ambient scribe for clinic note documentation during this visit. Orders: Orders Vitamin D 25-OH Total Today Z00.00 - Encounter for general adult medical examination without abnormal findings Lipid Panel Today E78.00 - Pure hypercholesterolemia, unspecified Complete Blood Count Auto Diff Today Z00.00 - Encounter for general adult medical examination without abnormal findings Comprehensive Met. Panel Today Z00.00 - Encounter for general adult medical examination without abnormal findings TSH reflex Free T4 Today Z00.00 - Encounter for general adult medical examination without abnormal findings Vitamin B12 and Folate Today Z00.00 - Encounter for general adult medical examination without abnormal findings Free T4 (Free Thyroxine) Today Z00.00 - Encounter for general adult medical examination without abnormal findings Referrals Cologuard Test Z12.11 - Encounter for screening for malignant neoplasm of colon, Z12.12 - Encounter for screening for malignant neoplasm of rectum Medications: New cholecalciferol (vitamin D3) (Vitamin D3) 25 mcg PO DAILY 90 caps 2RF lactobacillus comb no.10 (Probiotic) administer with a meal 20,000 mmu cells PO DAILY 90 caps 2RF multivitamin 1 tab PO DAILY 90 tabs 2RF Refilled alendronate 70 mg PO QWEEK 12 tabs 3RF
[2024-10-14 10:22] VITALS: BP 126/60; PULSE 67; TEMP 36.3; O2SAT 99; BMI 28.9
--- OUTSIDE RECORDS SUMMARY | 2024-10-14 11:53 | XMS_ITS | Patient Health Record ---
Author Organization [facility] Address [address] [place] [address] Care Team Providers Care Orthodontic Band Maker Name Role Phone HENOK CHANDLER Unavailable [phone] ALLERGIES No Known Allergies REASON FOR REFERRAL [...] due to excess calories (E66.09) Active confirmed [id number] Problem Age-related osteoporosis without current pathological fracture (M81.0) Active confirmed 99093743 Problem Anxiety (F41.9) Active confirmed 732569 02 Problem Body mass index [BMI] 33.0-33.9, adult (Z68.33) Active confirmed 241805807 Problem BMI 31.0-31.9,adult (Z68.31) Active confirmed [id number] PLAN OF TREATMENT No Information Insurance Providers Payer Name Payer Address Payer Phone Subscriber Number Group Number Insured Name Patient Relationship to Insured Coverage Start Date Coverage End Date Medicare Part B J14 [address] [place] [address] [id number] Jackeline Matthew Self - patient is the insured 0 MEDICAL (GENERAL) HISTORY Medical History History ICD Code cancer headache Arthritis anxiety depression lymphoma Surgical History Surgery Date(Month/Year) Lymphoma removed Hospitalization History Reason Date(Month/Year) Cancer
--- OUTSIDE RECORDS SUMMARY | 2024-10-14 11:53 | XMS_ITS | Patient Health Record ---
Author Organization [facility] Address [address] [place] [address] Care Team Providers Care Med Care Manager Name Role Phone ARACELIS HSIEH M.D.[facility] Primary Care Provider Unavaila Vania Carreon Unavailable [phone] Reason For Referral No Information Plan Of Treatment No Information Insurance Providers Payer Name Payer Address Payer Phone Subscriber Number Group Number Insured Name Patient Relationship to Insured Coverage Start Date Coverage End Date [facility] [address] [address] [place] [address] [id number] MELVI NEGRETE Self - patient is the insured
== END 2024-10-14 10:57 | disposition home or self-care (01) ==
LOC: HO.HMCH 10:13
PROVIDERS: PCP Internal Medicine
DX: N64.4 Mastodynia (principal); E66.3 Overweight; E78.00 Pure hypercholesterolemia, unspecified; K21.9 Gastro-esophageal reflux disease without esophagitis

== ENCOUNTER → 2024-10-14 10:12 | Outpatient (BNVA) | payer MEDICARE, MEDICAID, SELFPAY | PROVIDERS: PCP Internal Medicine | DX: N64.4 Mastodynia (principal); E66.3 Overweight; E78.00 Pure hypercholesterolemia, unspecified; K21.9 Gastro-esophageal reflux disease without esophagitis | CPT/HCPCS: 99212 ==

== ENCOUNTER 2024-10-29 09:53 | Outpatient (REF) | payer MEDICARE, MEDICAID, SELFPAY ==
[2024-10-29 10:10] LABS: MANUAL DIFF FLAG NO
--- OUTSIDE RECORDS SUMMARY | 2024-10-29 10:44 | XMS_ITS ---
Author Organization Jay Lorenz III, MD Address [address] [address] Care Team Providers Care Oil Drilling Engineer Name Role Phone Po Liliya PAN Primary Care Provider Jay Jimenez Unavailable [phone] Allergies Allergen (clinical drug ingredient) Drug/Non Drug [...] Date Provider Diagnosis Jay Lorenz III, MD [address] [place] [address] [address] [place], [place] [id number] 10/11/2024 Jay Lorenz Diffuse large B-cell lymphoma, [...] Notes * Lorna MATTHEWaDOB:1960 (63 yo F)Acc No.[id number]:10/11/2024 Progress Notes Patient:?Jackeline MATTHEW Provider:?Jay Lorenz MD :1960???Age:63 Y???Sex:Female D ate:10/11/2024 Address:[address] [place] [id number] Pcp:Liliya Hsieh MD Subjective: * Chief Complaints: * ???History of diffuse large cell B-cell lymphomaLobular carcinoma in situPituitary tumorHyper-prolactinemiaHistory of depression * HPI: ???COVID-19 Screening:?She returns to the office after a couple of rescheduled visitsFor ongoing surveillance of her history of breast cancer and pituitary tumor and large cell lymphoma in remission.? She has been feeling well.? She has had no headaches or adenopathy fevers or chills or weight loss.? She is due for an MRI of her brain to follow the pituitary tumor.? Her physical examination today showed no sign of lymphoma.? He is up-to-date with her mammograms and her next one was scheduled.? Comprehensive intensive blood work was ordered today.? Follow up was arranged. ?Questions?Have you had any new onset fever, chills, cough, congestion, sore throat, shortness of breath, muscle aches??No * ROS:?General/Constitutional:?pain?only normal aches and pains.?Chills?denies.?Fatigue?admits.?Fever?denies.?ENT:?Decreased hearing?denies.?Respiratory:?Cough?denies.?Cardiovascular:?Chest pain with exertion?denies.?Dyspnea on exertion?denies.?Shortness of breath?denies.?Gastrointestinal:?Constipation?occasional.?Decreased appetite?denies.?Diarrhea?denies.?Heartburn?denies.?Nausea?denies.?Rectal bleeding?denies.?Vomiting?denies.?Hematology:?bruising?denies.?petechiae?denies.?Swollen glands?none have been noted.?Genitourinary:?Frequent urination?at night.?Musculoskeletal:?Muscle aches?denies.?Painful joints?denies.?Sciatica?denies.?Weakness?denies.?Skin:?Itching?denies.?Rash?denies.?Skin lesion(s)?denies.?Neurologic:?Difficulty speaking?denies.?Dizziness?denies.?Headache?denies.?Low back pain?denies.?Psychiatric:?Depressed mood?which is mild.? * Medical History:? * Surgical History:?reduction mammoplasty 09/2004tonsillectomy colonoscopy 2007excision sinus right thigh negative cystoscopy for bladder pain iopsy vertex of the skull 2012 * Hospitalization/Major Diagno stic Procedure:?Denies Past Hospitalization * Family History:?Father: dece ased, Colon cancer [...] Tobacco Non-User?Ex-cigarette smoker ???She was born in [place]. She is single. She has one son. 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 She does not drink or smoke. * Medications:?TakingbuPROPion HCl 100 MG Tablet Oral Lidocaine 5 [...] Notes to Pharmacist: PRNDiscontinuedTrulicity 0.75 MG/0.5ML Solution Pen-injector Subcutaneous oxyCODONE-Acetaminophen 5-325 MG Tablet Oral , Notes to Pharmacist: PRNMedication List reviewed and reconciled with the patientDiscontinued Trulicity 0.75 MG/0.5ML Solution Pen-injector Subcutaneous Discontinued oxyCODONE-Acetaminophen 5-325 MG Tablet Oral , Notes to Pharmacist: PRNMedication List reviewed and reconciled with the patient * Allergies:?No Known Drug All ergyno[Allergies Verified] Objective: * Vitals:?Ht: 67, Wt:188, BMI: 29.44, BP:134/80, HR:61, Temp:97.2, Wt-k.28. * Examination: ???General Examination: ?GENERAL APPEARANCE:?pleasant, well nourished, well developed, in no acute distress, calm and relaxed, overweight, woman.?HEAD:?atraumatic, normocephalic, Occipital skull and scalp are unremarkable.?EYES:?eomi, perrla, anicteric, conjugate.?EARS:?normal.?NOSE:?septum intact.?ORAL CAVITY:?normal, unremarkable.?NECK/THYROID:?no jugular venous distention, no carotid bruit, thyroid normal.?LYMPH NODES:?no enlarged lymph nodes,spleen normal.?SKIN:?no suspicious lesions, anicteric.?HEART:?no clicks, gallops, murmurs, or rubs, regular rhythm, S1, S2 normal, no s3, or vascular bruits.?LUNGS:?clear to auscultation .?BREASTS:?Not examined, Patient declined.?ABDOMEN:?bowel sounds normal, no ascites, no organomegaly, no mass, overweight.?RECTAL EXAM:?not examined, Patient declined.?MUSCULOSKELETAL:?extremities unremarkable, no clubbing, cyanosis or edema.?PERIPHERAL PULSES:?normal.?NEUROLOGIC:?alert and oriented, cranial nerves 2-12 grossly intact, deep tendon reflexes 2+ symmetrical, motor strength normal upper and lower extremities, sensory exam intact.?PSYCH:?alert, oriented, anxious appearing, speech diminished output, volume.? Assessment: * Assessment: 1.?Pituitary tumor - D49.7 ( Primary)???Notes :An MRI of the brain including the pituitary gland has been requested.? If necessary a prolactin level will be obtained.???2.?Diffuse large B-cell lymphoma, lymph nodes of head, face, and neck - C83.31???Notes :There was no sign on the exam or in the vital signs of recurrence.? Comprehensive blood work has been ordered.???3.?Lobular carcinoma in situ - D05.00???Notes :There is no sign of recurrent malignancy today.???4.?Former smoker - Z87.891???Notes :She is not currently smoking and seems motivated not to smoke. I have discussed with her several strategies for maintenance of abstinence in times of stress and illness.???5.?Depression - F32.9???Notes :Her chronic depression is stable and not worse. She will continue her current regimen.???6.?Overweight (BMI 25.0- 29.9) - E66.3???Notes :Her body mass index is 29. She has recently lost weight and is no longer obese. We reviewed her diet and nutrition. I recommended continued weight loss until the body mass index is in the normal range.??? Plan: * Treatment: 2.?Others? Continue buPROPion HCl Tablet, 100 MG, Oral;?Continue Lidocaine Patch, 5 %, External;?Continue Alendronate Sodium Tablet, 70 MG, Oral;?Continue Zolpidem Tartrate Tablet, 10 MG, Oral, Notes to Pharmacist: PRN;?Continue Topiramate Tablet, 25 MG, TAKE 1 TABLET BY MOUTH EVERY DAY, Oral;?Continue Balsalazide Disodium Capsule, 750 MG, Oral;?Continue Mirtazapine Tablet, 15 MG, Oral;?Continue busPIRone HCl Tablet, 5 MG, Oral;?Continue Sertraline HCl Tablet, 100 MG, Oral;?Continue ALPRAZolam Tablet, 0.25 MG, Oral, Notes to Pharmacist: PRN.?? * Procedure Codes:? * Preventive Medicine:? ??Counseling:?Care goal follow-up plan:?Counseling for abnormal BMI given?Yes ?Above Normal BMI Follow-up?Dietary management education, guidance, and counseling, Dietary needs education ?Smoking/Tobacco Use?Patient counseled on the dangers of tobacco use and urged to quit.?10/11/2024 * Follow Up:?6 Months (Reason: ov) * Images: * Sign off status: Completed true * Provider:?Jay Lorenz MD Date:?09/18 Generated for Annai jaison/Lavell/eTransmitting on:?10/29/2024 10:44 AM EDT History and Physical Notes * [...]
--- OUTSIDE RECORDS SUMMARY | 2024-10-29 10:44 | XMS_ITS ---
Author Organization Jay Lorenz III, MD Address [address] [place] [address] Care Team Providers Care Client Care Consultant Name Role Phone Po Liliya PAN Primary Care Provider Jay Jimenez [phone] Allergies Allergen (clinical drug ingredient) Drug/Non Drug [...] Date Provider Diagnosis Jay Lorenz III, MD [address] [place] [address] [place] [address] 09/09/2024 Jay Lorenz Plan Of Treatment Medication [...] MG Oral P RN Progress Notes * Alex MATTHEWB:1960 (64 yo F)Acc No.[id number]:09/09/2024 Progress Notes Patient:?Jackeline MATTHEW Provider:?Jay Lorenz MD :1960???Age:63 Y???Sex:Female D ate:09/09/2024 Address:[address] [place], [place] [id number] Pcp:Liliya Hsieh MD Subjective: * Chief Complaints: [...] cinoma in situ by biospy September, at [facility], active chronic colitis by rectal biospy [...] Tobacco Non-User?Ex-cigarette smoker ???She was born in [place]. She is single. She has one son. [...] Lorenz MD Date:?08/18 Generated for John blackwood/Lavell/eTransmitting on:?10/29/2024 10:44 AM EDT History and Physical [...]
--- OUTSIDE RECORDS SUMMARY | 2024-10-29 10:44 | XMS_ITS | Clinical Summary ---
Author Organization [facility] ity Address [address] [place] [address] Care Team Providers Care Fern Cutter Name Role Phone Unavailable Primary Care Provider Unavailabl e Surgical History Surgery Date Site/Laterality Comments BREAST REDUCTION PROCEDURE: AL BREAST REDUCTION BREAST LUMPECTOMY PROCEDURE: HISTORICAL BREAST LUMPECTOMY; COMMENT: right TONSILLECTOMY ADENOIDECTOMY, BILATERAL MYRINGOTOMY AND TUBES PROCEDURE: AL TONSILLECTOMY & ADENOIDECTOMY <AGE 10 Medical History Medical History Date Comments Anxiety disorder DX:Anxiety diso rder Depression DX:Depression Cancer of breast ([facility] V24, [facility] V28) DX:Cancer of breast (HCC) History of alcohol abuse DX:Hist ory of alcohol abuse Hypercholesterolemia DX:Hypercho lesterolemia Inflammatory bowel disease DX:In flammatory bowel disease Insomnia DX:Insomnia Lymphoma ([facility] V24, [facility] V28) DX:Lymphoma ([facility]) Osteoarthritis DX:Osteoarthriti s Obesity DX:Obesity Pituitary lesion ([facility] V24) D X:Pituitary lesion ([facility]) Postmenopausal DX:Postmenopausa l Social History Tobacco Use Types Packs/Day Years Used Date Smoking Tobacco: Former Smokeless Tobacco: Never Alcohol Use Standard Drinks/Week Comments Not Asked 0 (1 standard drink = 0.6 oz pur e alcohol) Comments Unknown Sex and Gender Information Value Date Recorded Sex Assigned at Not on file Legal Sex Female 4:19 PM EST Gender Identity Not on file Sexual Orientation Not on file Obstetrics History Last Filed Vital Signs Vital Sign Reading Time Taken Comments Blood Pressure 153/77 08/24/2021 1:08 PM EST Pulse 41 08/24/2021 1:08 PM EST Temperature - - Respiratory Rate - - Oxygen Saturation - - Inhaled Oxygen Concentration - - Weight 94.8 kg (209 lb 1.3 oz) 08/24/2021 1:08 P M EST Height 172.7 cm (5' 8 ) 08/24/2021 1:08 PM EST Body Mass Index 31.79 08/24/2021 1:08 PM EST Plan of Treatment Upcoming Encounters Date Type Department Care Team (Late st Contact Info) Description 02/27/2025 8:45 AM EDT Office Visit Bariatric Surgery - [place] [address] [place] [id number] Gautam Kilpatrick MD [address] [facility] [address] [place] [address] Health Maintenance Due Date Last Done Comments Breast Cancer Screening 1960 COVID-19 Vaccine (#1) 10/25/1963 DTaP,Tdap,and Td Vaccines (1 - Tdap) 1977 Pneumococcal Vaccine: 50+ Years (1 of 2 - PCV) 1977 Zoster Vaccines (1 of 2) 1977 Cholesterol Screening (Lipid Panel) 05/18/2022 Colorectal Cancer Screening: Colonoscopy 05/18/2022 Depression Screening 05/18/2022 Hepatitis C Screening 05/18/2022 Osteoporosis Screening (Bone Density Screening) 05/18/2022 Social Influencers of Health Screening 05/18/2022 Falls Risk Assessment 10/25/2023 Influenza Vaccine (Season Ended) 2025 01/28/2023, 04/03/2022, 02/27/2021, Additional history exists RSV Immunization Adult Patients (1 - 1-dose 75+ series) 2033 HIB Vaccines Aged Out No longer eligi ble based on patient's age to complete this topic HPV Vaccines Aged Out No longer eligi ble based on patient's age to complete this topic Hepatitis A Vaccines Aged Out No long er eligible based on patient's age to complete this topic Hepatitis B Vaccines Aged Out No long er eligible based on patient's age to complete this topic IPV Vaccines Aged Out No longer eligi ble based on patient's age to complete this topic MMR Vaccines Aged Out No longer eligi ble based on patient's age to complete this topic Meningococcal ACWY Vaccine Aged Out N o longer eligible based on patient's age to complete this topic Meningococcal B Vaccine Aged Out No l onger eligible based on patient's age to complete this topic RSV Immunization Patients Under 20 months Aged Out No longer eligible based on patient's age to complete this topic Varicella Vaccines Aged Out No longer eligible based on patient's age to complete this topic
--- OUTSIDE RECORDS SUMMARY | 2024-10-29 10:45 | XMS_ITS | Patient Health Record ---
Author Organization Jay Lorenz III, MD Address [address] [facility] [place] [place] [address] Care Team Providers Care Medical Laboratory Technologist Name Role Phone Liliya Hsieh MD Primary Care Provider Jay Jimenez Unavailable [phone] Allergies Allergen (clinical drug ingredient) Drug/Non Drug Allergy documented on EMR Reaction Allergy Type Onset Date Status No Known Drug Allergy Unknown Drug Allergy Active Reason For Referral No Information Medications Medication SIG (Take, Route, Frequency, Duration) Notes Start Date End Date Status buPROPion HCl 100 MG Oral Active ALPRAZolam 0.25 MG Oral PRN A ctive Lidocaine 5 % External Active Alendronate Sodium 70 MG Oral Active busPIRone HCl 5 MG Oral A ctive Sertraline HCl 100 MG Oral Active Mirtazapine 15 MG Oral Ac tive Zolpidem Tartrate 10 MG Oral PRN Active Topiramate 25 MG TAKE 1 TABLET BY EVERY DAY Oral Active Balsalazide Disodium 750 MG Oral Active Social History Tobacco Use: Social History Observation Description Date Details (start date - stop date) Former Smoker NA - NA Sex Assigned At : Social History Observation Description Sex Assigned At Female Tobacco Use/Smoking Question Answer Notes Patient is a former smoker How long has it been since you last smoked? > 10 years Additional Findings: Tobacco Non-User Ex-cigaret te smoker Alcohol Screen Question Answer Notes Did you have a drink containing alcohol in the p ast year? No Points 0 Interpretation Negative Problems Problem Type SNOMED Code ICD Code Onset Dates Problem Status W/U Status Risk Notes Problem 9533752 Former smoker (Z87.891) Active confirmed She is not currently smoking and seems motivated not to smoke. I have discussed with her several strategies for maintenance of abstinence in times of stress and illness. Problem 052469539 Overweight (BMI 25.0-29.9) (E66.3) Active confirmed Her body mass index is 29. She has recently lost weight and is no longer obese. We reviewed her diet and nutrition. I recommended continued weight loss until the body mass index is in the normal range. Problem 17375825 Depression (F32.9) Active confirmed Her chronic depression is stable and not worse. She will continue her current regimen. Problem Diffuse large B- cell lymphoma, lymph nodes of head, face, and neck (C83.31) Active confirmed There was no sign on the exam or in the vital signs of recurrence. Comprehensive blood work has been ordered. Problem 789958566 Hyperprolactinem ia (E22.1) Active confirmed The prolactin level is now 14, in the normal range. Problem 119967328 Pituitary tumor (D49.7) Active confirmed An MRI of the brain including the pituitary gland has been requested. If necessary a prolactin level will be obtained. Problem 14622161 Uterine fibroid (D25.9) Active confirmed She had no new complaints about uterine fibroids today. She is under the care of [employer] and primary care. Problem 58470310 Chronic colitis (K52.9) Active confirmed She says is probably stable and she has occasional diarrhea but is not impaired in the activities of daily living. Problem 405551821 Lobular carcinom a in situ (D05.00) Active confirmed There is no sign of recurrent malignancy today. Vital Signs Heart Rate 61 /min 10/11/2024 Temperature 97.2 degrees Fahrenheit 10/11/2024 Blood pressure diastolic 80 mm Hg 10/11/2024 Height 67 in 10/11/2024 Blood pressure systolic 134 mm Hg 10/11/2024 Weight 188 lbs 10/11/2024 BMI 29.44 kg/m2 10/11/2024 Encounters Encounter Location Date Provider Diagnosis Jay Lorenz III, MD [address] [place] [address] [address] [place]LE, JORDAN [address] 10/11/2024 Jay Lorenz Diffuse large B-cell lymphoma, lymph nodes of head, face, and neck C83.31 ; Pituitary tumor D49.7 ; Lobular carcinoma in situ D05.00 ; Former smoker Z87.891 ; Depression F32.9 and Overweight (BMI 25.0-29.9) E66.3 Jay Lorenz III, MD [address] [place] [address] DR POOLE, JORDAN [address] 01/24/2024 Jay Lorenz Assessments Encounter Date Diagnosis (ICD Code) Assessment [...] in the normal range. Plan Of Treatment Pending Test Test Name Order Date PROFILE, FASTING (COMPREHENSIVE METABOLI C) 07/24/2023 PROFILE, RANDOM (COMPREHENSIVE METABOLIC ) 02/25/2022 PROFILE, RANDOM (COMPREHENSIVE METABOLIC ) 03/01/2023 PROFILE, RANDOM (COMPREHENSIVE METABOLIC ) 01/19/2022 LDH 07/24/2023 LDH 02/25/2022 CBC w DIFF 03/01/2023 CBC w DIFF 02/25/2022 CBC w DIFF 01/19/2022 SED RATE (ESR) 03/01/2023 SED RATE (ESR) 07/24/2023 PROLACTIN 02/25/2022 PROLACTIN 01/19/2022 MRI BRAIN W&WO CONTRAST 10/11/2024 MRI BRAIN W&WO CONTRAST 01/19/2022 MRI BRAIN W&WO CONTRAST 02/03/2017 MRI BRAIN W&WO CONTRAST 03/13/2019 MAMMOGRAM DIGITAL BILATERAL SCREEN 08/29 CBC WITH AUTO DIFF 07/24/2023 Lipid Panel 07/24/2023 Microalbumin, Random 07/24/2023 Hemoglobin A1c 07/24/2023 Insurance Providers Payer Name Payer Address Payer Phone Subscriber Number Group Number Insured Name Patient Relationship to Insured Coverage Start Date Coverage End Date MEDICARE NGS [address] [place] [address] [id number] Jackeline Matthew Self - patient is the insured [place] [address] [place] [id number] Jackeline Matthew Self - patient is the insured Medical (General) History Medical History History ICD Code lobular carcinoma in situ by biospy Apri l , at [facility] active chronic colitis by re ctal biospy [...]
--- OUTSIDE RECORDS SUMMARY | 2024-10-29 10:45 | XMS_ITS ---
Author Organization Jay Lorenz III, MD Address [address] [facility] [address] [place] [place] [address] Care Team Providers Care Air Grinder Name Role Phone Liliya Hsieh MD Primary Care Provider Jay Jimenez [facility] [phone] REASON FOR VISIT follow up Social History Sex Assigned At : Social History Observation Description Sex Assigned At Female Encounters Encounter Location Date Provider Diagnosis Jay Lorenz III, MD [address] [place] [address] [address] [place] [address] 08/14/2024 Jay Lorenz Plan Of Treatment No Information Progress Notes * Alex MATTHEWB:1960 (64 yo F)Acc No.[id number]:08/14/2024 Progress Notes Patient:?Jackeline MATTHEW Provider:?Jay Lorenz MD :1960???Age:63 Y???Sex:Female D ate:08/14/2024 Address:[address] [place], [place] [phone] Pcp:Liliya Hsieh MD Subjective: * Chief Complaints: [...] Provider:?Jay Lorenz MD Date:?07/21 Generated for John blackwood/Lavell/Maryitting on:?10/29/2024 10:44 AM EDT
--- OUTSIDE RECORDS SUMMARY | 2024-10-29 10:45 | XMS_ITS | Patient Health Record ---
Author Organization [facility] Address [address] [place] [address] Care Team Providers Care Graves Registration Specialist Name Role Phone HENOK CHANDLER Unavailable [phone] ALLERGIES No Known Allergies REASON FOR REFERRAL [...] due to excess calories (E66.09) Active confirmed 553785358 Problem Age-related osteoporosis without current pathological fracture (M81.0) Active confirmed 57085524 Problem Anxiety (F41.9) Active confirmed 919033 02 Problem Body mass index [BMI] 33.0-33.9, adult (Z68.33) Active confirmed 131201479 Problem BMI 31.0-31.9,adult (Z68.31) Active confirmed 097534718 PLAN OF TREATMENT No Information Insurance Providers Payer Name Payer Address Payer Phone Subscriber Number Group Number Insured Name Patient Relationship to Insured Coverage Start Date Coverage End Date Medicare Part B J14 [address] [place] [address] [id number] Jackeline Matthew Self - patient is the insured 0 MEDICAL (GENERAL) HISTORY Medical History History ICD Code cancer headache Arthritis anxiety depression lymphoma Surgical History Surgery Date(Month/Year) Lymphoma removed Hospitalization History Reason Date(Month/Year) Cancer
--- OUTSIDE RECORDS SUMMARY | 2024-10-29 10:45 | XMS_ITS | Patient Health Record ---
Author Organization [facility] Address [address] [facility] [address] [place] [address] Care Team Providers Care Plastic Fixture Builder Name Role Phone ARACELIS HSIEH M.D.[facility] Primary Care Provider Unavaila Vania Carreon Unavailable [phone] Reason For Referral No Information Plan Of Treatment No Information Insurance Providers Payer Name Payer Address Payer Phone Subscriber Number Group Number Insured Name Patient Relationship to Insured Coverage Start Date Coverage End Date [facility] [address] [address] [place] [address] [id number] MELVI NEGRETE Self - patient is the insured
--- OUTSIDE RECORDS SUMMARY | 2024-10-29 10:45 | XMS_ITS | Patient Health Record ---
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) Active confirmed [...] Provider Name:Jay Duarte , 11/14/2024 10:20:00 AM, [address] [place] [address], [address], [place], [address], Insurance Providers Payer Name Payer Address Payer Phone Subscriber Number Group Number Insured Name Patient Relationship to Insured Coverage Start Date Coverage End Date MEDICARE OF [place] [address] [place] [address] [id number] MELVI NEGRETE Self - patient is the insured MEDICAID OF [employer] [facility] [address] [place] [address] [id number] CADENMELVI Self - patient is the insured Medical (General) History Medical History History ICD Code Distal ulcerative proctitis- diagnosed with colonoscopy 06-05-2008--there were no polyps Breast cancer-see below Denies MA,DM,CVA,Lung disease,renal dise ase Depression Tendonitis bilateral shoulders [...]
[2024-10-29 10:47] LABS: Basophils Percent Auto 0.5 % (0-2); Eosinophils Absolute Auto 0.2 X10*3/uL (0.0-0.4); Eosinophils Percent Auto 2.7 % (0-4); Hematocrit 43.6 % (37.0-47.0); Hemoglobin 14.4 g/dl (12.0-16.0); Imm Gran Abs Auto 0.01 X10*3/uL (0.00-0.03); Imm Gran Pct Auto 0.2 % (0.0-0.4); Lymphocytes Absolute Auto 2.7 X10*3/uL (1.2-4.9); Lymphocytes Percent Auto 49.3 % (20-40); Mean Corpuscular Hemoglobin 29.3 pg (27.0-33.0); Mean Corpuscular Volume 88.8 fL (80.0-98.0); Mean Platelet Volume 11.1 fL (9.4-12.3); Monocytes Absolute Auto 0.4 X10*3/uL (0.1-1.2); Monocytes Percent Auto 7.1 % (2-11); Neutrophils Absolute Auto 2.2 x10*3/uL (2.0-8.3); Neutrophils Percent Auto 40.2 % (45-73); Platelet Count 251 X10*3/uL (160-400); Red Blood Count 4.91 X10*6/uL (4.20-5.50); Red Cell Distribution Width 14.3 % (11.0-16.0); White Blood Count 5.5 X10*3/uL (4.8-10.8)
[2024-10-29 11:53] LABS: Alanine Aminotransferase 29 U/L (0-31); Albumin Level 4.3 g/dL (3.5-5.0); Anion Gap 14 (12-20); Aspartate Amino Transferase 25 U/L (5-31); Bilirubin Total 0.3 mg/dL (0.0-1.0); Blood Urea Nitrogen 9 mg/dL (9-16); Calcium 9.7 mg/dL (8.4-10.2); Carbon Dioxide 24 mmol/L (22-29); Chloride 111 mmol/L (96-108); Cholesterol 132 mg/dL (<200); Estimated Glomerular Filt Rate > 60; Glucose Random 97 mg/dL (60-115); HDL Cholesterol 54 mg/dL (>40); LDL Cholesterol Calculated 62 mg/dL (<100); Potassium 3.9 mmol/L (3.3-5.1); Sodium 145 mmol/L (135-145); Total Protein 7.8 g/dL (6.5-8.0); Triglycerides 80 mg/dL (<150)
[2024-10-29 11:58] LABS: Free T4 (Free Thyroxine) 0.87 ng/dL (0.71-1.85); TSH reflex Free T4 2.49 uIU/mL (0.32-4.0); Vitamin D 25-OH Total 76.1 ng/mL (>30)
[2024-10-29 12:25] LABS: Folate > 20.0 ng/mL (> or = 4.0); Vitamin B12 1763 pg/mL (200-900)
[2024-10-29 12:35] LABS: Alkaline Phosphatase 60 U/L (39-117)
== END 2024-10-29 09:54 | disposition home or self-care (01) ==
LOC: HO.LAB 09:53
PROVIDERS: PCP Internal Medicine
DX: Z00.00 Encounter for general adult medical examination without abnormal findings (principal); E78.00 Pure hypercholesterolemia, unspecified
CPT/HCPCS: 36415; 80053; 80061; 82306; 82607; 82746; 84439; 84443; 85025

== ENCOUNTER → 2025-03-17 10:30 | Outpatient (BNV) | payer MEDICARE, MEDICAID, SELFPAY | PROVIDERS: PCP Internal Medicine; Visit Provider Internal Medicine | DX: Z12.31 Encounter for screening mammogram for malignant neoplasm of breast (principal) | CPT/HCPCS: 77063; 77067 ==

== ENCOUNTER 2025-03-17 10:31 | Outpatient (REF) | payer MEDICARE, MEDICAID, SELFPAY ==
--- OUTSIDE RECORDS SUMMARY | 2024-01-24 12:05 | XMS_ITS ---
Author Organization Jay Lorenz III, MD Address [address] [place] [address] [place] [address] Care Team Providers Care Station Engineer Chief Name Role Phone Liliya Santiago MD Primary Care Provider Dr. Jay Jimenez III Unavailable [phone] REASON FOR VISIT Needs call back from Social History Sex Assigned At : Social History Observation Description Sex Assigned At Female Encounters Encounter Location Date Provider Diagnosis Jay Lorenz III, MD [address] [place] [address] [place] [address] 01/24/2024 Jay Lorenz Plan Of Treatment No Information Progress Notes * Jewel MATTHEW:1960 (63 yo F)Acc No.[id number]:01/24/2024 Patient: Jackeline Rodrigues :1960 A ge:63 Y S ex:Female Address:[address] [place] [phone] * true * Date: Generated for Printi ng/Faxing/eTransmitting on: 0 03/17/2025 11:45 AM EDT
--- OUTSIDE RECORDS SUMMARY | 2024-08-14 13:15 | XMS_ITS ---
Author Organization Jay Lorenz III, MD Address [address] [place] [address] [place] [address] Care Team Providers Care Physical Science Technician Name Role Phone Liliya Hsieh MD Primary Care Provider Dr. Jay Jimenez III [facility] REASON FOR VISIT follow up Social History Sex Assigned At : Social History Observation Description Sex Assigned At Female Encounters Encounter Location Date Provider Diagnosis Jay Lorenz III, MD [address] [place] [address] [place] [address] 08/14/2024 Jay Lorenz Plan Of Treatment No Information Progress Notes * Alex MATTHEWB:1960 (64 yo F)Acc No.[id number]:08/14/2024 Progress Notes Patient: Jackeline CHOU Provider: Hosea Lorenz MD :1960 A ge:63 Y S ex:Female Date:08/14/2024 Address:[address] [place], [place] [id number] Pcp:Liliya Hsieh MD Subjective: * Chief Complaints: [...] 0 08/14/2024 Generated for John blackwood/Lavell/Demetri on: 0 03/17/2025 11:46 AM EDT
--- OUTSIDE RECORDS SUMMARY | 2024-09-09 05:45 | XMS_ITS ---
Author Organization Jay Lorenz III, MD Address [address] [place] [address] Care Team Providers Care Ems Director Name Role Phone Po Liliya PAN Primary [...] Date Provider Diagnosis Jay Lorenz III, MD [address] [place] [address] [place] [address] 09/09/2024 Jay Lorenz Plan Of Treatment Medication [...] Notes * Lorna MATTHEWaDOB:1960 (64 yo F)Acc No.[id number]:09/09/2024 Progress Notes Patient: Jackeline CHOU Provider: Hosea Lorenz MD :1960 A ge:63 Y S ex:Female Date:09/09/2024 Address:[address] [place] [phone] Pcp:Liliya Santiago MD Subjective: * Chief Complaints: [...] carcinoma in situ by biospy September, at [facility], active chronic colitis by rectal biospy [...] x-cigarette smoker S he was born in [place]. She is single. She has one son. [...] 0 09/09/2024 Generated for John blackwood/Lavell/Maryitting on: 03/17/2025 11:45 AM EDT History and Physical Notes * [...]
--- OUTSIDE RECORDS SUMMARY | 2024-10-11 06:30 | XMS_ITS ---
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 Jay Jimenez III Unavailable Allergies Allergen (clinical drug ingredient) Drug/Non Drug Allergy documented on EMR Reaction Allergy Type Onset Date Status No Known Drug Allergy Unknown Drug Allergy Active REASON FOR VISIT History of diffuse large cell B-cell lymphoma, Lobular carcinoma in situ, Pituitary tumor, Hyper-prolactinemia, History of depression Medications Medication SIG (Take, Route, Frequency, Duration) Notes Start Date End Date Status ALPRAZolam 0.25 MG Oral PRN A ctive busPIRone HCl 5 MG Oral A ctive Sertraline HCl 100 MG Oral Active Alendronate Sodium 70 MG Oral Active Mirtazapine 15 MG Oral Ac tive Zolpidem Tartrate 10 MG Oral PRN Active Topiramate 25 MG TAKE 1 TABLET BY EVERY DAY Oral Active Balsalazide Disodium 750 MG Oral Active buPROPion HCl 100 MG Oral Active Lidocaine 5 % External Active Social History Tobacco Use: Social History Observation Description Date Details (start date - stop date) Former Smoker NA - NA Sex Assigned At : Social History Observation Description Sex Assigned At Female Tobacco Use/Smoking Question Answer Notes Patient is a former smoker How long has it been since you last smoked? > 10 years Additional Findings: Tobacco Non-User Ex-cigaret te smoker Vital Signs Temperature 97.2 degrees Fahrenheit 10/12/19 25 Blood pressure systolic 134 mm Hg 10/12/19 25 Blood pressure diastolic 80 mm Hg 025 Heart Rate 61 /min 10/11/2024 Height 67 in 10/11/2024 Weight 188 lbs 10/11/2024 BMI 29.44 kg/m2 10/11/2024 Encounters Encounter Location Date Provider Diagnosis Jay Lorenz III, MD [address] [place] [address] [address] [place], [place] [id number] 10/11/2024 Jay Lorenz Diffuse large B-cell lymphoma, lymph nodes of head, face, and neck C83.31 ; Pituitary tumor D49.7 ; Lobular carcinoma in situ D05.00 ; Former smoker Z87.891 ; Depression F32.9 and Overweight (BMI 25.0-29.9) E66.3 Assessments Encounter Date Diagnosis (ICD Code) Assessment Notes Treatment Notes Treatment Clinical Notes 10/11/2024 Diffuse large B-cell lymphoma, lymph nodes of head, face, and neck (ICD-10 - C83.31) There was no sign on the exam or in the vital signs of recurrence. Comprehensive blood work has been ordered. 10/11/2024 Pituitary tumor (ICD-10 - D49.7) An MRI of the brain including the pituitary gland has been requested. If necessary a prolactin level will be obtained. 10/11/2024 Lobular carcinoma in situ (ICD-10 - D05.00) There is no sign of recurrent malignancy today. 10/11/2024 Former smoker (ICD-10 - Z87.891) She is not currently smoking and seems motivated not to smoke. I have discussed with her several strategies for maintenance of abstinence in times of stress and illness. 10/11/2024 Depression (ICD-10 - F32.9) Her chronic depression is stable and not worse. She will continue her current regimen. 10/11/2024 Overweight (BMI 25.0-29.9) (ICD-10 - E66.3) Her body mass index is 29. She has recently lost weight and is no longer obese. We reviewed her diet and nutrition. I recommended continued weight loss until the body mass index is in the normal range. Plan Of Treatment Medication Medication Name Sig Start Date Stop Date Notes ALPRAZolam 0.25 MG Oral PRN busPIRone HCl 5 MG Oral Sertraline HCl 100 MG Oral Alendronate Sodium 70 MG Oral Mirtazapine 15 MG Oral Zolpidem Tartrate 10 MG Oral P RN Topiramate 25 MG TAKE 1 TABLET BY QUINTON TH EVERY DAY Oral Balsalazide Disodium 750 MG Oral buPROPion HCl 100 MG Oral Lidocaine 5 % External Pending Test Test Name Order Date MRI BRAIN W&WO CONTRAST 10/11/2024 Next Appt Details Follow Up: 6 Months, Reason: ov Progress Notes * Lorna MATTHEWaDOB:1960 (63 yo F)Acc No.[id number]:10/11/2024 Progress Notes Patient: Jackeline CHOU Provider: Hosea Lorenz MD :1960 A ge:63 Y S ex:Female Date:10/11/2024 Address:[address] [place] [id number] Pcp:Liliya Santiago MD Subjective: * Chief Complaints: * H istory of diffuse large cell B-cell lymphomaLobular carcinoma in situPituitary tumorHyper-prolactinemiaHistory of depression * HPI: C OVID-19 Screening: S he returns to the office after a couple of rescheduled visitsFor ongoing surveillance of her history of breast cancer and pituitary tumor and large cell lymphoma in remission. She has been feeling well. She has had no headaches or adenopathy fevers or chills or weight loss. She is due for an MRI of her brain to follow the pituitary tumor. Her physical examination today showed no sign of lymphoma. He is up-to-date with her mammograms and her next one was scheduled. Comprehensive intensive blood work was ordered today. Follow up was arranged. Questions H ave you had any new [...] of breath d enies. G astrointestinal: Constipation o ccasional. D ecreased appetite d enies. D iarrhea d enies. H eartburn d enies. N ausea d enies. R ectal bleeding d enies. V omiting d enies. H ematology: bruising d enies. p etechiae d enies. S wollen glands n one have been noted. G enitourinary: Frequent urination a t night. M usculoskeletal: Muscle aches d enies. P ainful joints d enies. S ciatica d enies. W eakness d enies. S kin: Itching d enies. R nighat d enies. S kin lesion(s)?denies. N eurologic: Difficulty speaking d enies. D izziness d enies.?Headache d enies. L ow back pain d enies. P sychiatric: Depressed mood w hich is mild. * Medical History: * Surgical History: r eduction mammoplasty 09/2004tonsillectomy colonoscopy 2007excision sinus right thigh negative cystoscopy for bladder pain iopsy vertex of the skull 2012 * Hospitalization/Major Diagno stic Procedure: D enies Past Hospitalization * Family History: F ather: , Colon [...] x-cigarette smoker S he was born in [place]. She is single. She has one son. 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 She does not drink or smoke. * Medications: T akingbuPROPion HCl 100 MG Tablet Oral Lidocaine 5 % Patch External Alendronate Sodium 70 MG Tablet Oral Zolpidem Tartrate 10 MG Tablet Oral , Notes to Pharmacist: PRNTopiramate 25 MG Tablet TAKE 1 TABLET BY MOUTH EVERY DAY Oral Balsalazide Disodium 750 MG Capsule Oral Mirtazapine 15 MG Tablet Oral busPIRone HCl 15 MG Tablet 1 tablet Orally Sertraline HCl 100 MG Tablet Oral ALPRAZolam 0.25 MG Tablet Oral , Notes to Pharmacist: PRNTaking buPROPion HCl 100 MG Tablet Oral Taking Lidocaine 5 % Patch External Taking Alendronate Sodium 70 MG Tablet Oral Taking Zolpidem Tartrate 10 MG Tablet Oral , Notes to Pharmacist: PRNTaking Topiramate 25 MG Tablet TAKE 1 TABLET BY MOUTH EVERY DAY Oral Taking Balsalazide Disodium 750 MG Capsule Oral Taking Mirtazapine 15 MG Tablet Oral Taking busPIRone HCl 15 MG Tablet 1 tablet Orally Taking Sertraline HCl 100 MG Tablet Oral Taking ALPRAZolam 0.25 MG Tablet Oral , Notes to Pharmacist: PRNDiscontinuedTrulicity 0.75 MG/0.5ML Solution Pen- injector Subcutaneous oxyCODONE-Acetaminophen 5-325 MG Tablet Oral , Notes to Pharmacist: PRNMedication List reviewed and reconciled with the patientDiscontinued Trulicity 0.75 MG/0.5ML Solution Pen-injector Subcutaneous Discontinued oxyCODONE- Acetaminophen 5-325 MG Tablet Oral , Notes to Pharmacist: PRNMedication List reviewed and reconciled with the patient * Allergies: N o Known Drug Allergyno[Allergies Verified] Objective: * Vitals: H t: 67, Wt:188, BMI:29.44, BP:134/80, HR:61, Temp:97.2, Wt-k.28. * Examination: G eneral Examination: GENERAL APPEARANCE: p leasant, well nourished, well developed, in no acute distress, calm and relaxed, overweight, woman. HEAD: a traumatic, normocephalic, Occipital skull and scalp are unremarkable. EYES: e ashish, perrla, anicteric, conjugate. EARS: [...] LUNGS: c lear to auscultation . BREASTS: N ot examined, Patient declined. ABDOMEN: b owel sounds normal, no ascites, no organomegaly, no mass, overweight. RECTAL EXAM: n ot examined, Patient declined. MUSCULOSKELETAL: e xtremities unremarkable, no clubbing, cyanosis or edema. PERIPHERAL PULSES: n ormal. NEUROLOGIC: a lert and oriented, cranial nerves 2-12 grossly intact, deep tendon reflexes 2+ symmetrical, motor strength normal upper and lower extremities, sensory exam intact. PSYCH: a lert, oriented, anxious appearing, speech diminished output, volume. Assessment: * Assessment: 1. P ituitary tumor - D49.7 (Primary) N otes :An MRI of the brain including the pituitary gland has been requested. If necessary a prolactin level will be obtained. 2 . D iffuse large B-cell lymphoma, lymph nodes of head, face, and neck - C83.31 N otes :There was no sign on the exam or in the vital signs of recurrence. Comprehensive blood work has been ordered. 3 . L obular carcinoma in situ - D05.00 N otes :There is no sign of recurrent malignancy today. 4 . F ormer smoker - Z87.891 N otes :She is not currently smoking and seems motivated not to smoke. I have discussed with her several strategies for maintenance of abstinence in times of stress and illness. 5 . D epression - F32.9 N otes :Her chronic depression is stable and not worse. She will continue her current regimen. 6 . O verweight (BMI 25.0-29.9) - E66.3 N otes :Her body mass index is 29. She has recently lost weight and is no longer obese. We reviewed her diet and nutrition. I recommended continued weight loss until the body mass index is in the normal range. Plan: * Treatment: 2. O thers Continue buPROPion HCl Tablet, 100 MG, Oral; C ontinue Lidocaine Patch, 5 %, External; C ontinue Alendronate Sodium Tablet, 70 MG, Oral; C ontinue Zolpidem Tartrate Tablet, 10 MG, Oral, Notes to Pharmacist: PRN; C ontinue Topiramate Tablet, 25 MG, TAKE 1 TABLET BY MOUTH EVERY DAY, Oral; C ontinue Balsalazide Disodium Capsule, 750 MG, Oral; C ontinue Mirtazapine Tablet, 15 MG, Oral; C ontinue busPIRone HCl Tablet, 5 MG, Oral; C ontinue Sertraline HCl Tablet, 100 MG, Oral; C ontinue ALPRAZolam Tablet, 0.25 MG, Oral, Notes to Pharmacist: PRN. * Procedure Codes: * Preventive Medicine: Counseling: C are goal follow-up plan: Counseling for abnormal BMI given Y es Above Normal BMI Follow-up D ietary management education, guidance, and counseling, Dietary needs education S moking/Tobacco Use Patient counseled on the dangers of tobacco use and urged to quit. 0 10/11/2024 * Follow Up: 6 Months (Reason: ov) * Images: * Sign off status: Completed true * Provider: Hosea Lorenz MD Date: 10/11/2024 Generated for John blackwood/Lavell/Maryitting on: 0 03/17/2025 11:45 AM EDT History and Physical Notes * HPI (History of Present Illness) Category Sub-Category Detail Notes COVID-19 Screening Questions Have you had any new onset fever, chills, cough, congestion, sore throat, shortness of breath, muscle aches?: No Examination Category Sub-Category Detail Notes General Examination GENERAL APPEARANCE: pleasant , well nourished, well developed, in no acute distress, calm and relaxed, overweight, woman HEAD: atraumatic, normocep halic, Occipital skull and scalp are unremarkable EYES: eomi, perrla, anicte rabia, conjugate EARS: normal NOSE: septum intact NECK/THYROID: no jugular venous di stention, no carotid bruit, thyroid normal HEART: no clicks, gallops, murmurs, or rubs, regular rhythm, S1, S2 normal, no s3, or vascular bruits LUNGS: clear to auscultatio n ABDOMEN: bowel sounds normal, no ascites, no organomegaly, no mass, overweight NEUROLOGIC: alert and oriented, cranial nerves 2-12 grossly intact, deep tendon reflexes 2+ symmetrical, motor strength normal upper and lower extremities, sensory exam intact SKIN: no suspicious lesion s, anicteric PERIPHERAL PULSES: normal BREASTS: Not examined, Patien t declined MUSCULOSKELETAL: extremities unremark able, no clubbing, cyanosis or edema LYMPH NODES: no enlarged lymph no belén,spleen normal RECTAL EXAM: not examined, Patien t declined PSYCH: alert, oriented, anx ious appearing, speech diminished output, volume ORAL CAVITY: normal, unremarkable
--- OUTSIDE RECORDS SUMMARY | 2025-02-14 06:30 | XMS_ITS ---
Author Organization [facility] Address [address] [place] [address] Care Team Providers Care Eligibility Analyst Name Role Phone Vito Santiago MD Primary Care Provider Unavailabl Jay Crespo [phone] REASON FOR VISIT ulcerative colitis,fam hx colon ca,screening Encounters Encounter Location Date Provider Diagnosis [facility] [address] [place], [place] [phone] 02/14/2025 Jay Duarte Plan Of Treatment No Information Progress Notes * ONEIL NEGRETEADOB:1960 (64 yo F)Acc No.[id number]:02/14/2025 COLON WITH MAC Patient: MELVI CHOU Provider: Hosea Duarte MD :1960 A ge:64 Y S ex:Female Date:02/14/2025 Address:[address] [place], [place] [phone] Pcp:Vito Santiago MD Subjective: * Chief Complaints: [...] Pending * Provider: Hosea Duarte MD Date: 02/14/2025 Generated for John blackwood/Lavell/Maryitting on: 03/17/2025 11:46 AM EDT
--- NOTE | ~2025-03-17 | MM_ITS ---
EXAMINATION: MM SCREENING DIGITAL BREAST TOMOSYNTHESIS, BILATERAL CLINICAL INFORMATION: Screening. Asymptomatic. COMPARISON: Mammography: Comparison is made with available priors TECHNIQUE: Digital breast mammography with tomosynthesis is performed in both the craniocaudal and mediolateral oblique views along with computer-aided detection (CAD). FINDINGS: There are scattered areas of fibroglandular density. Bilateral reduction mammoplasty. There are no significant masses, abnormal calcifications, or other abnormalities. MM/MM tomosynthesis screening BI IMPRESSION: No mammographic evidence of malignancy. ASSESSMENT: BI-RADS Category 2: Benign RECOMMENDATION: Routine annual mammography screening. 1 year F/U This examination should not preclude the clinical evaluation of a suspicious palpable abnormality. This patient's information was entered into a reminder system with a target due date for their next mammogram. Electronically signed by: Rekha Bone DO 03/18/2025 04:49 PM EDT
--- OUTSIDE RECORDS SUMMARY | 2025-03-17 11:46 | XMS_ITS | Patient Health Record ---
Author Organization Jay Lorenz III, MD Address [address] [place] [address] [place] [address] Care Team Providers Care Furniture Sales Consultant Name Role Phone Liliya Hsieh MD Primary Care Provider Dr. Jay Jimenez III Unavailable [phone] Allergies Allergen (clinical drug ingredient) Drug/Non Drug [...] 1 TABLET BY QUINTON EVERY DAY Oral Active Balsalazide Disodium 750 [...] Problem Status W/U Status Risk Notes Problem 7284740 Former smoker (Z87.891) Active confirmed She is not currently smoking and seems motivated not to smoke. I have discussed with her several strategies for maintenance of abstinence in times of stress and illness. Problem 607584265 Overweight (BMI 25.0-29.9) (E66.3) Active confirmed Her body mass index is 29. She has recently lost weight and is no longer obese. We reviewed her diet and nutrition. I recommended continued weight loss until the body mass index is in the normal range. Problem 54337413 Depression (F32.9) Active confirmed Her chronic depression is stable and not worse. She will continue her current regimen. Problem Diffuse large B- cell lymphoma, lymph nodes of head, face, and neck (C83.31) Active confirmed There was no sign on the exam or in the vital signs of recurrence. Comprehensive blood work has been ordered. Problem 274764809 Hyperprolactinem ia (E22.1) Active confirmed The prolactin level is now 14, in the normal range. Problem 938665745 Pituitary tumor (D49.7) Active confirmed An MRI of the brain including the pituitary gland has been requested. If necessary a prolactin level will be obtained. Problem 32796777 Uterine fibroid (D25.9) Active confirmed She had no new complaints about uterine fibroids today. She is under the care of [facility] [employer] and primary care. Problem 41059871 Chronic colitis (K52.9) Active confirmed She says is probably stable and she has occasional diarrhea but is not impaired in the activities of daily living. Problem 817246032 Lobular carcinom a in situ (D05.00) Active [...] Date Provider Diagnosis Jay Lorenz III, MD [address] [place] [address] DR [place]OOLE, JORDAN [address] 10/11/2024 Jay Lorenz Diffuse large B-cell lymphoma, [...] (ESR) 07/24/2023 SED RATE (ESR) 03/01/2023 PROLACTIN 01/19/2022 PROLACTIN 02/25/2022 MRI BRAIN W&WO CONTRAST 10/11/2024 MRI BRAIN [...] NGS [address] [place] [address] [id number] Jackeline Matthew Self - patient is the insured MEDICAID [place] [address] [place], [place] [id number] Jackeline Matthew Self - patient is the insured Medical (General) History Medical History History ICD Code lobular carcinoma in situ by biospy Apr, at [facility] active chronic colitis by re ctal [...]
--- OUTSIDE RECORDS SUMMARY | 2025-03-17 11:46 | XMS_ITS | Patient Health Record ---
Author Organization [facility] Address [address] [place] [id number] Care Team Providers Care Assistant Brand Manager Name Role Phone Po Vito PAN Primary Care Provider Jay Marks [phone] Reason For Referral No Information Medications Medication SIG (Take, Route, Frequency, Duration) Notes Start Date End Date Status MiraLax (colon prep) 17 GM/SCOOP 1 238 Gm bottle mixed with Gatorade or Crystal Light orally begin at 5:00 p.m. the day before the procedure for 1 days 11/14/2024 Active Dulcolax (colon prep) 5 MG take at 3:00 p.m and 7:00p.m. Orally two tablets twice a day for one day for 1 days 11/14/2024 Active Alendronate Sodium A ctive Multi Vitamin/Minerals Active Zolpidem Tartrate Ac tive Balsalazide Disodium 750 MG TAKE 3 CAPSU LES BY MOUTH 3 TIMES A DAY FOR 90 DAYS for 90 Active Sertraline HCl Activ e Problems Problem Type SNOMED Code ICD Code Onset Dates Problem Status W/U Status Risk Notes Problem Colon cancer screening (404075819) Colon cancer screening (Z12.11) Active confirmed Problem 85295156 Diarrhea (R19.7) Active confirmed Problem 100433153 Gastroesophageal reflux disease, esophagitis presence not specified (K21.9) Active confirmed Problem 11521936 Ulcerative proctitis, 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) Active confirmed Problem Family history of malignant neoplasm of gastrointestinal tract (997353978) Family history of colon cancer in father (Z80.0) Active confirmed Vital Signs Blood pressure diastolic 88 mm Hg 11/14/2024 Height 66 in 11/14/2024 Blood pressure systolic 111 mm Hg 11/14/2024 Weight 188 lbs 11/14/2024 BMI 30.34 kg/m2 11/14/2024 Procedures Procedure Date Ordered Date Performed Result Body Sit e COLONOSCOPY 11/14/2024 N/A Encounters Encounter Location Date Provider Diagnosis [facility] [address] [place] [address] 11/14/2024 Jay Duarte Ulcerative proctitis , without complications K51.20 ; Family history of colon cancer in father Z80.0 and Colon cancer screening Z12.11 [facility] [address] [place] [address] 02/12/2025 Jay Duarte [facility] [address] [place] [address] 11/14/2024 Jay Duarte Assessments Encounter Date Diagnosis (ICD Code) Assessment Notes Treatment Notes Treatment Clinical Notes Section Notes 11/14/2024 Ulcerative proctitis, without complications (ICD-10 - K51.20) Overall, Melvi appears quite well. Her ulcerative proctitis seems to be stable on the current regimen of balsalazide. I did advise her to continue that on a long-term basis to hopefully maintain stability of the proctitis. I did recommend a colonoscopy for her even though she had a recent negative Cologuard test. I advised her that given family history of colon cancer in her father, her last colonoscopy being in 2007, and the nearly 20-year history of inflammatory bowel disease, albeit just proctitis, I think she is at a higher risk of colorectal polyps and/or cancer that would justify colonoscopy at this time as opposed to just relying on the Cologuard test. Full consent has been obtained from her for the colonoscopy, including risks of bleeding and perforation. The procedure will be done with monitored anesthesia care. Melvi was comfortable with this plan. Thank you again for allowing me to participate in Melvi's care. I shall continue to keep you advised of her progress. 11/14/2024 Family history of colon cancer in father (ICD-10 - Z80.0) Overall, Melvi appears quite well. Her ulcerative proctitis seems to be stable on the current regimen of balsalazide. I did advise her to continue that on a long-term basis to hopefully maintain stability of the proctitis. I did recommend a colonoscopy for her even though she had a recent negative Cologuard test. I advised her that given family history of colon cancer in her father, her last colonoscopy being in 2007, and the nearly 20-year history of inflammatory bowel disease, albeit just proctitis, I think she is at a higher risk of colorectal polyps and/or cancer that would justify colonoscopy at this time as opposed to just relying on the Cologuard test. Full consent has been obtained from her for the colonoscopy, including risks of bleeding and perforation. The procedure will be done with monitored anesthesia care. Melvi was comfortable with this plan. Thank you again for allowing me to participate in Melvi's care. I shall continue to keep you advised of her progress. 11/14/2024 Colon cancer screening (ICD-10 - Z12.11) Overall, Melvi appears quite well. Her ulcerative proctitis seems to be stable on the current regimen of balsalazide. I did advise her to continue that on a long-term basis to hopefully maintain stability of the proctitis. I did recommend a colonoscopy for her even though she had a recent negative Cologuard test. I advised her that given family history of colon cancer in her father, her last colonoscopy being in 2007, and the nearly 20-year history of inflammatory bowel disease, albeit just proctitis, I think she is at a higher risk of colorectal polyps and/or cancer that would justify colonoscopy at this time as opposed to just relying on the Cologuard test. Full consent has been obtained from her for the colonoscopy, including risks of bleeding and perforation. The procedure will be done with monitored anesthesia care. Melvi was comfortable with this plan. Thank you again for allowing me to participate in Melvi's care. I shall continue to keep you advised of her progress. Plan Of Treatment Pending Test Test Name Order Date COLONOSCOPY 11/14/2024 LIVER PROFILE 09/23/2015 CRP 09/23/2015 CBC with MANUAL DIFFERENTIAL 09/23/2015 SED RATE (ESR) 09/23/2015 CLOSTRIDIUM DIFF TOXIN A&B (C DIFF) 11/2015 STOOL WBC 09/23/2015 OVA & PARASITES (O&P) 09/23/2015 CULTURE, STOOL 09/23/2015 Future Test Test Name Order Date COLONOSCOPY 05/08/2014 Insurance Providers Payer Name Payer Address Payer Phone Subscriber Number Group Number Insured Name Patient Relationship to Insured Coverage Start Date Coverage End Date MEDICARE OF [place] [address] NIMESH COTTON [id number] [phone] [id number] MELVI NEGRETE Self - patient is the insured 0 [facility] [facility] [employer] [facility] [address] [place] [address] [phone] [id number] MELVI NEGRETE Self - patient is the insured Medical (General) History Medical History History ICD Code Distal ulcerative proctitis- diagnosed with colonoscopy 06-05-2008--there were no polyps Breast cancer-see below Denies [place],DM,CVA,Lung disease,renal dise ase Depression Tendonitis bilateral shoulders 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 Sethi--sees Dr. Lorenz--chemo and XRT Pituitary tumor--being followed by Dr. Arnaldo weston and Dr. Santiago Surgical History Surgery Date(Month/Year) Lymphoma as above Scalp lesion with lymphoma as above Tonsillectomy Right breast ca. 2005 found incidentally during her breast reduction surgery, and treated with 5 years of tamoxifen Breast reduction
--- OUTSIDE RECORDS SUMMARY | 2025-03-17 11:47 | XMS_ITS | Patient Health Record ---
Author Organization [facility] [address] Address [address] [place] [address] Care Team Providers Care Casing Worker Name Role Phone HENOK CHANDLER Unavailable [phone] Allergies No Known Allergies Reason For Referral No Information Medications Medication SIG (Take, Route, Frequency, Duration) Notes Start Date End Date Status Balsalazide Disodium 750 MG Oral; Duration: 90 Active ALPRAZolam 0.25 MG Oral; Duration: 30 Active Lidocaine 5 % External; Duration: 90 Active Sertraline HCl 100 MG Oral; Duration: 90 Active busPIRone HCl 5 MG Oral; Duration: 90 Active Zolpidem Tartrate 10 MG Oral; Duration: 90 Active Mirtazapine 15 MG Oral; Duration: 90 Active oxyCODONE-Acetaminophen 5-325 MG Oral; Duration: 30 Active Phentermine HCl 15 MG 1 capsule Orally O nce a day; Duration: 30 days Active Topamax 25 MG 1 tablet Orally Once a day; Duration: 90 days Active Alendronate Sodium 70 MG Oral; Duration: 84 Active Social History Tobacco Use: Social History Observation Description Date Details (start date - stop date) Never Smoker NA - NA Tobacco Use/Smoking Question Answer Notes Are you a nonsmoker Problems Problem Type SNOMED Code ICD Code Onset Dates Problem Status W/U Status Risk Notes Problem Obesity due to excess calories (278651737) Other obesity due to excess calories (E66.09) Active confirmed Problem Age-related osteoporosis (140199486) Age-related osteoporosis without current pathological fracture (M81.0) Active confirmed Problem Anxiety (85515814) Anxiety (F41.9) Active confirmed Problem Body mass index 30.00 to 34.99 (212586647060705 ) Body mass index [BMI] 33.0-33.9, adult (Z68.33) Active confirmed Problem Body mass index 30.00 to 34.99 (811906956364223 ) BMI 31.0-31.9,adult (Z68.31) Active confirmed Plan Of Treatment No Information Insurance Providers Payer Name Payer Address Payer Phone Subscriber Number Group Number Insured Name Patient Relationship to Insured Coverage Start Date Coverage End Date Medicare Part B [id number] [address] [place] [address] [id number] Jackeline Matthew Self - patient is the insured 0 Medical (General) History Medical History History ICD Code cancer headache Arthritis anxiety depression lymphoma Surgical History Surgery Date(Month/Year) Lymphoma removed Hospitalization History Reason Date(Month/Year) Cancer
--- OUTSIDE RECORDS SUMMARY | 2025-03-17 11:47 | XMS_ITS | Patient Health Record ---
Author Organization [facility] Address [address] [place] [address] Care Team Providers Care Public Health Analyst Name Role Phone ARACELIS HSIEH M.D.[facility] Primary Care Provider Unavaila Vania Carreon Unavailable [phone] Reason For Referral No Information Plan Of Treatment No Information Insurance Providers Payer Name Payer Address Payer Phone Subscriber Number Group Number Insured Name Patient Relationship to Insured Coverage Start Date Coverage End Date [employer] [address] [address] [place] [address] [id number] MELVI NEGRETE Self - patient is the insured
== END 2025-03-17 10:32 | disposition home or self-care (01) ==
LOC: HO.MAMMO 10:31
PROVIDERS: PCP Internal Medicine; Visit Provider Internal Medicine
DX: Z12.31 Encounter for screening mammogram for malignant neoplasm of breast (principal)
CPT/HCPCS: 77063; 77067

== ENCOUNTER 2025-03-31 11:07 | Outpatient (AMB) | payer MEDICARE, MEDICAID, SELFPAY ==
--- OUTSIDE RECORDS SUMMARY | 2024-01-24 12:05 | XMS_ITS ---
Author Organization Jay Lorenz III, MD Address [address] [place] [address] [place] [address] Care Team Providers Care Forestry Farm Laborer Name Role Phone Liliya Santiago MD Primary Care Provider Dr. Jay Jimenez III Unavailable REASON FOR VISIT Needs call back from Social History Sex Assigned At : Social History Observation Description Sex Assigned At Female Encounters Encounter Location Date Provider Diagnosis Jay Lorenz III, MD [address] [place] [address] [place] [address] 01/24/2024 Jay Lorenz Plan Of Treatment No Information Progress Notes * Jewel MATTHEW:1960 (63 yo F)Acc No.[id number]:01/24/2024 Patient: Jackeline Rodrigues :1960 A ge:63 Y S ex:Female Address:[address] [place] [phone] * true * Date: Generated for Printi ng/Faxing/eTransmitting on: 1 11:12 AM EDT
--- OUTSIDE RECORDS SUMMARY | 2024-08-14 13:15 | XMS_ITS ---
Author Organization Jay Lorenz III, MD Address [address] [place] [address] [place] [address] Care Team Providers Care Block Captain Name Role Phone Liliya Hsieh MD Primary Care Provider Dr. Jay Jimenez III [facility] REASON FOR VISIT follow up Social History Sex Assigned At : Social History Observation Description Sex Assigned At Female Encounters Encounter Location Date Provider Diagnosis Jay Lorenz III, MD [address] [place] [address] [place] [address] 08/14/2024 Jay Lorenz Plan Of Treatment No Information Progress Notes * Jewel MATTHEW:1960 (64 yo F)Acc No.[id number]:08/14/2024 Progress Notes Patient: Jackeline CHOU Provider: Hosea Lorenz MD :1960 A ge:63 Y S ex:Female Date:08/14/2024 Address:[address] [place], [place] [id number] Pcp:Liliya Hsieh MD Subjective: * Chief Complaints: [...] 08/14/2024 Generated for John blackwood/Lavell/Demetri on: 1 11:13 AM EDT
--- OUTSIDE RECORDS SUMMARY | 2024-09-09 05:45 | XMS_ITS ---
Author Organization Jay Lorenz III, MD Address [address] [place] [address] Care Team Providers Care Carbon Coating Machine Operator Name Role Phone Po Liliya PAN Primary [...] Provider Diagnosis Jay Lorenz III, MD [address] [place] [address] [place] [address] 09/09/2024 Jay Lorenz Plan Of Treatment Medication [...] Notes * Lorna MATTHEWaDOB:1960 (64 yo F)Acc No.[id number]:09/09/2024 Progress Notes Patient: Jackeline CHOU Provider: Hosea Lorenz MD :1960 A ge:63 Y S ex:Female Date:09/09/2024 Address:[address] [place] [phone] Pcp:Liliya Santiago MD Subjective: * Chief Complaints: [...] carcinoma in situ by biospy September, at [facility], active chronic colitis by rectal biospy by [...] x-cigarette smoker S he was born in [place]. She is single. She has one son. [...] 0 09/09/2024 Generated for John blackwood/Lavell/Maryitting on: 11:12 AM EDT History and Physical Notes * [...]
--- OUTSIDE RECORDS SUMMARY | 2025-02-14 06:30 | XMS_ITS ---
Author Organization [facility] Address [address] [place] [address] Care Team Providers Care Hand Shoe Cutter Name Role Phone Vito Santiago MD Primary Care Provider Unavailabl Jay Crespo [phone] REASON FOR VISIT ulcerative colitis,fam hx colon ca,screening Encounters Encounter Location Date Provider Diagnosis [facility] [address] [place] [phone] 02/14/2025 Jay Duarte Plan Of Treatment No Information Progress Notes * ONEIL NEGRETEADOB:1960 (64 yo F)Acc No.[id number]:02/14/2025 COLON WITH MAC Patient: MELVI CHOU Provider: Hosea Duarte MD :1960 A ge:64 Y S ex:Female Date:02/14/2025 Address:[address] [place], [place] [phone] Pcp:Vito Santiago MD Subjective: * Chief Complaints: * 1 . Ulcerative colitis,fam hx colon ca,screening. * Medical History: Objective: * Vitals: Assessment: Plan: * Treatment: * * The named appointment provid er may or may not be the originator of this progress note, and it is not deemed complete until electronically signed by the appointment provider. Sign off status: Pending * Provider: Hosea Duarte MD Date: 0 02/14/2025 Generated for John blackwood/Lavell/Maryitting on: 11:11 AM EDT
--- OUTSIDE RECORDS SUMMARY | 2025-03-28 08:34 | XMS_ITS | Encounter Summary ---
Author Organization [facility] Address [address] [place] [address] Care Team Providers Care Rotary Slicing Machine Operator Name Role Phone Unavailable Primary Care Provider Unavailabl e Reason for Visit * Reason Comments Vaginal Discharge Encounter Details Date Type Department Care Team (Late st Contact Info) Description 03/28/2025 8:34 AM EDT - 03/28/2025 10:14 AM EDT Emergency [facility] Emergency [address] [place] [address] Acute vaginitis (Primary Dx); Trichomonal vaginitis Discharge Disposition: Home or Self Care Social History Tobacco Use Types Packs/Day Years Used Date Smoking Tobacco: Former Smokeless Tobacco: Never Alcohol Use Standard Drinks/Week Comments Not Asked 0 (1 standard drink = 0.6 oz pur e alcohol) Comments Unknown Sex and Gender Information Value Date Recorded Sex Assigned at Not on file Legal Sex Female 4:19 PM EST Gender Identity Not on file Sexual Orientation Not on file documented as of this encounter Last Filed Vital Signs Vital Sign Reading Time Taken Comments Blood Pressure 135/77 03/28/2025 8:14 AM EDT Pulse 64 03/28/2025 8:14 AM EDT Temperature 36.7 C (98.1 F) 03/28/2025 8:14 AM EDT Respiratory Rate 18 03/28/2025 8:14 AM EDT Oxygen Saturation 100% 03/28/2025 8:14 AM EDT Inhaled Oxygen Concentration - - Weight 83.9 kg (185 lb) 03/28/2025 8:14 AM EDT Height 172.7 cm (5' 8 ) 03/28/2025 8:14 AM EDT Body Mass Index 28.13 03/28/2025 8:14 AM EDT documented in this encounter Functional Status * Are you deaf or do you have serious difficulty hearing? Answer Date of Assessment Author No 03/28/2025 8:43 AM EDT Rebekah Richey RN * Are you blind or do you have serious difficulty seeing, even when wearing glasses? Answer Date of Assessment Author No 03/28/2025 8:43 AM EDT Rebekah Richey RN * Do you have serious difficulty walking or climbing stairs? Answer Date of Assessment Author No 03/28/2025 8:43 AM EDT Rebekah Richey RN * Do you have serious difficulty dressing or bathing? Answer Date of Assessment Author No 03/28/2025 8:43 AM EDT Rebekah Richey RN * Because of a physical, mental, or emotional condition, do you have serious difficulty doing errandsalone such as visiting the doctor? Answer Date of Assessment Author No 03/28/2025 8:43 AM EDRebekah Reyes RN * Calculated C-SSRS Risk Score (Lifetime/Recent) Answer Date of Assessment Author No Risk Indicated 03/28/2025 8:13 AM EDNahomy Infante RN * [place] Suicide Severity Rating Scale (Screener/Recent Self-Report) Question Answer Date of Assessment Author 1. Wish to be (Past 1 Month) No 025 8:13 AM Nahomy Garner RN 2. Non-Specific Active Suici linda Thoughts (Past 1 Month) No 03/28/2025 8:13 AM GENAROT Rozina Mehta sa, RN 6. Suicidal Behavior (Lifetime) No 8:13 AM Nahomy Garner RN documented as of this encounter Mental Status * Because of a physical, mental, or emotional condition, do you have serious difficulty concentrating, remembering, or making decisions? (5 years old or older) Answer Entry Date Author No 03/28/2025 8:43 AM Rebekah Vanessa RN documented in this encounter Discharge Instructions * Discharge Instructions* KASEY Meade - 03/28/2025 9:55 AM EDT Please follow-up with primary care physician and/or [facility] as soon as possible as discussed. Pleasereturn to ED immediately if symptoms worsen or change. You can find resources for hormone replacement online pending appointment with [facility]. * Attachments The following attachments cannot be sent through Care Everywhere. * Trichomoniasis (Indonesian) * Vaginitis (Indonesian) documented in this encounter Medications at Time of Discharge metroNIDAZOLE (FLAGYL) 500 mg tablet Take 1 tablet (500 mg total) by mouth 2 (two) times a day for 7 days. Do not use mouth wash or consume alcohol until 48 hours after last dose 14 tablet 03/28/2025 04/04/2025 documented as of this encounter Ordered Prescriptions Prescription Sig Dispense Quantity Refills Last Filled Start Date End Date metroNIDAZOLE (FLAGYL) 500 mg tablet Take 1 tablet (500 mg total) by mouth 2 (two) times a day for 7 days. Do not use mouth wash or consume alcohol until 48 hours after last dose 14 tablet 03/28/2025 documented in this encounter Discharge Disposition Disposition Code Departure Means Destination Comment s Home or Self Care documented in this encounter Progress Notes * Nahomy Mehta RN - 03/28/2025 8:12 AM EDT Patient reports vaginal odor, discharge. Denies painful urination and states no unprotected sex. * KASEY Meade - 03/28/2025 8:10 AM EDT HPI Chief Complaint Patient presents with ??? Vaginal Discharge 64-year-old female presents to the emergency department with abnormal malodorous discharge that hasbeen present for months. Patient states her last sexual activity was greater than 4 months ago. Patient states she has been seen by urgent care and had a workup that was essentially negative. Patientstates she has also had postmenopausal symptoms that she would like treatment for. Patient states she saw her primary care physician who refused to treat but gave her referral to [facility]. Patient states that appointment is not till August. Patient states that she is in her usual state of health besides the symptoms. She denies fever chills nausea vomiting chest pain shortness of breath abdominal pain urinary or bowel complaints. Patient did use a Borax treatment to her vagina but otherwise has not taken anything for her symptoms. HPI [place] Coma Scale Score: 15 Patient History Medical History[1] Surgical History[2] Family History[3] Social History Tobacco Use ??? Smoking status: Former ??? Smokeless tobacco: Never Substance Use Topics ??? Alcohol use: Not on file ??? Drug use: Never Review of Systems Review of Systems All other systems reviewed and are negative. Physical Exam ED Triage Vitals [03/28/25 0814] Temp Heart Rate Resp BP 36.7 ??C (98.1 ??F) 64 18 135/77 SpO2 Temp Source Heart Rate Source Patient Position 100 % Oral -- -- BP Location FiO2 (%) -- -- Physical Exam Vitals and nursing note reviewed. Constitutional: Appearance: Normal appearance. HENT: Head: Normocephalic and atraumatic. Pulmonary: Effort: Pulmonary effort is normal. Breath sounds: Normal breath sounds. Abdominal: General: Abdomen is flat. There is no distension. Palpations: Abdomen is soft. There is no mass. Tenderness: There is no abdominal tenderness. Hernia: No hernia is present. Genitourinary: Rectum: Normal. Comments: [place] vaginal discharge noted on exam. No cervical motion or adnexal tenderness noted. Skin: General: Skin is warm and dry. Neurological: General: No focal deficit present. Mental Status: She is alert. ED Course & MDM Clinical Impressions as of 03/28/25 0954 Acute vaginitis Trichomonal vaginitis Medical Decision Making 64-year-old female presents to the emergency department with abnormal vaginal discharge that is malodorous for the past 3 to 4 months. Symptoms have not worsened they are just not going away. Patientdenies abdominal pain. No tenderness on exam. No indication for imaging at this time. Cultures taken. patient is eating and drinking well. Patient is nontoxic-appearing vital signs stable. Wet prep indeterminate for trichomonas so we will treat at this time. Gonorrhea and Chlamydia testing is stillpending. Patient will follow-up with primary care physician and/or [facility] as soon as possible as discussed. Patient will return to ED immediately if symptoms worsen or change. Patient will avoid sexual activity pending results of cultures. Procedures KASEY Meade 03/28/25 0953 [1] Past Medical History: Diagnosis Date ??? Anxiety disorder DX:Anxiety disorder ??? Cancer of breast (CMS/HCC V24, CMS/HCC V28) DX:Cancer of breast (HCC) ??? Depression DX:Depression ??? History of alcohol abuse DX:History of alcohol abuse ??? Hypercholesterolemia DX:Hypercholesterolemia ??? Inflammatory bowel disease DX:Inflammatory bowel disease ??? Insomnia DX:Insomnia ??? Lymphoma (CMS/HCC V24, CMS/HCC V28) DX:Lymphoma (HCC) ??? Obesity DX:Obesity ??? Osteoarthritis DX:Osteoarthritis ??? Pituitary lesion (CMS/HCC V24) DX:Pituitary lesion (HCC) ??? Postmenopausal DX:Postmenopausal [2] Past Surgical History: Procedure Laterality Date ??? BREAST LUMPECTOMY PROCEDURE: HISTORICAL BREAST LUMPECTOMY; COMMENT: right ??? BREAST REDUCTION PROCEDURE: [place] BREAST REDUCTION ??? TONSILLECTOMY ADENOIDECTOMY, BILATERAL MYRINGOTOMY AND TUBES PROCEDURE: [place] TONSILLECTOMY & ADENOIDECTOMY <AGE 10 [3] No family history on file. Cosigned by Tari Ayala MD at 03/28/2025 10:56 AM EDT documented in this encounter Plan of Treatment Not on file documented as of this encounter Procedures Procedure Name Priority Date/Time Associated Diagnosis Comments TRICHOMONAS VAGINALIS ANTIGEN STAT 03/28/2025 8:46 AM EDT WET PREP, GENITAL STAT 03/28/2025 8:4 6 AM EDT CHLAMYDIA TRACHOMATIS AND NEISSERIA GONORRHOEAE PCR STAT 03/28/2025 8:45 AM EDT URINALYSIS WITH REFLEX MICROSCOPIC AND CULTURE STAT 03/28/2025 8:43 AM EDT MEAD URINE CULTURE TUBE STAT 03/28/2025 8:43 AM EDT URINALYSIS WITH REFLEX MICROSCOPIC AND CULTURE STAT 03/28/2025 8:43 AM EDT documented in this encounter Results * Trichomonas vaginalis antigen (03/28/2025 8:46 AM EDT) Trichomonas vaginalis Negative Negative 03/28/2025 9:53 AM EDT [facility] Vaginal Fluid Vaginal structure / Unknown Non-blood Collection / Unknown 03/28/2025 8:46 AM EDT 03/28/2025 9:01 AM EDT [facility] MICROBIOLOGY - GENER AL ORDERABLES Final Result Performing Organization Address [facility] Co de Phone Number [facility] [address] [place] [address], [place] [phone] * Wet prep, genital (03/28/2025 8:46 AM EDT) Pathologist [facility] Clue Cells, Wet Prep Negative Negative 03/28/2025 9:37 AM EDT [facility] Yeast, Wet Prep Negative Negative 03/28/2025 9:37 AM EDT [facility] Trichomonas, Wet Prep Indeterminate Negative 03/28/2025 9:37 AM EDT [facility] Comment:Refer to Trichomonas antigen. Vaginal Fluid Vaginal structure / Unknown Non-blood Collection / Unknown 03/28/2025 8:46 AM EDT 03/28/2025 9:01 AM EDT [facility] MICROBIOLOGY - GENER AL ORDERABLES Final Result Performing Organization Address [facility]/ZIP Co de Phone Number [facility] [address] [place] [address], [place] [phone] * Chlamydia trachomatis and Neisseria gonorrhoeae molecular study (03/28/2025 8:45 AM EDT) Neisseria gonorrhoeae PCR Negative Negative LAB MOLECULAR DIAGNOSTICS METHOD 03/28/2025 11:56 AM EDT [facility] Chlamydia trachomatis PCR Negative Negative LAB MOLECULAR DIAGNOSTICS METHOD 03/28/2025 11:56 AM EDT [facility] Swab Vaginal structure / Unknown Non-blood Collection / Unknown 03/28/2025 8:45 AM EDT 03/28/2025 9:01 AM EDT [facility] MICROBIOLOGY - GENER AL ORDERABLES Final Result [facility] [address] [place] [address], [place] [phone] * [place] urine culture tube (03/28/2025 8:43 AM EDT) [facility] Extra Tube Hold for add-ons. 03/28/2025 11:01 AM EDT [facility] Comment:Auto resulted. Urine Urine specimen obtained by clean catch procedure / Unknown Non-blood Collection / Unknown 03/28/2025 8:43 AM EDT 03/28/2025 9:01 AM EDT [facility] URINE ORDERABLES Fin al Result Performing Organization Address City/[facility]/ZIP Co de Phone Number [facility] [address] [place] [address], [place] [phone] * Urinalysis with reflex microscopic and culture (03/28/2025 8:43 AM EDT) [facility] Specific [place] Urine 1.006 1.003 - 1.030 LAB URINALYSIS - AUTOMATED METHOD 03/28/2025 9:16 AM EDT [facility] pH, Urine 7.5 5.0 - 8.0 pH LAB URINALYSIS - AUTOMATED METHOD 03/28/2025 9:16 AM EDT [facility] Leukocytes, Urine Negative Negative LAB URINALYSIS - AUTOMATED METHOD 03/28/2025 9:16 AM [facility] Nitrite, Urine Negative Negative LAB URINALYSIS - AUTOMATED METHOD 03/28/2025 9:16 AM [facility] Protein, Urine Negative <=Trace mg/dL LAB URINALYSIS - AUTOMATED METHOD 03/28/2025 9:16 AM [facility] Glucose, Urine Negative Negative mg/dL LAB URINALYSIS - AUTOMATED METHOD 03/28/2025 9:16 AM [facility] Ketones, Urine Negative Negative mg/dL LAB URINALYSIS - AUTOMATED METHOD 03/28/2025 9:16 AM [facility] Urobilinogen, Urine 0.2 0.2 - 1.0 mg/dL LAB URINALYSIS - AUTOMATED METHOD 03/28/2025 9:16 AM [facility] Bilirubin, Urine Negative Negative LAB URINALYSIS - AUTOMATED METHOD 03/28/2025 9:16 AM [facility] Blood, Urine Negative Negative LAB URINALYSIS - AUTOMATED METHOD 03/28/2025 9:16 AM [facility] Urine Urine specimen obtained by clean catch procedure / Unknown Non-blood Collection / Unknown 03/28/2025 8:43 AM EDT 03/28/2025 9:01 AM EDT us [facility] URINE ORDERABLES Fin al Result [facility] [address] [place] [address], documented in this encounter Visit Diagnoses Diagnosis Acute vaginitis- Primary Unspecified vaginitis and vulvovaginitis Trichomonal vaginitis Trichomonal vulvovaginitis documented in this encounter
[2025-03-31 11:12] VITALS: BP 134/78; PULSE 65; O2SAT 98; BMI 28.6
--- NOTE | 2025-03-31 11:12 | A.OFFPC_ITS ---
Vital Signs 03/31/25 11:12 Height 5 ft 8 in Weight 188 lb BMI 28.6 BP 134/78 Blood Pressure Location Lt brachial Position Sitting Pulse 65 Pulse Source Pulse Oximeter Pulse Oximetry (%) 98 Oxygen Delivery Method Room Air Intake Visit Reasons: Estrogen patch, hormone therapy Allergies No Known Allergies Allergy (Verified 03/31/25 11:13) Medication List - Last Reconciled 03/31/25 by Vito Santiago MD alendronate 70 mg PO QWEEK alprazolam 0.25 mg (1/2 x 0.5 mg) PO BID-TID PRN 30 days atorvastatin 10 mg PO DAILY buspirone 15 mg PO BEDTIME cholecalciferol (vitamin D3) (Vitamin D3) 25 mcg PO DAILY diclofenac sodium 3% 1 appl topical BID gabapentin 300 mg PO BID lactobacillus comb no.10 (Probiotic) 20,000 mmu cells PO DAILY lidocaine 5% (Lidoderm) 2 patches topical DAILY multivitamin 1 tab PO DAILY sertraline 150 mg (1.5 x 100 mg) PO DAILY 90 days zolpidem 10 mg PO BEDTIME Tobacco use date assessed: 10/14/24 Fall risk assessment: No Falls in past year Last assessed Fall Risk: 03/31/25 Dental Screening Dental Screen Date: 10/14/24 [facility] Medical History Right shoulder pain Bilateral shoulder pain Left shoulder pain Preop exam for internal medicine Obesity (BMI 30.0-34.9) Osteopenia Age-related osteoporosis without current pathological fracture Colonoscopy refused History of alcohol abuse Hypercholesterolemia Breast cancer Lymphoma Pituitary lesion Osteoarthritis Insomnia Inflammatory bowel disease Overweight (BMI 25.0-29.9) Anxiety and depression Surgical History History of hysteroscopy Hx of cystoscopy H/O colonoscopy History of bilateral breast reduction surgery History of surgery History of lumpectomy of right breast History of tonsillectomy Family History Father Colon cancer Mother Lymphoma Family/Other Breast cancer Sister Ovarian cancer Social History Household Members Other:: son Housing: House Are you a primary senior care manager to a significant other at home: No Do you presently have visiting nurse or other home services: Yes (son is COUNTER POCKET TRIMMER) Alcohol intake: former Patient Tobacco Use Status: Former Tobacco user Tobacco use type: Cigarette Years Smoked: quit 1999 e-Cigarette/Vaping Use: Never Used Second Hand Smoke Exposure: Yes service: No Current occupational status: disabled Cognitive needs: No Hearing needs: No Vision needs: No Questionnaire Thrive Questionnaire Date Thrive assessed: 10/14/24 I am a: Patient What is your living situation today?: I have a steady place to live Within the past 12 months, did the food you bought not last and you didn't have the money to get more?: Sometimes True Within the past 12 months, did you worry whether your food would run out before you got money to buy more?: Sometimes True Do you have trouble paying for medicines?: Yes Do you have trouble getting transportation to medical appointments?: Yes Do you have trouble paying your heating and electricity bill?: Yes Do you have trouble taking care of your child, family member or friend?: Yes Do you have trouble with day-to-day activities such as bathing, preparing meals, shopping, managing finances, etc.?: Yes Are you currently unemployed and looking for a job?: Yes Are you interested in more education?: No Please select the resources that you would like help with: None Currently or been in a relationship where the following occur: I choose not to answer THRIVE Score: 4 ROSY-7 AMB Questionnaire ROSY-7 Date ROSY - 7 assessed: 11/28/23 Source: Developed by Drs. Jay Aguilera, Roxana Addison, Mikal Clarke and colleagues, with an educational shu from [employer]. Physical exam (Primary Care) Vital Signs: Last Vital Signs Pulse 65 03/31/25 11:12 BP 134/78 03/31/25 11:12 Pulse Ox 98 03/31/25 11:12 Oxygen Delivery Method Room Air 03/31/25 11:12 BMI result Body Mass Index 28.6 Tobacco/Smoking Status: Tobacco use Status Tobacco use date assessed 10/14/24 03/31/25 11:13 Patient Tobacco Use Status Former Tobacco user 03/31/25 11:13 Tobacco use type Cigarette 03/31/25 11:13 e-Cigarette/Vaping Use Never Used 03/31/25 11:13 Thrive Assessment: Date of Thrive Assessment Date Thrive assessed 10/14/24 03/31/25 11:13 Currently or been in a relationship where the following occur: I choose not to answer Const General: alert; No acute distress Eyes Conjunctivae: conjunctivae normal Resp Auscultation: clear to auscultation bilaterally Cardio Rate: regular rate Rhythm: regular rhythm GI Inspection: Yes normal to inspection Extrem General: Yes normal to inspection and No edema Coding Level of Care Code Est Pt Level 4 (73481) Complex EM visit Add On G2211 Diagnoses GERD (gastroesophageal reflux disease) K21.9 Malignant neoplasm of right female breast, unspecified estrogen receptor status, unspecified site of breast C50.911 Breast location: unspecified site of breast Estrogen receptor status: unspecified Laterality: right Patient sex: female Hypercholesterolemia E78.00 Generalized anxiety disorder F41.1 Elevated fasting glucose R73.01 Osteopenia M85.80 Family history of colon cancer Z80.0 Overweight (BMI 25.0-29.9) E66.3 Postmenopausal symptoms N95.9 Assessment & Plan Assessment & Plan (1) GERD (gastroesophageal reflux disease): Code(s): K21.9 - Gastro-esophageal reflux disease without esophagitis Category: Medical Plan: Avoid the foods that causes that usually spicy foods, tomato products, juices, coffee, soda and foods that your sensitive to. After eating do not lie down, allow 3-4 hours before in lie down. And keep the head of bed above 30 degrees to avoid the acid from going up. (2) Breast cancer: Comment: Right-w/lumpectomy Code(s): C50.919 - Malignant neoplasm of unspecified site of unspecified female breast Category: Medical Qualifiers: Breast location: unspecified site of breast Estrogen receptor status: unspecified Laterality: right Patient sex: female Qualified Code(s): C50.911 - Malignant neoplasm of unspecified site of right female breast Plan: Continue to have the mammogram as well as follow-up with Hematology-Oncology (3) Hypercholesterolemia: Code(s): E78.00 - Pure hypercholesterolemia, unspecified Category: Medical Plan: Avoid fried foods, chicken skin, eggs, butter margarine, pastries and meat. Be it pork or beef they have a lot of cholesterol on atorvastatin 10 mg once a day (4) Generalized anxiety disorder: Comment: melissa SHIP[employer] [place] therapist Q week 07/2020 Code(s): F41.1 - Generalized anxiety disorder Category: Medical Plan: Continue with counseling and therapy (5) Elevated fasting glucose: Code(s): R73.01 - Impaired fasting glucose Category: Medical Plan: Decrease the amount of carbohydrate intake, pasta, bread, rice and potatoes are all sugar and that is aside from all the sweet stuff, remember that fruits are good but they are Sweet also. (6) Osteopenia: Comment: February 2018, September Code(s): M85.80 - Other specified disorders of bone density and structure, unspecified site Category: Medical Plan: Patient is up-to-date with bone density. On alendronate (7) Family history of colon cancer: Code(s): Z80.0 - Family history of malignant neoplasm of digestive organs Category: Medical Plan: Reviewed the notes patient did see Gastroenterology in the need for having colonoscopy to be done (8) Overweight (BMI 25.0-29.9): Code(s): E66.3 - Overweight Category: Medical Plan: Diet and exercise (9) Postmenopausal symptoms: Code(s): N95.9 - Unspecified menopausal and perimenopausal disorder Category: Medical Plan History of Present Illness The patient is a 64-year-old female presenting for a follow-up visit. She has a history of breast cancer, for which she underwent a lumpectomy. Due to her history, she is advised against hormone replacement therapy as it may increase the risk of cancer recurrence. The patient also has hypercholesterolemia and is currently on atorvastatin 10 mg once daily. Her LDL cholesterol level was noted to be 62 mg/dL in the most recent blood work. She has generalized anxiety disorder and is on sertraline 150 mg daily. She con tinues with counseling and therapy as part of her management plan. The patient has a history of gastroesophageal reflux disease (GERD) and ulcerative colitis, for which she is on balsalazide. She was last seen by gastroenterology in November and has been advised to undergo a colonoscopy despite having a Cologuard test in August 2021. She reports menopausal symptoms, including hormonal imbalances, which have been challenging to manage due to her breast cancer history. She has been advised against hormone therapy and is considering alternative medications such as gabapentin to manage her symptoms. Health Maintenance - Colon cancer screening with Cologuard test in August 2021 - Bone density screening in February 2024 - Mammogram in February 2025 - Up to date with vaccinations, including flu and shingles shots Social History Review of Systems - Respiratory: Reports cough - Gastrointestinal: Reports symptoms of GERD - Neurological: Reports menopausal symptoms affecting daily life Physical Exam Results - Labs: Normal blood count, no anemia, normal electrolytes, good renal function, normal blood sugar, normal liver function, LDL 62 mg/dL, elevated B12 Plan Patient was informed and verbally consented to the use of an ambient scribe for clinic note documentation during this visit. 1. Breast Cancer The patient has a history of breast cancer treated with lumpectomy. Due to the risk of recurrence, hormone replacement therapy is contraindicated. 2. Hypercholesterolemia The patient is on atorvastatin 10 mg daily for hypercholesterolemia. Her LDL cholesterol is well-controlled at 62 mg/dL. 3. Generalized Anxiety Disorder The patient is managed with sertraline 150 mg daily and continues with counseling and therapy. 4. Gastroesophageal Reflux Disease (Gerd) The patient has GERD and is advised to continue current management strategies. 5. Ulcerative Colitis The patient is on balsalazide for ulcerative colitis and has been advised to undergo a colonoscopy. 6. Menopausal Symptoms The patient experiences menopausal symptoms and is considering gabapentin as an alternative to hormone therapy. Discussion Notes During the visit, we discussed the management of the patient's menopausal symptoms, emphasizing the contraindication of hormone therapy due to her breast cancer history. We considered gabapentin as an alternative treatment option. The importance of continuing regular screenings, including mammograms and colonoscopies, was highlighted. Patient Instructions - Continue taking atorvastatin 10 mg daily. - Follow up with gastroenterology for a colonoscopy. - Consider starting gabapentin for menopausal symptoms as discussed. - Maintain regular counseling and therapy sessions for anxiety management. - Stay up to date with preventative screenings and vaccinations. Medications: New gabapentin 300 mg PO BID 60 caps 3RF N95.9 - Unspecified menopausal and perimenopausal disorder Refilled atorvastatin 10 mg PO DAILY 90 tabs 1RF E78.00 - Pure hypercholesterolemia, unspecified
--- OUTSIDE RECORDS SUMMARY | 2025-03-31 11:12 | XMS_ITS | Patient Health Record ---
Author Organization [facility] Address [address] [place] [id number] Care Team Providers Care Quantitative Strategy Analyst Name Role Phone Po Vito PAN Primary Care Provider Jay Marks [phone] Reason For Referral No Information Medications Medication SIG (Take, Route, Frequency, Duration) Notes Start Date End Date Status MiraLax (colon prep) 17 GM/SCOOP 1 238 Gm bottle mixed with Gatorade or Crystal Light orally begin at 5:00 p.m. the day before the procedure; Duration: 1 days 11/14/2024 Active Dulcolax (colon prep) 5 MG take at 3:00 p.m and 7:00p.m. Orally two tablets twice a day for one day; Duration: 1 days 11/14/2024 Active Alendronate Sodium A ctive Multi Vitamin/Minerals Active Zolpidem Tartrate Ac tive Balsalazide Disodium 750 MG TAKE 3 CAPSU LES BY MOUTH 3 TIMES A DAY FOR 90 DAYS; Duration: 90 Active Sertraline HCl Activ e Problems Problem Type SNOMED Code ICD Code Onset Dates Problem Status W/U Status Risk Notes Problem Colon cancer screening (056155807) Colon cancer screening (Z12.11) Active confirmed Problem Diarrhea (90436246) Diarrhea (R19.7) Active con firmed Problem Gastroesophageal reflux disease (115985529) Gastroesophageal reflux disease, esophagitis presence not specified (K21.9) Active confirmed Problem Chronic ulcerative proctitis (02787723) Ulcerative proctitis, 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) Active confirmed Problem Family history of malignant neoplasm of gastrointestinal tract (651662896) Family history of colon cancer in father (Z80.0) Active confirmed Vital Signs Blood pressure diastolic 88 mm Hg 11/14/2024 Height 66 in 11/14/2024 Blood pressure systolic 111 mm Hg 11/14/2024 Weight 188 lbs 11/14/2024 BMI 30.34 kg/m2 11/14/2024 Procedures Procedure Date Ordered Date Performed Result Body Sit e COLONOSCOPY 11/14/2024 N/A Encounters Encounter Location Date Provider Diagnosis [facility] [address] [place] [address] 11/14/2024 Jay Duarte Ulcerative proctitis , without complications K51.20 ; Family history of colon cancer in father Z80.0 and Colon cancer screening Z12.11 [facility] [address] [place] [address] 02/12/2025 Jay Duarte [facility] [address] [place] [address] 11/14/2024 Jay Duarte Assessments Encounter Date Diagnosis [...] OF [place] [address] [place] [address] [phone] [id number] MELVI NEGRETE Self - patient is the insured 0 MEDICAID OF [place] [address] [place] [id number] MELVI NEGRETE Self - patient is the insured Medical (General) History Medical History History ICD Code Distal ulcerative proctitis- diagnosed with colonoscopy 06-05-2008--there were no polyps Breast cancer-see below Denies MS,DM,CVA,Lung disease,renal dise ase Depression Tendonitis bilateral shoulders [...]
--- OUTSIDE RECORDS SUMMARY | 2025-03-31 11:13 | XMS_ITS | Clinical Summary ---
Author Organization [address] [facility] Address [address] [place] [address] Phone Care Team Providers Care Elementary Math Tutor Name Role Phone Unavailable Primary Care Provider Unavailabl e Allergies No known active allergies Medications metroNIDAZOLE (FLAGYL) 500 mg tablet Take 1 tablet (500 mg total) by mouth 2 (two) times a day for 7 days. Do not use mouth wash or consume alcohol until 48 hours after last dose 14 tablet 03/28/2025 Active Encounters Date Type Department Care Team Description 03/28/2025 8:34 AM EDT - 03/28/2025 10:14 AM EDT Emergency [facility] [address] [place] [address] Acute vaginitis (Primary Dx); Trichomonal vaginitis Discharge Disposition: Home or Self Care from Last 3 Months Surgical History Surgery Date Site/Laterality Comments BREAST REDUCTION PROCEDURE: NM BREAST REDUCTION BREAST LUMPECTOMY PROCEDURE: HISTORICAL BREAST LUMPECTOMY; COMMENT: right TONSILLECTOMY ADENOIDECTOMY, BILATERAL MYRINGOTOMY AND TUBES PROCEDURE: NM TONSILLECTOMY & ADENOIDECTOMY <AGE 10 Medical History Medical History Date Comments Anxiety disorder DX:Anxiety diso rder Depression DX:Depression Cancer of breast ([facility] V24, [facility] V28) DX:Cancer of breast (HCC) History of alcohol abuse DX:Hist ory of alcohol abuse Hypercholesterolemia DX:Hypercho lesterolemia Inflammatory bowel disease DX:In flammatory bowel disease Insomnia DX:Insomnia Lymphoma ([facility] V24, [facility] V28) DX:Lymphoma (HCC) Osteoarthritis DX:Osteoarthriti s Obesity DX:Obesity Pituitary lesion ([facility] V24) D X:Pituitary lesion (HCC) Postmenopausal DX:Postmenopausa l Social History Tobacco Use [...] Mass Index 28.13 03/28/2025 8:14 AM EDT Plan of Treatment Health Maintenance Due Date Last Done Comments Breast Cancer Screening 1960 Cholesterol Screening (Lipid Panel) 05/18/2022 Hepatitis C Screening 05/18/2022 Osteoporosis Screening (Bone Density Screening) 05/18/2022 Social Influencers of Health Screening 05/18/2022 Medicare Annual Wellness Visit 08/04/2023 08/04/2022 Falls Risk Assessment 10/25/2023 Depression Screening 06/19/2024 Colorectal Cancer Screening: FIT-DNA (Cologuard) 10/22/2027 10/21/2024, 08/16/2021 DTaP,Tdap,and Td Vaccines (2 - Td or Tdap) 06/26/2031 06/26/2021 Pneumococcal Vaccine: 50+ Years Completed 09/25/2021 Zoster Vaccines Completed 09/25/2021, 06/26/2021 RSV Immunization Adult Patients Completed 02/12/2023 COVID-19 Vaccine Completed 03/19/2025, 04/2025, 01/28/2023, Additional history exists Influenza Vaccine Completed 03/19/2025, , 01/28/2023, Additional history exists HIB Vaccines Aged Out No longer eligi [...] on patient's age to complete this topic Procedures Procedure Name Priority Date/Time Associated Diagnosis Comments TRICHOMONAS VAGINALIS ANTIGEN STAT 03/28/2025 8:46 AM EDT WET PREP, GENITAL STAT 03/28/2025 8:4 6 AM EDT CHLAMYDIA TRACHOMATIS AND NEISSERIA GONORRHOEAE PCR STAT 03/28/2025 8:45 AM EDT MEAD URINE CULTURE TUBE STAT 03/28/2025 8:43 AM EDT URINALYSIS WITH REFLEX MICROSCOPIC AND CULTURE STAT 03/28/2025 8:43 AM EDT URINALYSIS WITH REFLEX MICROSCOPIC AND CULTURE STAT 03/28/2025 8:43 AM EDT from Last 3 Months Results * Trichomonas vaginalis antigen (03/28/2025 8:46 AM EDT) Trichomonas vaginalis Negative Negative 03/28/2025 9:53 AM EDT [facility] Vaginal Fluid Vaginal structure / Unknown Non-blood Collection / Unknown 03/28/2025 8:46 AM EDT 03/28/2025 9:01 AM EDT [facility] MICROBIOLOGY - GENER AL ORDERABLES Final Result Performing Organization Address [facility]/ZIP Co de Phone Number [facility] [address] [place] [address], [place] [phone] * Wet prep, genital (03/28/2025 8:46 AM EDT) Clue Cells, Wet Prep Negative Negative 03/28/2025 9:37 AM EDT [facility] Yeast, Wet Prep Negative Negative 03/28/2025 9:37 AM EDT [facility] Trichomonas, Wet Prep Indeterminate Negative 03/28/2025 9:37 AM EDT [facility] Comment:Refer to Trichomonas antigen. Vaginal Fluid Vaginal structure / Unknown Non-blood Collection / Unknown 03/28/2025 8:46 AM EDT 03/28/2025 9:01 AM EDT [facility] MICROBIOLOGY - GENER AL ORDERABLES Final Result Performing Organization Address [facility] Co de Phone Number [facility] [address] [place] [address], [place] [phone] * Chlamydia trachomatis and Neisseria gonorrhoeae molecular study (03/28/2025 8:45 AM EDT) Neisseria gonorrhoeae PCR Negative Negative LAB MOLECULAR DIAGNOSTICS METHOD 03/28/2025 11:56 AM EDT [facility] Chlamydia trachomatis PCR Negative Negative LAB MOLECULAR DIAGNOSTICS METHOD 03/28/2025 11:56 AM EDT [facility] Swab Vaginal structure / Unknown Non-blood Collection / Unknown 03/28/2025 8:45 AM EDT 03/28/2025 9:01 AM EDT us [facility] MICROBIOLOGY - GENER AL ORDERABLES Final Result [facility] [address] [place] [address], [place] [phone] * Urinalysis with reflex microscopic and culture (03/28/2025 8:43 AM EDT) Specific [place] Urine 1.006 1.003 - 1.030 LAB URINALYSIS - AUTOMATED METHOD 03/28/2025 9:16 AM [facility] pH, Urine 7.5 5.0 - 8.0 pH LAB URINALYSIS - AUTOMATED METHOD 03/28/2025 9:16 AM [facility] Leukocytes, Urine Negative Negative LAB URINALYSIS - AUTOMATED METHOD 03/28/2025 9:16 AM [facility] Nitrite, Urine Negative Negative LAB URINALYSIS - AUTOMATED METHOD 03/28/2025 9:16 AM [facility] Protein, Urine Negative <=Trace mg/dL LAB URINALYSIS - AUTOMATED METHOD 03/28/2025 9:16 AM [facility] Glucose, Urine Negative Negative mg/dL LAB URINALYSIS - AUTOMATED METHOD 03/28/2025 9:16 AM [facility] Ketones, Urine Negative Negative mg/dL LAB URINALYSIS - AUTOMATED METHOD 03/28/2025 9:16 AM [facility] Urobilinogen, Urine 0.2 0.2 - 1.0 mg/dL LAB URINALYSIS - AUTOMATED METHOD 03/28/2025 9:16 AM [facility] Bilirubin, Urine Negative Negative LAB URINALYSIS - AUTOMATED METHOD 03/28/2025 9:16 AM [facility] Blood, Urine Negative Negative LAB URINALYSIS - AUTOMATED METHOD 03/28/2025 9:16 AM [facility] Urine Urine specimen obtained by clean catch procedure / Unknown Non-blood Collection / Unknown 03/28/2025 8:43 AM EDT 03/28/2025 9:01 AM EDT [facility] URINE ORDERABLES Fin al Result Performing Organization Address [facility] Co de Phone Number [facility] [address] [place] [address], [place] [phone] * Mead urine culture tube (03/28/2025 8:43 AM EDT) Extra Tube Hold for add-ons. 03/28/2025 11:01 AM EDT [facility] Comment:Auto resulted. Urine Urine specimen obtained by clean catch procedure / Unknown Non-blood Collection / Unknown 03/28/2025 8:43 AM EDT 03/28/2025 9:01 AM EDT [facility] URINE ORDERABLES Fin al Result Performing Organization Address [facility] de Phone Number [facility] [address] [place] [address], [place] [phone] from Last 3 Months Insurance MEDICARE [place] - [place]
--- OUTSIDE RECORDS SUMMARY | 2025-03-31 11:13 | XMS_ITS | Patient Health Record ---
Author Organization Jay Lorenz III, MD Address [address] [place] [address] [place] [address] Care Team Providers Care Mud Cleaner Operator Name Role Phone Liliya Hsieh MD [...] Problem Status W/U Status Risk Notes Problem 8389189 Former smoker (Z87.891) Active confirmed She is not currently smoking and seems motivated not to smoke. I have discussed with her several strategies for maintenance of abstinence in times of stress and illness. Problem 931443099 Overweight (BMI 25.0-29.9) (E66.3) Active confirmed Her body mass index is 29. She has recently lost weight and is no longer obese. We reviewed her diet and nutrition. I recommended continued weight loss until the body mass index is in the normal range. Problem 23117188 Depression (F32.9) Active confirmed Her chronic depression is stable and not worse. She will continue her current regimen. Problem Diffuse large B- cell lymphoma, lymph nodes of head, face, and neck (C83.31) Active confirmed There was no sign on the exam or in the vital signs of recurrence. Comprehensive blood work has been ordered. Problem 489353067 Hyperprolactinem ia (E22.1) Active confirmed The prolactin level is now 14, in the normal range. Problem 700448175 Pituitary tumor (D49.7) Active confirmed An MRI of the brain including the pituitary gland has been requested. If necessary a prolactin level will be obtained. Problem 26325996 Uterine fibroid (D25.9) Active confirmed She had no new complaints about uterine fibroids today. She is under the care of [facility] and primary care. Problem 05236012 Chronic colitis (K52.9) Active confirmed She says is probably stable and she has occasional diarrhea but is not impaired in the activities of daily living. Problem 336977191 Lobular carcinom a in situ (D05.00) Active [...] Date Provider Diagnosis Jay Lorenz III, MD [address] [place] [address] DR [place], [place]ORDAN [address] 10/11/2024 Jay Lorenz Diffuse large B-cell lymphoma, [...] NGS [address] [place] [address] [id number] Jackeline Matthew Self - patient is the insured MED[place] [address] [place], [place] [id number] Jackeline Matthew Self - patient is the insured Medical (General) History Medical History History ICD Code lobular carcinoma in situ by biospy Apr, at [facility] active chronic colitis by re ctal [...]
--- OUTSIDE RECORDS SUMMARY | 2025-03-31 11:14 | XMS_ITS | Patient Health Record ---
Author Organization [facility] Address [address] [place] [address] Care Team Providers Care Staff Pharmacist Name Role Phone ARACELIS HSIEH M.D.[facility] Primary Care Provider Unavaila Vania Carreon Unavailable [phone] Reason For Referral No Information Plan Of Treatment No Information Insurance Providers Payer Name Payer Address Payer Phone Subscriber Number Group Number Insured Name Patient Relationship to Insured Coverage Start Date Coverage End Date [facility] [address] [address] [place] [address] [id number] MELVI NEGRETE Self - patient is the insured
== END 2025-03-31 18:30 | disposition home or self-care (01) ==
LOC: HO.HMCH 11:08
PROVIDERS: PCP Internal Medicine; Visit Provider Internal Medicine
DX: K21.9 Gastro-esophageal reflux disease without esophagitis (principal); C50.911 Malignant neoplasm of unspecified site of right female breast; E78.00 Pure hypercholesterolemia, unspecified; F41.1 Generalized anxiety disorder; R73.01 Impaired fasting glucose; M85.80 Other specified disorders of bone density and structure, unspecified site; Z80.0 Family history of malignant neoplasm of digestive organs; E66.3 Overweight; N95.9 Unspecified menopausal and perimenopausal disorder

== ENCOUNTER → 2025-03-31 11:07 | Outpatient (BNVA) | payer MEDICARE, MEDICAID, SELFPAY | PROVIDERS: PCP Internal Medicine; Visit Provider Internal Medicine | DX: K21.9 Gastro-esophageal reflux disease without esophagitis (principal); C50.911 Malignant neoplasm of unspecified site of right female breast; E78.00 Pure hypercholesterolemia, unspecified; F41.1 Generalized anxiety disorder; R73.01 Impaired fasting glucose; M85.80 Other specified disorders of bone density and structure, unspecified site; E66.3 Overweight; N95.9 Unspecified menopausal and perimenopausal disorder; K51.90 Ulcerative colitis, unspecified, without complications; Z80.0 Family history of malignant neoplasm of digestive organs | CPT/HCPCS: 99212 ==

== ENCOUNTER 2025-04-16 10:42 | Outpatient (REF) | payer MEDICARE, MEDICAID, SELFPAY ==
--- OUTSIDE RECORDS SUMMARY | 2024-01-24 12:05 | XMS_ITS ---
Author Organization Jya Lorenz III, MD Address [address] [place] [address] [place] [address] Care Team Providers Care Specimen Preparation Assistant Name Role Phone Liliya Santiago MD Primary Care Provider Dr. Jay Jimenez III Unavailable [phone] REASON FOR VISIT Needs call back from Social History Sex Assigned At : Social History Observation Description Sex Assigned At Female Encounters Encounter Location Date Provider Diagnosis Jay Lorenz III, MD [address] [place] [address] [place] [address] 01/24/2024 Jay Lorenz Plan Of Treatment No Information Progress Notes * Jewel MATTHEW:1960 (63 yo F)Acc No.[id number]:01/24/2024 Patient: Jackeline Rodrigues :1960 A ge:63 Y S ex:Female Address:[address] [place] [phone] * true * Date: Generated for Printi ng/Faxing/eTransmitting on: 1 01:22 PM EDT
--- OUTSIDE RECORDS SUMMARY | 2024-08-14 13:15 | XMS_ITS ---
Author Organization Jay Lorenz III, MD Address [address] [place] [address] [place] [address] Care Team Providers Care Maintenance Clerk Name Role Phone Liliya Hsieh MD Primary Care Provider Dr. Jay Jimenez III [facility] REASON FOR VISIT follow up Social History Sex Assigned At : Social History Observation Description Sex Assigned At Female Encounters Encounter Location Date Provider Diagnosis Jay Lorenz III, MD [address] [place] [address] [place] [address] 08/14/2024 Jay Lorenz Plan Of Treatment No Information Progress Notes * Alex MATTHEWB:1960 (64 yo F)Acc No.[id number]:08/14/2024 Progress Notes Patient: Jackeline CHOU Provider: Hosea Lorenz MD :1960 A ge:63 Y S ex:Female Date:08/14/2024 Address:[address] [place], [place] [id number] Pcp:Liliya Hsieh MD Subjective: * Chief Complaints: * 1 . Follow up. * Medical History: Objective: * Vitals: Assessment: Plan: * Treatment: * Images: * The named appointment provid er may or may not be the originator of this progress note, and it is not deemed complete until electronically signed by the appointment provider. Sign off status: Pending * Provider: Hosea Lorenz MD Date: 0 08/14/2024 Generated for John blackwood/Lavell/Demetri on: 1 01:23 PM EDT
--- OUTSIDE RECORDS SUMMARY | 2024-09-09 05:45 | XMS_ITS ---
Author Organization Jay Lorenz III, MD Address [address] [address] Care Team Providers Care Mines Inspector Name Role Phone Po Liliya PAN Primary Care Provider Dr. Jay Jimenez III Unavailable Allergies Allergen (clinical drug ingredient) Drug/Non Drug Allergy documented on EMR Reaction Allergy Type Onset Date Status No Known Drug Allergy Unknown Drug Allergy Active REASON FOR VISIT follow up Medications Medication SIG (Take, Route, Frequency, Duration) Notes Start Date End Date Status oxyCODONE-Acetaminophen 5-325 MG Oral PRN Active Alendronate Sodium 70 MG Oral Active Lidocaine 5 % External Active Trulicity 0.75 MG/0.5ML Subcutaneous Active buPROPion HCl 100 MG Oral Active ALPRAZolam 0.25 MG Oral PRN A ctive Sertraline HCl 100 MG Oral Active busPIRone HCl 5 MG Oral A ctive Mirtazapine 15 MG Oral Ac tive Balsalazide Disodium 750 MG Oral Active Topiramate 25 MG TAKE 1 TABLET BY [facility] TH EVERY DAY Oral Active Zolpidem Tartrate 10 MG Oral PRN Active Social History Tobacco Use: Social History Observation Description Date Details (start date - stop date) Former Smoker NA - NA Sex Assigned At : Social History Observation Description Sex Assigned At Female Tobacco Use/Smoking Question Answer Notes Patient is a former smoker How long has it been since you last smoked? > 10 years Additional Findings: Tobacco Non-User Ex-cigaret te smoker Encounters Encounter Location Date Provider Diagnosis Jay Lorenz III, MD [address] [place] [address] [place] [address] 09/09/2024 Jay Lorenz Plan Of Treatment Medication Medication Name Sig Start Date Stop Date Notes oxyCODONE-Acetaminophen 5-32 5 MG Oral PRN Alendronate Sodium 70 MG Oral Lidocaine 5 % External Trulicity 0.75 MG/0.5ML Subcutaneous buPROPion HCl 100 MG Oral ALPRAZolam 0.25 MG Oral PRN Sertraline HCl 100 MG Oral busPIRone HCl 5 MG Oral Mirtazapine 15 MG Oral Balsalazide Disodium 750 MG Oral Topiramate 25 MG TAKE 1 TABLET BY [place]INT[place] EVERY DAY Oral Zolpidem Tartrate 10 MG Oral P RN Progress Notes * Lorna MATTHEWaDOB:1960 (64 yo F)Acc No.[id number]:09/09/2024 Progress Notes Patient: Jackeline CHOU Provider: Hosea Lorenz MD :1960 A ge:63 Y S ex:Female Date:09/09/2024 Address:[address] [place] [phone] Pcp:Liliya Santiago MD Subjective: * Chief Complaints: * 1 . Follow up. * HPI: C OVID-19 Screening: Questions H ave you had any new onset fever, chills, cough, congestion, sore throat, shortness of breath, muscle aches? N o * ROS: G eneral/Constitutional: pain o nly normal aches and pains. C hills d enies.?Fatigue a dmits. F ever d enies. E NT: Decreased hearing d enies. R espiratory: Cough d enies. C ardiovascular: Chest pain with exertion d enies. D yspnea on exertion?denies. S hortness of breath d enies. G astrointestinal: Constipation d enies. D ecreased appetite d enies.?Diarrhea d enies. H eartburn d enies. N ausea d enies. R ectal bleeding?denies. V omiting d enies. H ematology: bruising d enies. p etechiae d enies. S wollen glands n one have been noted. G enitourinary: Frequent urination d enies. M usculoskeletal: Muscle aches d enies. P ainful joints d enies. S ciatica d enies. W eakness d enies. S kin: Itching d enies. R nighat d enies. S kin lesion(s)?denies. N eurologic: Difficulty speaking d enies. D izziness d enies.?Headache d enies. L ow back pain d enies. P sychiatric: Depressed mood d enies. * Medical History: l obular carcinoma in situ by biospy September, at [facility], active chronic colitis by rectal biospy by Dr. Jay Duarte on May, History of rectal fistula in the past, reduction mammoplasty September 2004, Depression, Macromastia, Chronic active colitis 2007, Diverticulosis, Hemorrhoids, Proctitis 2007 with bleeding, Cutaneous sinus, excised, right thigh, Uterine fibroids, Lymphocytosis, elevated prolactin level March 30, 2004 35.7(2.8-26.7), Last mammogram 07/10/2012. * Surgical History: r eduction mammoplasty 09/2004, tonsillectomy , colonoscopy 2007, excision sinus right thigh , negative cystoscopy for bladder pain 05/2012, biopsy vertex of the skull 2012. * Hospitalization/Major Diagno stic Procedure: D enies Past Hospitalization. * Family History: F ather: , Colon cancer 1970, diagnosed with Cancer. M other: 92 yrs, tia, lymphoma. 7 brother(s) , 1 sister(s) . . Her father had colon cancer. Her mother has a history of TIA and stroke. Her mother has a history of lymphoma. Sister had a heart attack. * Social History: T obacco Use: T obacco Use/Smoking P atient is a f ormer smoker H ow long has it been since you last smoked??> 10 years A dditional Findings: Tobacco Non-User E x-cigarette smoker S he was born in [place]. She is single. She has one son. 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 She does not drink or smoke. * Medications: T aking buPROPion HCl 100 MG Tablet Oral , Taking Trulicity 0.75 MG/0.5ML Solution Pen-injector Subcutaneous , Taking Lidocaine 5 % Patch External , Taking Alendronate Sodium 70 MG Tablet Oral , Taking oxyCODONE-Acetaminophen 5-325 MG Tablet Oral , Notes to Pharmacist: PRN, Taking Zolpidem Tartrate 10 MG Tablet Oral , Notes to Pharmacist: PRN, Taking Topiramate 25 MG Tablet TAKE 1 TABLET BY MOUTH EVERY DAY Oral , Taking Balsalazide Disodium 750 MG Capsule Oral , Taking Mirtazapine 15 MG Tablet Oral , Taking busPIRone HCl 5 MG Tablet Oral , Taking Sertraline HCl 100 MG Tablet Oral , Taking ALPRAZolam 0.25 MG Tablet Oral , Notes to Pharmacist: PRN, Medication List reviewed and reconciled with the patient * Allergies: N o Known Drug Allergy. Objective: * Vitals: * Examination: G eneral Examination: GENERAL APPEARANCE: p leasant, well nourished, well developed, in no acute distress, calm and relaxed. HEAD: a traumatic, normocephalic. EYES: e ashish, perrla, anicteric, conjugate. EARS: n ormal. NOSE: s eptum intact. ORAL CAVITY: n ormal, unremarkable. NECK/THYROID: n o jugular venous distention, no carotid bruit, thyroid normal. LYMPH NODES: n o enlarged lymph nodes,spleen normal. SKIN: n o suspicious lesions, anicteric. HEART: n o clicks, gallops, murmurs, or rubs, regular rhythm, S1, S2 normal, no s3, or vascular bruits. LUNGS: c lear to auscultation . BREASTS: no masses palpable bilaterally. ABDOMEN: b owel sounds normal, no ascites, no organomegaly, no mass. RECTAL EXAM: n ot examined. MUSCULOSKELETAL: e xtremities unremarkable, no clubbing, cyanosis or edema. PERIPHERAL PULSES: n ormal. NEUROLOGIC: a lert and oriented, cranial nerves 2-12 grossly intact, deep tendon reflexes 2+ symmetrical, motor strength normal upper and lower extremities, sensory exam intact. PSYCH: a lert, oriented. Assessment: Plan: * Treatment: * Images: * The named appointment provid er may or may not be the originator of this progress note, and it is not deemed complete until electronically signed by the appointment provider. Sign off status: Pending * Provider: Hosea Lorenz MD Date: 0 09/09/2024 Generated for John blackwood/Lavell/Maryitting on: 01:22 PM EDT History and Physical Notes * HPI (History of Present Illness) Category Sub-Category Detail Notes COVID-19 Screening Questions Have you had any new onset fever, chills, cough, congestion, sore throat, shortness of breath, muscle aches?: No Examination Category Sub-Category Detail Notes General Examination GENERAL APPEARANCE: pleasant , well nourished, well developed, in no acute distress, calm and relaxed HEAD: atraumatic, normocep halic EYES: eomi, perrla, anicte rabia, conjugate EARS: normal NOSE: septum intact NECK/THYROID: no jugular venous di stention, no carotid bruit, thyroid normal HEART: no clicks, gallops, murmurs, or rubs, regular rhythm, S1, S2 normal, no s3, or vascular bruits LUNGS: clear to auscultatio n ABDOMEN: bowel sounds normal, no ascites, no organomegaly, no mass NEUROLOGIC: alert and oriented, cranial nerves 2-12 grossly intact, deep tendon reflexes 2+ symmetrical, motor strength normal upper and lower extremities, sensory exam intact SKIN: no suspicious lesion s, anicteric PERIPHERAL PULSES: normal BREASTS: no masses palpable b ilaterally MUSCULOSKELETAL: extremities unremark able, no clubbing, cyanosis or edema LYMPH NODES: no enlarged lymph no belén,spleen normal RECTAL EXAM: not examined PSYCH: alert, oriented ORAL CAVITY: normal, unremarkable
--- OUTSIDE RECORDS SUMMARY | 2024-10-11 06:30 | XMS_ITS ---
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 Jay Jimenez III Unavailable [phone] Allergies Allergen (clinical drug ingredient) Drug/Non Drug [...] Date Provider Diagnosis Jay Lorenz III, MD [address] [place] [address] [address] [place], [place] [phone] 10/11/2024 Jay Lorenz Diffuse large B-cell lymphoma, [...] Notes * Lorna MATTHEWaDOB:1960 (63 yo F)Acc No.[id number]:10/11/2024 Progress Notes Patient: Jackeline CHOU Provider: Hosea Lorenz MD :1960 A ge:63 Y S ex:Female Date:10/11/2024 Address:[address] [place] [phone] Pcp:Liliya Santiago MD Subjective: * Chief Complaints: [...] x-cigarette smoker S he was born in [place]. She is single. She has one son. [...] true * Provider: Hosea Lorenz MD Date: 0 10/11/2024 Generated for John blackwood/Lavell/Maryitting on: 1 01:22 PM EDT History and Physical Notes [...]
--- OUTSIDE RECORDS SUMMARY | 2025-02-14 06:30 | XMS_ITS ---
Author Organization [facility] Address [address] [place] [address] Care Team Providers Care Copy Director Name Role Phone Vito Santiago MD Primary Care Provider Unavailabl Jay Crespo [phone] REASON FOR VISIT ulcerative colitis,fam hx colon ca,screening Encounters Encounter Location Date Provider Diagnosis [facility] [place] [address] [place], [place] [phone] 02/14/2025 Jay Duarte Plan Of Treatment No Information Progress Notes * ONEIL NEGRETEADOB:1960 (64 yo F)Acc No.[id number]:02/14/2025 COLON WITH MAC Patient: MELVI CHOU Provider: Hosea Duarte MD :1960 A ge:64 Y S ex:Female Date:02/14/2025 Address:[address] [place], [place] [phone] Pcp:Vito Santiago MD Subjective: * Chief Complaints: [...] 0 02/14/2025 Generated for John blackwood/Lavell/Maryitting on: 01:22 PM EDT
[2025-04-16 12:04] LABS: Hemoglobin A1C 89.7043 umol/L
--- OUTSIDE RECORDS SUMMARY | 2025-04-16 13:23 | XMS_ITS | Patient Health Record ---
Author Organization [facility] Address [address] [place] [address] Care Team Providers Care Reflesher Name Role Phone ARACELIS HSIEH M.D.[facility] Primary Care Provider Unavaila Vania Carreon Unavailable [phone] Reason For Referral No Information Plan Of Treatment No Information Insurance Providers Payer Name Payer Address Payer Phone Subscriber Number Group Number Insured Name Patient Relationship to Insured Coverage Start Date Coverage End Date [facility] [address] [address] [place] [address] [id number] MELVI NEGRETE Self - patient is the insured
--- OUTSIDE RECORDS SUMMARY | 2025-04-16 13:23 | XMS_ITS | Patient Health Record ---
Author Organization [facility] Address [address] [place] [address] Care Team Providers Care Thread Drawer Name Role Phone Po Vito PAN Primary Care Provider Jay Marks [phone] Reason For Referral No Information Medications Medication [...] Status Risk Notes Problem Colon cancer screening (469503177) Colon cancer screening (Z12.11) Active confirmed Problem Diarrhea (42223257) Diarrhea (R19.7) Active con firmed Problem Gastroesophageal reflux disease (811967085) Gastroesophageal reflux disease, esophagitis presence not specified (K21.9) Active confirmed Problem 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) Ulcerative proctitis, 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) Active confirmed Problem Family history of malignant neoplasm of gastrointestinal tract (864734318) Family history of colon cancer in father (Z80.0) Active confirmed Vital Signs Blood pressure diastolic 88 mm Hg 11/14/2024 Height 66 in 11/14/2024 Blood pressure systolic 111 mm Hg 11/14/2024 Weight 188 lbs 11/14/2024 BMI 30.34 kg/m2 11/14/2024 Procedures Procedure Date Ordered Date Performed Result Body Sit e COLONOSCOPY 11/14/2024 N/A Encounters Encounter Location Date Provider Diagnosis [facility] [address] [place] [address] 11/14/2024 Jay Duarte Ulcerative proctitis , without complications K51.20 ; Family history of colon cancer in father Z80.0 and Colon cancer screening Z12.11 [facility] [address] [place] [address] 11/14/2024 Jay Duarte [facility] [address] [place] [address] 02/12/2025 Jay Duarte Assessments Encounter Date Diagnosis (ICD [...] OF [place] [address] [place] [address] [id number] MELVI NEGRETE Self - patient is the insured 0 MEDICAID OF [employer] [address] [place] [id number] MELVI NEGRETE Self - patient is the insured Medical (General) History Medical History History ICD Code Distal ulcerative proctitis- diagnosed with colonoscopy 06-05-2008--there were no polyps Breast cancer-see below Denies AR,DM,CVA,Lung disease,renal dise ase Depression Tendonitis bilateral shoulders [...]
--- OUTSIDE RECORDS SUMMARY | 2025-04-16 13:23 | XMS_ITS | Patient Health Record ---
Author Organization Jay Lorenz III, MD Address [address] [place] [address] [place] [address] Care Team Providers Care Logging Assistant Name Role Phone Liliya Hsieh MD Primary Care Provider Dr. Jay Jimenez III Unavailable [phone] Allergies Allergen (clinical drug ingredient) Drug/Non Drug [...] Problem Status W/U Status Risk Notes Problem 8048363 Former smoker (Z87.891) Active confirmed She is not currently smoking and seems motivated not to smoke. I have discussed with her several strategies for maintenance of abstinence in times of stress and illness. Problem 422558758 Overweight (BMI 25.0-29.9) (E66.3) Active confirmed Her body mass index is 29. She has recently lost weight and is no longer obese. We reviewed her diet and nutrition. I recommended continued weight loss until the body mass index is in the normal range. Problem 82156359 Depression (F32.9) Active confirmed Her chronic depression is stable and not worse. She will continue her current regimen. Problem Diffuse large B- cell lymphoma, lymph nodes of head, face, and neck (C83.31) Active confirmed There was no sign on the exam or in the vital signs of recurrence. Comprehensive blood work has been ordered. Problem 445364932 Hyperprolactinem ia (E22.1) Active confirmed The prolactin level is now 14, in the normal range. Problem 176353874 Pituitary tumor (D49.7) Active confirmed An MRI of the brain including the pituitary gland has been requested. If necessary a prolactin level will be obtained. Problem 32301990 Uterine fibroid (D25.9) Active confirmed She had no new complaints about uterine fibroids today. She is under the care of [facility] and primary care. Problem 14491004 Chronic colitis (K52.9) Active confirmed She says is probably stable and she has occasional diarrhea but is not impaired in the activities of daily living. Problem 960138298 Lobular carcinom a in situ (D05.00) Active confirmed There is no sign of recurrent malignancy today. Vital Signs Heart Rate 61 /min 10/11/2024 Temperature 97.2 degrees Fahrenheit 10/11/2024 Blood pressure diastolic 80 mm Hg 10/11/2024 Height 67 in 10/11/2024 Blood pressure systolic 134 mm Hg 10/11/2024 Weight 188 lbs 10/11/2024 BMI 29.44 kg/m2 10/11/2024 Encounters Encounter Location Date Provider Diagnosis Jay Lornez III, MD [address] [place] [address] DR POOLE, JORDAN [address] 10/11/2024 Jay Lorenz Diffuse large B-cell lymphoma, [...] NGS [address] [place] [address] [id number] Jackeline Matthew Self - patient is the insured [place] [address] [place], [place] [id number] Jackeline Matthew Self - patient is the insured Medical (General) History Medical History History ICD Code lobular carcinoma in situ by biospy Apr, at [facility] active chronic colitis by re ctal [...]
--- OUTSIDE RECORDS SUMMARY | 2025-04-16 13:23 | XMS_ITS | Patient Health Record ---
Author Organization [facility] Address [address] [place] [address] Care Team Providers Care Ferry Captain Name Role Phone HENOK CHANDLER Unavailable [phone] Allergies No Known Allergies Reason For Referral [...] Notes Problem Obesity due to excess calories (197110311) Other obesity due to excess calories (E66.09) Active confirmed Problem Age-related osteoporosis (863867848) Age-related osteoporosis without current pathological fracture (M81.0) Active confirmed Problem Anxiety (95624008) Anxiety (F41.9) Active confirmed Problem Body mass index 30.00 to 34.99 (832730998264184 ) Body mass index [BMI] 33.0-33.9, adult (Z68.33) Active confirmed Problem Body mass index 30.00 to 34.99 (330586105687884 ) BMI 31.0-31.9,adult (Z68.31) Active confirmed Plan Of Treatment No Information Insurance Providers Payer Name Payer Address Payer Phone Subscriber Number Group Number Insured Name Patient Relationship to Insured Coverage Start Date Coverage End Date Medicare Part B J14 [address] [facility] [place] [address] [id number] Jackeline Matthew Self - patient is the insured 0 Medical (General) History Medical History History ICD Code cancer headache Arthritis anxiety depression lymphoma Surgical History Surgery Date(Month/Year) Lymphoma removed Hospitalization History Reason Date(Month/Year) Cancer
--- OUTSIDE RECORDS SUMMARY | 2025-04-16 13:23 | XMS_ITS | Clinical Summary ---
Author Organization [facility] Address [address] [place] [address] Phone Care Team Providers Care Agricultural Scientist Name Role Phone Mike Rodney MD Primary Care Provider [phone] Allergies No known active allergies Medications metroNIDAZOLE (FLAGYL) 500 mg tablet Take 1 tablet (500 mg total) by mouth 2 (two) times a day for 7 days. Do not use mouth wash or consume alcohol until 48 hours after last dose 14 tablet 03/28/2025 04/04/20 25 Encounters Date Type Department Care Team Description 03/28/2025 8:34 AM EDT - 03/28/2025 10:14 AM EDT Emergency [facility] Emergency [address] [place] [address] Acute vaginitis (Primary Dx); Trichomonal vaginitis Discharge Disposition: Home or Self Care from Last 3 Months Surgical History Surgery Date Site/Laterality Comments BREAST REDUCTION PROCEDURE: IN BREAST REDUCTION BREAST LUMPECTOMY PROCEDURE: HISTORICAL BREAST LUMPECTOMY; COMMENT: right TONSILLECTOMY ADENOIDECTOMY, BILATERAL MYRINGOTOMY AND TUBES PROCEDURE: IN TONSILLECTOMY & ADENOIDECTOMY <AGE 10 Medical History Medical History Date Comments Anxiety disorder DX:Anxiety diso rder Depression DX:Depression Cancer of breast ([facility] V24, [facility] V28) DX:Cancer of breast (HCC) History of alcohol abuse DX:Hist ory of alcohol abuse Hypercholesterolemia DX:Hypercho lesterolemia Inflammatory bowel disease DX:In flammatory bowel disease Insomnia DX:Insomnia Lymphoma ([facility] V24, [facility] V28) DX:Lymphoma (HCC) Osteoarthritis DX:Osteoarthriti s Obesity DX:Obesity Pituitary lesion (CMS/HCC V24) D X:Pituitary lesion (HCC) Postmenopausal DX:Postmenopausa [...] 03/28/2025 8:14 AM EDT Plan of Treatment Upcoming Encounters Date Type Department Care Team (Late st Contact Info) Description 06/10/2025 1:00 PM EST Office Visit Internal Medicine - [address] [place] [address] Mike Rodney MD [address] [place] [address] Health Maintenance Due Date Last Done Comments [...] vaginalis Negative Negative 03/28/2025 9:53 AM EDT [facility] Vaginal Fluid Vaginal structure / Unknown Non-blood Collection / Unknown 03/28/2025 8:46 AM EDT 03/28/2025 9:01 AM EDT [facility] MICROBIOLOGY - GENER AL ORDERABLES Final Result Performing Organization Address City/[facility]/ZIP Co de Phone Number [facility] [address] [place] [address], [place] [phone] * Wet prep, genital (03/28/2025 8:46 AM EDT) Clue Cells, Wet Prep Negative Negative 03/28/2025 9:37 AM EDT [facility] Yeast, Wet Prep Negative Negative 03/28/2025 9:37 AM EDT [facility] Trichomonas, Wet Prep Indeterminate Negative 03/28/2025 9:37 AM EDT [facility] Comment:Refer to Trichomonas antigen. Vaginal Fluid Vaginal structure / Unknown Non-blood Collection / Unknown 03/28/2025 8:46 AM EDT 03/28/2025 9:01 AM EDT [facility] MICROBIOLOGY - GENER AL ORDERABLES Final Result Performing Organization Address City/[facility]/ZIP Co de Phone Number [facility] [address] [place] [address], [place] [phone] * Chlamydia trachomatis and Neisseria gonorrhoeae molecular study (03/28/2025 8:45 AM EDT) Neisseria gonorrhoeae PCR Negative Negative LAB MOLECULAR DIAGNOSTICS METHOD 03/28/2025 11:56 AM EDT [facility] Chlamydia trachomatis PCR Negative Negative LAB MOLECULAR DIAGNOSTICS METHOD 03/28/2025 11:56 AM [facility] Swab Vaginal structure / Unknown Non-blood Collection / Unknown 03/28/2025 8:45 AM EDT 03/28/2025 9:01 AM EDT us [facility] MICROBIOLOGY - GENER AL ORDERABLES Final Result [facility] [address] [place] [address], [place] [phone] * Urinalysis with reflex microscopic and culture (03/28/2025 8:43 AM EDT) Specific [place] Urine 1.006 1.003 - 1.030 LAB URINALYSIS - AUTOMATED METHOD 03/28/2025 9:16 AM [facility] pH, Urine 7.5 5.0 - 8.0 pH LAB URINALYSIS - AUTOMATED METHOD 03/28/2025 9:16 AM [facility] Leukocytes, Urine Negative Negative LAB URINALYSIS - AUTOMATED METHOD 03/28/2025 9:16 AM [facility] Nitrite, Urine Negative Negative LAB URINALYSIS - AUTOMATED METHOD 03/28/2025 9:16 AM [facility] Protein, Urine Negative <=Trace mg/dL LAB URINALYSIS - AUTOMATED METHOD 03/28/2025 9:16 AM [facility] Glucose, Urine Negative Negative mg/dL LAB URINALYSIS - AUTOMATED METHOD 03/28/2025 9:16 AM [facility] Ketones, Urine Negative Negative mg/dL LAB URINALYSIS - AUTOMATED METHOD 03/28/2025 9:16 AM [facility] Urobilinogen, Urine 0.2 0.2 - 1.0 mg/dL LAB URINALYSIS - AUTOMATED METHOD 03/28/2025 9:16 AM EDT [facility] Bilirubin, Urine Negative Negative LAB URINALYSIS - AUTOMATED METHOD 03/28/2025 9:16 AM EDT [facility] Blood, Urine Negative Negative LAB URINALYSIS - AUTOMATED METHOD 03/28/2025 9:16 AM EDT [facility] Urine Urine specimen obtained by clean catch procedure / Unknown Non-blood Collection / Unknown 03/28/2025 8:43 AM EDT 03/28/2025 9:01 AM EDT [facility] URINE ORDERABLES Fin al Result Performing Organization Address [facility]/ZIP Co de Phone Number [facility] [address] [place] [address], [place] [phone] * Mead urine culture tube (03/28/2025 8:43 AM EDT) Extra Tube Hold for add-ons. 03/28/2025 11:01 AM EDT [facility] Comment:Auto resulted. Urine Urine specimen obtained by clean catch procedure / Unknown Non-blood Collection / Unknown 03/28/2025 8:43 AM EDT 03/28/2025 9:01 AM EDT [facility] URINE ORDERABLES Fin al Result [facility] [address] [place] [address], [place] [phone] from Last 3 Months Insurance MEDICARE [place]ICAID - [place] Care Teams Agricultural Scientist Relationship Specialty Start Date End Date Mike Rodney MD [address] [place] [phone] PCP - General Internal Medicine 04/04/25
== END 2025-04-16 10:43 | disposition home or self-care (01) ==
LOC: HO.LAB 10:42
PROVIDERS: PCP Internal Medicine; Visit Provider Internal Medicine
DX: R73.01 Impaired fasting glucose (principal)
CPT/HCPCS: 36415; 83036

== ENCOUNTER 2025-04-17 09:29 | Outpatient (REF) | payer MEDICARE, MEDICAID, SELFPAY ==
--- NOTE | ~2025-04-17 | XR_ITS ---
EXAMINATION: XR ABDOMEN COMPLETE CLINICAL INDICATION: N89.8 - Other specified noninflammatory disorders of vagina COMPARISON: Correlated to CT dated October 23, 2012 TECHNIQUE: AP views in supine and upright position of the abdomen. FINDINGS: There is gas throughout intestine. No intestinal dilatation. No air-fluid levels. No free air beneath the diaphragm. Liver shadow projects below the rib cage. Multilevel spondylosis. Patient's large body habitus/obesity. XR/XR abdomen min 2V IMPRESSION: No intestinal obstruction pattern. Hepatomegaly, mild. No overt pneumoperitoneum. Electronically signed by: Pillo Chauhan MD 04/17/2025 11:12 AM EDT
[2025-04-18 02:22] LABS: Bacterial Vaginosis PCR NEGATIVE (Negative); Candida Group PCR DETECTED (Not Detect); Candida glab krusei PCR NOT DETECTED (Not Detect); Trichomonas vaginalis PCR NOT DETECTED (Not Detect)
[2025-04-18 02:54] LABS: CT PCR NOT DETECTED (Not Detect.); NG PCR NOT DETECTED (Not Detect.)
== END 2025-04-17 09:30 | disposition home or self-care (01) ==
LOC: HO.LAB 09:29
PROVIDERS: PCP Internal Medicine; Visit Provider Internal Medicine
DX: Z00.00 Encounter for general adult medical examination without abnormal findings (principal); N89.8 Other specified noninflammatory disorders of vagina; E66.3 Overweight; K21.9 Gastro-esophageal reflux disease without esophagitis; C83.31 Diffuse large B-cell lymphoma, lymph nodes of head, face, and neck; C50.911 Malignant neoplasm of unspecified site of right female breast; F41.1 Generalized anxiety disorder; E78.00 Pure hypercholesterolemia, unspecified; M85.80 Other specified disorders of bone density and structure, unspecified site; Z68.28 Body mass index [BMI] 28.0-28.9, adult; Z79.899 Other long term (current) drug therapy
CPT/HCPCS: 74019; 81003; 81515; 87491; 87591; 96127; 99397

== ENCOUNTER 2025-04-17 09:29 | Outpatient (AMB) | payer MEDICARE, MEDICAID, SELFPAY ==
--- OUTSIDE RECORDS SUMMARY | 2024-01-24 12:05 | XMS_ITS ---
Author Organization Jay Lorenz III, MD Address [address] [place] [address] [place] [address] Care Team Providers Care Barrel Turner Name Role Phone Liliya Santiago MD Primary Care Provider Dr. aJy Jimenez III Unavailable REASON FOR VISIT Needs call back from Social History Sex Assigned At : Social History Observation Description Sex Assigned At Female Encounters Encounter Location Date Provider Diagnosis Jay Lorenz III, MD [address] [place] [address] [place] [address] 01/24/2024 Jay Lorenz Plan Of Treatment No Information Progress Notes * Jewel MATTHEW:1960 (63 yo F)Acc No.[id number]:01/24/2024 Patient: Jackeline Rodrigues :1960 A ge:63 Y S ex:Female Address:[address] [place] [phone] * true * Date: Generated for Printi ng/Faxing/eTransmitting on: 1 10:57 AM EDT
--- OUTSIDE RECORDS SUMMARY | 2024-08-14 13:15 | XMS_ITS ---
Author Organization Jay Lorenz III, MD Address [address] [place] [address] [place] [address] Care Team Providers Care Curling Machine Operator Name Role Phone Liliya Hsieh MD Primary Care Provider Dr. Jay Jimenez III [facility] REASON FOR VISIT follow up Social History Sex Assigned At : Social History Observation Description Sex Assigned At Female Encounters Encounter Location Date Provider Diagnosis Jay Lorenz III, MD [address] [place] [address] [place] [address] 08/14/2024 Jay Lorenz Plan Of Treatment No Information Progress Notes * Jewel MATTHEW:1960 (64 yo F)Acc No.[id number]:08/14/2024 Progress Notes Patient: Jackeline CHOU Provider: Hosea Lorenz MD :1960 A ge:63 Y S ex:Female Date:08/14/2024 Address:[address] [place], [place] [phone] Pcp:Liliya Hsieh MD Subjective: * Chief Complaints: [...] 08/14/2024 Generated for John blackwood/Lavell/Demetri on: 1 10:57 AM EDT
--- OUTSIDE RECORDS SUMMARY | 2024-09-09 05:45 | XMS_ITS ---
Author Organization Jay Lorenz III, MD Address [address] [place] [address] Care Team Providers Care Erp Business Analyst Name Role Phone Po Liliya PAN Primary [...] Date Provider Diagnosis Jay Lorenz III, MD [address] [place] [address] [place] [address] 09/09/2024 Jay Lorenz Plan Of Treatment Medication [...] Topiramate 25 MG TAKE 1 TABLET BY [place] EVERY DAY Oral Zolpidem Tartrate 10 MG Oral P RN Progress Notes * Lorna MATTHEWaDOB:1960 (64 yo F)Acc No.[id number]:09/09/2024 Progress Notes Patient: Jackeline CHOU Provider: Hosea Lorenz MD :1960 A ge:63 Y S ex:Female Date:09/09/2024 Address:[address] [place] [phone] Pcp:Liliya Santiago MD Subjective: * Chief Complaints: [...] carcinoma in situ by biospy September, at [facility], active chronic colitis by rectal biospy [...] x-cigarette smoker S he was born in [place]. She is single. She has one son. [...] 0 09/09/2024 Generated for John blackwood/Lavell/Maryitting on: 10:57 AM EDT History and Physical Notes * HPI [...]
--- OUTSIDE RECORDS SUMMARY | 2024-10-11 06:30 | XMS_ITS ---
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 Jay Jimenez III Unavailable [phone] Allergies Allergen (clinical drug ingredient) Drug/Non Drug [...] Provider Diagnosis Jay Lorenz III, MD [address] [place] [address] [address] [place], [place] [phone] 10/11/2024 Jay Lorenz Diffuse large B-cell lymphoma, [...] Notes * Lorna MATTHEWaDOB:1960 (63 yo F)Acc No.[id number]:10/11/2024 Progress Notes Patient: Jackeline CHOU Provider: Hosea Lorenz MD :1960 A ge:63 Y S ex:Female Date:10/11/2024 Address:[address] [place] [phone] Pcp:Liliya Santiago MD Subjective: * Chief Complaints: [...] x-cigarette smoker S he was born in [place]. She is single. She has one son. [...] 10/11/2024 Generated for John blackwood/Lavell/Maryitting on: 1 10:56 AM EDT History and Physical Notes * [...]
--- OUTSIDE RECORDS SUMMARY | 2025-02-14 06:30 | XMS_ITS ---
Author Organization [facility] Address [address] [place] [address] Care Team Providers Care Dietist Name Role Phone Vito Santiago MD Primary Care Provider Unavailabl Jay Crespo [phone] REASON FOR VISIT ulcerative colitis,fam hx colon ca,screening Encounters Encounter Location Date Provider Diagnosis [facility] [place] [address] [place], [place] [phone] 02/14/2025 Jay Duarte Plan Of Treatment No Information Progress Notes * ONEIL NEGRETEADOB:1960 (64 yo F)Acc No.[id number]:02/14/2025 COLON WITH MAC Patient: MELVI CHOU Provider: Hosea Duarte MD :1960 A ge:64 Y S ex:Female Date:02/14/2025 Address:[address] [place], [place] [phone] Pcp:Vito Santiago MD Subjective: * Chief Complaints: [...] 0 02/14/2025 Generated for John blackwood/Lavell/Maryitting on: 10:56 AM EDT
[2025-04-17 09:30] VITALS: BP 134/86; PULSE 66; TEMP 36.3; O2SAT 97; BMI 28.4
--- NOTE | 2025-04-17 09:30 | A.OFFPC_ITS ---
Vital Signs 04/17/25 09:30 Height 5 ft 8 in Weight 187 lb BMI 28.4 BP 134/86 Blood Pressure Location Rt brachial Position Sitting Pulse 66 Pulse Source Pulse Oximeter Temp 97.3 F Temp Source Temporal Artery Scan Pulse Oximetry (%) 97 Oxygen Delivery Method Room Air Intake Visit Reasons: annual exam Allergies No Known Allergies Allergy (Verified 04/17/25 09:33) Medication List - Last Reconciled 04/17/25 by Vito Santiago MD alendronate 70 mg PO QWEEK alprazolam 0.25 mg (1/2 x 0.5 mg) PO BID-TID PRN 30 days atorvastatin 10 mg PO DAILY buspirone 15 mg PO BEDTIME cholecalciferol (vitamin D3) (Vitamin D3) 25 mcg PO DAILY diclofenac sodium 3% 1 appl topical BID gabapentin 300 mg PO BID lactobacillus comb no.10 (Probiotic) 20,000 mmu cells PO DAILY lidocaine 5% (Lidoderm) 2 patches topical DAILY multivitamin 1 tab PO DAILY sertraline 150 mg (1.5 x 100 mg) PO DAILY 90 days zolpidem 10 mg PO BEDTIME Tobacco use date assessed: 04/17/25 Fall risk assessment: No Falls in past year Last assessed Fall Risk: 04/17/25 Dental Screening Dental Screen Date: 04/17/25 Did you have a dental visit in the last 12 months?: No Did you have a dental problem in the last 6 months where you did not have access to dental care?: No Was dental information given to patient?: Patient has dentist [facility] Medical History (Updated 04/17/25 @ 09:42 by Vito Santiago MD) Osteopenia Right shoulder pain Bilateral shoulder pain Left shoulder pain Preop exam for internal medicine Obesity (BMI 30.0-34.9) Age-related osteoporosis without current pathological fracture Colonoscopy refused History of alcohol abuse Hypercholesterolemia Breast cancer Lymphoma Pituitary lesion Osteoarthritis Insomnia Inflammatory bowel disease Overweight (BMI 25.0-29.9) Anxiety and depression Surgical History History of hysteroscopy Hx of cystoscopy H/O colonoscopy History of bilateral breast reduction surgery History of surgery History of lumpectomy of right breast History of tonsillectomy Family History Father Colon cancer Mother Lymphoma Family/Other Breast cancer Sister Ovarian cancer Social History Household Members Other:: son Housing: House Are you a primary career counselor to a significant other at home: No Do you presently have visiting nurse or other home services: Yes (son is EARLY CHILDHOOD EDUCATION INSTRUCTOR) Alcohol intake: former Patient Tobacco Use Status: Former Tobacco user Tobacco use type: Cigarette Years Smoked: quit 1999 e-Cigarette/Vaping Use: Never Used Second Hand Smoke Exposure: Yes service: No Current occupational status: disabled Cognitive needs: No Hearing needs: No Vision needs: No Questionnaire PHQ-9 Over the last 2 weeks, how often have you been bothered by any of the following problems? 1. Little interest or pleasure in doing things: not at all 2. Feeling down, depressed, or hopeless: several days 3. Trouble falling or staying asleep, or sleeping too much: several days 4. Feeling tired or having little energy: more than half the days 5. Poor appetite or overeating: more than half the days 6. Feeling bad about yourself - or that you are a failure or have let yourself or your family down: more than half the days 7. Trouble concentrating on things, such as reading the newspaper or watching television: more than half the days 8. Moving or speaking so slowly that other people could have noticed. Or the opposite - being so fidgety or restless that you have been moving around a lot more than usual: several days 9. Thoughts that you would be better off or of hurting yourself in some way: several days Total score: 12 Depression Screening Interpretation: Positive Depression Screening Follow-up: Existing condition and In treatment Depression Screening Done: Yes Source: Developed by Drs. Jay Aguilera, Roxana Addison, Mikal Clarke and colleagues, with an educational shu from [employer]. Thrive Questionnaire Date Thrive assessed: 10/14/24 I am a: Patient What is your living situation today?: I have a steady place to live Within the past 12 months, did the food you bought not last and you didn't have the money to get more?: Sometimes True Within the past 12 months, did you worry whether your food would run out before you got money to buy more?: Sometimes True Do you have trouble paying for medicines?: Yes Do you have trouble getting transportation to medical appointments?: Yes Do you have trouble paying your heating and electricity bill?: Yes Do you have trouble taking care of your child, family member or friend?: Yes Do you have trouble with day-to-day activities such as bathing, preparing meals, shopping, managing finances, etc.?: Yes Are you currently unemployed and looking for a job?: Yes Are you interested in more education?: No Please select the resources that you would like help with: None Currently or been in a relationship where the following occur: I choose not to answer THRIVE Score: 4 AUDIT C Alcohol Use Questionnaire (AUDIT-C) 1. How often do you have a drink containing alcohol?: Never 3. How often do you have six or more drinks on one occasion?: Never Total Score: 0 ROSY-7 AMB Questionnaire ROSY-7 Date ROSY - 7 assessed: 04/17/25 Feeling nervous, anxious, or on edge: 0 = Not at all Not being able to stop or control worryin = Not at all Worrying too much about different things: 0 = Not at all Trouble relaxin = Not at all Being so restless that it is hard to sit still: 0 = Not at all Becoming easily annoyed or irritable: 0 = Not at all Feeling afraid as if something awful might happen: 0 = Not at all Total ROSY-7 score (0-4 normal; 5-9 mild; 10-14 moderate; 15-21 severe): 0 Source: Developed by Drs. Jay Aguilera, Roxana Addison, Mikal Clarke and colleagues, with an educational shu from [employer]. ROSY-7 Assessment Billing ROSY-7 Assessment Tool: ROSY-7 Assessment 88852 Review of Systems Const Denies poor appetite and Denies weakness Eyes Denies no additional complaints ENT Reports Normal hearing present, Denies dizziness, Denies nasal congestion, Denies tinnitus and Denies sore throat Card Denies chest pain, Denies syncope, Denies rapid heart rate and Denies dyspnea Resp Denies cough and Denies dyspnea GI Denies change in stool character, Reports constipation, Denies diarrhea, Denies nausea and Denies vomiting Denies urinary frequency, Denies difficulty voiding and Denies dysuria Neuro Reports Normal hearing present, Denies confusion, Denies dizziness, Denies syncope and Denies weakness Psych Denies confusion Physical exam (Primary Care) Vital Signs: Last Vital Signs Temp 97.3 F 04/17/25 09:30 Pulse 66 04/17/25 09:30 BP 134/86 04/17/25 09:30 Pulse Ox 97 04/17/25 09:30 Oxygen Delivery Method Room Air 04/17/25 09:30 BMI result Body Mass Index 28.4 Tobacco/Smoking Status: Tobacco use Status Tobacco use date assessed 04/17/25 04/17/25 09:34 Patient Tobacco Use Status Former Tobacco user 04/17/25 09:34 Tobacco use type Cigarette 04/17/25 09:34 e-Cigarette/Vaping Use Never Used 04/17/25 09:34 PHQ-9: PHQ-9 Score PHQ-9: Total score 12 04/17/25 09:36 Depression Screening Interpretation: Positive Depression Screening Follow-up: Existing condition and In treatment Thrive Assessment: Date of Thrive Assessment Date Thrive assessed 10/14/24 04/17/25 09:34 Currently or been in a relationship where the following occur: I choose not to answer Const General: No confusion Orientation/consciousness: No confusion HENMT Head: Yes normocephalic Ears: external ears normal and TM's normal bilaterally Face and sinus: Yes normal facial exam Mouth: moist mucous membranes Throat: Yes tonsils normal Eyes Conjunctivae: conjunctivae normal Pupils: Equal, round and reactive pupils present and Pupil accommodation reflex normal Direct Ophthalmoscopy: normal light reflex Neck Neck: No lymphadenopathy Thyroid: Thyroid normal Chest Chest palpation & inspection: normal inspection of the chest Resp Effort & Inspection: normal respiratory effort and no audible wheezes Auscultation: clear to auscultation bilaterally, no crackles, no wheezes and lung sounds not diminished Cardio Rate: regular rate Rhythm: regular rhythm Peripheral pulses: radial pulses present and dorsalis pedis present GI Palpation (GI): no masses Auscultation: normal bowel sounds and normoactive bowel sounds Rectal Exam - Female: deferred Other: Minimal clear discharge General: Yes Bimanual renal exam normal bilaterally External Female Exam: normal external appearance and normal appearance of the urethra Speculum Exam - Vagina: normal appearance of the vagina Speculum Exam - Cervix: normal appearance of the cervix and Cervical os closed Bimanual exam- vagina & uterus: normal bimanual exam Bimanual Exam- Adnexa, other: normal adnexae Skin General skin exam: no rashes or lesions noted Rashes: no rashes Neuro General: No confusion Cranial nerves: Yes Equal, round and reactive pupils present and Yes Normal hearing present Cognition (Neuro): normal cognition Gait exam (Neuro): Normal gait present Motor exam (neuro): 5/5 motor strength present throughout Deep tendon reflexes (DTR's): Right brachioradialis reflex intensity grade: 2+, Left brachioradialis reflex intensity grade: 2+, Right patellar reflex intensity grade: 2+ and Left patellar reflex intensity grade: 2+ Extrem General: No edema Results AMB Urinalysis, Automated UA Leukoctes 0 Aguilar/uL Last Edit by Tanya Maier CMA on 04/17/25 10:22 UA Nitrite Negative Last Edit by Tanya Maier CMA on 04/17/25 10:22 UA Urobilinogen 0.2 mg/dL Last Edit by Tanya Maier CMA on 04/17/25 10:22 UA Protein 0 mg/dL Last Edit by Tanya Maier CMA on 04/17/25 10:22 UA pH 6.0 Last Edit by Tanya Maier CMA on 04/17/25 10:22 UA Blood 0 Flaco/uL Last Edit by Tanya Maier CMA on 04/17/25 10:22 UA Specific [place] 1.015 Last Edit by Tanya Maier CMA on 04/17/25 10:22 UA Ketone Negative Last Edit by Tanya Maier CMA on 04/17/25 10:22 UA Bilirubin 0 mg/dL Last Edit by Tanya Maier CMA on 04/17/25 10:22 UA Glucose 0 mg/dL Last Edit by Tanya Maier CMA on 04/17/25 10:22 Results Reviewed Results Reviewed: Laboratory Last Values Urine pH (Auto) 6.0 04/17/25 10:20 Specific [place] (Auto) 1.015 04/17/25 10:20 Urine Protein (Auto) 0 mg/dL 04/17/25 10:20 Glucose (UA)(Auto) 0 mg/dL 04/17/25 10:20 Urine Ketones (Auto) Negative 04/17/25 10:20 Urine Blood (Auto) 0 Flaco/uL 04/17/25 10:20 Urine Nitrite (Auto) Negative 04/17/25 10:20 Urine Bilirubin (Auto) 0 mg/dL 04/17/25 10:20 Urine Urobilinogen (Auto) 0.2 mg/dL 04/17/25 10:20 Leukocyte Esterase (Auto) 0 Aguilar/uL 04/17/25 10:20 Coding Level of Care Code Est Pt Prev Care >65y(91800) Diagnoses Annual physical exam Z00.00 Overweight (BMI 25.0-29.9) E66.3 GERD (gastroesophageal reflux disease) K21.9 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 B-cell lymphoma type: diffuse large B-cell Lymphoma site: head Lymphoma type: non-Hodgkin Non-Hodgkin lymphoma type: B-cell Malignant neoplasm of right female breast, unspecified estrogen receptor status, unspecified site of breast C50.911 Breast location: unspecified site of breast Estrogen receptor status: unspecified Laterality: right Patient sex: female Generalized anxiety disorder F41.1 Hypercholesterolemia E78.00 Osteopenia M85.80 Vaginal odor N89.8 Additional Codes ROSY-7 Assessment Billing - ROSY-7 Assessment Tool: ROSY-7 Assessment 33323 ([id number]) Assessment & Plan Assessment & Plan (1) Annual physical exam: Code(s): Z00.00 - Encounter for general adult medical examination without abnormal findings Category: Medical Plan: Patient is advised to eat healthy, keep well hydrated, keep active and have adequate sleep. (2) Overweight (BMI 25.0-29.9): Code(s): E66.3 - Overweight Category: Medical Plan: Diet and exercise (3) GERD (gastroesophageal reflux disease): Code(s): K21.9 - Gastro-esophageal reflux disease without esophagitis Category: Medical Plan: Avoid the foods that causes that usually spicy foods, tomato products, juices, coffee, soda and foods that your sensitive to. After eating do not lie down, allow 3-4 hours before in lie down. And keep the head of bed above 30 degrees to avoid the acid from going up. 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 Lorenz November 2012 Code(s): C85.90 - Non-Hodgkin lymphoma, unspecified, unspecified site Category: Medical Qualifiers: B-cell lymphoma type: diffuse large B-cell Lymphoma site: head Lymphoma type: non-Hodgkin Non-Hodgkin lymphoma type: B-cell Qualified Code(s): C83.31 - Diffuse large B-cell lymphoma, lymph nodes of head, face, and neck Plan: Continue to follow-up with Hematology-Oncology (5) Breast cancer: Comment: Right-w/lumpectomy Code(s): C50.919 - Malignant neoplasm of unspecified site of unspecified female breast Category: Medical Qualifiers: Breast location: unspecified site of breast Estrogen receptor status: unspecified Laterality: right Patient sex: female Qualified Code(s): C50.911 - Malignant neoplasm of unspecified site of right female breast Plan: Patient is up-to-date with mammogram continue to follow-up with Hematology- Oncology (6) Generalized anxiety disorder: Comment: [facility] therapist Q week 07/2020 Code(s): F41.1 - Generalized anxiety disorder Category: Medical Plan: Continue with counseling and therapy (7) Hypercholesterolemia: Code(s): E78.00 - Pure hypercholesterolemia, unspecified Category: Medical (8) Osteopenia: Comment: February 2018, September Code(s): M85.80 - Other specified disorders of bone density and structure, unspecified site Category: Medical Plan: Patient is up-to-date with bone density on alendronate (9) Vaginal odor: Code(s): N89.8 - Other specified noninflammatory disorders of vagina Category: Medical Plan History of Present Illness The patient is a 64-year-old overweight female presenting for an annual physical exam and evaluation of vaginal discharge. She complains of persistent vaginal discharge with odor and itching. She has unsuccessfully tried cranberry vitamins, yogurt, and probiotics for relief. The patient has sought care at an urgent care center and an emergency room, where tests were performed and an ointment was prescribed, but the issue persists. She also saw an SCARFING MACHINE OPERATOR who performed a swab and recommended boric acid. The patient is concerned about the possibility of a retained tampon. She reports difficulty in scheduling an appointment with a new assembler dry cell and battery, with the earliest availability being in August. 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 Other chronic conditions include hypercholesterolemia, osteopenia treated with alendronate, and generalized anxiety disorder. She follows up with hematology/oncology. Her current medications include alendronate, alprazolam as needed, atorvastatin, buspirone, vitamin D, gabapentin, probiotics, a multivitamin, sertraline, and zolpidem as needed. The patient has no known medication allergies. The patient is up to date with her mammogram (February 2025) and Cologuard (October 2024). Her last bone density scan was in February 2024. Recent lab work from October 2024 showed a normal blood count, electrolytes, renal function, A1c of 5.5, and an LDL of 62, but elevated vitamin B12 and folic acid. Socially, the patient denies any alcohol, tobacco, or recreational drug use. Health Maintenance The patient is up to date on her mammogram, Cologuard, and vaccinations. Recent lab work was reviewed, and a wellness plan including diet and exercise was discussed. Social History - Alcohol: Patient denies alcohol use. - Tobacco: Patient denies current cigarette use, though acknowledges a history of smoking. - Recreational Drugs: Patient denies use of recreational drugs. - Diet: Takes multivitamins and probiotics. Occasionally eats tangerines, which may be a trigger for her heartburn. Review of Systems - Constitutional: Denies fevers. - HEENT: Reports occasional coughing when eating. Hearing is adequate. Denies difficulty swallowing. - Cardiovascular: Denies chest pains or heaviness. - Respiratory: Denies waking up short of breath. - Gastrointestinal: Reports weekly heartburn. Denies nausea or vomiting. Reports normal bowel movements. Takes probiotics. - Genitourinary: Reports vaginal discharge with odor and itching. Reports nocturia 1-2 times per night. Denies dysuria. - Neurological: Denies syncope or dizziness. Physical Exam General: Cooperative, healthy appearing, comfortable, no acute distress and well developed Orientation: Patient oriented x3 Limitations: No limitations Head: Normal to inspection Ears: Hearing grossly normal bilaterally Nose: Normal external nose present Face and sinus: Normal facial exam Eyes: Appearance normal, both eyes and all related structures Neck: Normal visual inspection and Yes full ROM Respiratory: Normal respiratory effort and able to speak in complete sentences. Clear to auscultation bilaterally Cardiovascular: Regular rate and rhythm. Normal S1 and S2 GI: Normal to inspection. Soft to palpation and nontender Skin: No rashes or lesions noted Neuro: Patient oriented x3 Extremities: Normal to inspection Results - Labs from October 2024: CBC, electrolytes, renal function, and blood sugar were normal. - A1c was 5.5%. - LDL cholesterol was 62 mg/dL. - Liver function, vitamin D, and thyroid tests were normal. - Vitamin B12 was elevated at 1700 pg/mL. - Folic acid was elevated at over 20 ng/mL. - Urinalysis from October 2024 was negative. - Cologuard test from October 2024 was negative. Plan Patient was informed and verbally consented to the use of an ambient scribe for clinic note documentation during this visit. 1. Vaginal Discharge The patient presents with ongoing vaginal discharge, odor, and itching, with a personal concern for a retained tampon. Physical exam revealed only minimal clear discharge. A bacterial vaginosis panel will be ordered via vaginal swab, along with a urinalysis. An abdominal X-ray is ordered to address the patient's concern, though it was explained that this is not a definitive test for a retained tampon. The use of [id number] vaginal lubricants for symptomatic relief was recommended, as hormonal creams are contraindicated due to her history of breast cancer. Follow-up will occur upon receipt of test results. 2. Elevated Vitamin B12 And Folic Acid Lab results demonstrated very high levels of vitamin B12 and folic acid, likely secondary to over-supplementation. It was recommended that the patient reduce her vitamin B12 intake to once a week. The elevated folic acid is likely from her multivitamin. 3. History Of Diffuse Large B-Cell Lymphoma And Breast Cancer Patient has a history of diffuse large B-cell lymphoma and breast cancer. She will continue to follow up with her hematology/oncology team. 4. Hypercholesterolemia, Controlled The patient's hypercholesterolemia is well-controlled on atorvastatin, with an LDL of 62. She will continue her current medication. 5. Osteopenia The patient will continue weekly alendronate and vitamin D for management of osteopenia. 6. Generalized Anxiety Disorder For her generalized anxiety disorder, the patient will continue her current medications, including buspirone and sertraline, and continue with counseling. 7. Gastroesophageal Reflux Disease The patient reports weekly heartburn, for which a reflux plan was discussed. She was advised on dietary modifications, such as avoiding trigger foods like tangerines close to bedtime. Discussion Notes I discussed the patient's primary complaint of vaginal discharge and itching. I informed her that a pelvic exam revealed only minimal clear discharge. I explained that we would collect a vaginal swab for a bacterial vaginosis panel and a urine sample to investigate the cause. To address her concern about a retained tampon, I ordered an abdominal X-ray, clarifying that a direct exam is usually the method of detection and the X-ray might not be conclusive. I recommended [id number] vaginal lubricants for symptomatic relief, explaining that hormonal treatments are contraindicated because of her history of breast cancer. We reviewed her recent lab results, noting her cholesterol is very well- controlled, but her B12 and folic acid levels are significantly elevated. I advised her to reduce her B12 supplementation to once per week. I also reviewed her health maintenance status and confirmed she is up-to-date with vaccinations and screenings. We briefly discussed dietary management for her heartburn symptoms. I will follow up with her regarding the test results. Patient Instructions - Before you leave today, you will need to provide a urine sample. - We will also collect a vaginal swab to test for infection. - Please go to the lab for an abdominal X-ray; the order has already been placed. - Your Vitamin B12 level is too high, so please reduce your B12 supplement to only once a week. - For vaginal dryness or irritation, you can use [id number] lubricants like K-Y Jelly. Do not use any hormone creams. - To help with your weekly heartburn, try to avoid foods that trigger it. Do not eat acidic foods like tangerines right before bed. - Continue all your current medications as prescribed. - Continue to follow up with your cancer specialist (hematology/oncology). - We will call you with your test results. Orders: Orders CT NG by PCR Vag/Cerv Today N89.8 - Other specified noninflammatory disorders of vagina Bacterial Vaginosis Panel Today N89.8 - Other specified noninflammatory disorders of vagina AMB Urinalysis Automated Today Z13.9 - Encounter for screening, unspecified
--- OUTSIDE RECORDS SUMMARY | 2025-04-17 10:57 | XMS_ITS | Clinical Summary ---
Author Organization [facility] Address [address] [place] [address] Phone Care Team Providers Care Blueprinting And Photocopy Supervisor Name Role Phone Mike Rodney MD Primary Care Provider [phone] Allergies No known active allergies Medications metroNIDAZOLE (FLAGYL) 500 mg tablet Take 1 tablet (500 mg total) by mouth 2 (two) times a day for 7 days. Do not use mouth wash or consume alcohol until 48 hours after last dose 14 tablet 03/28/2025 04/04/20 25 Encounters Date Type Department Care Team Description 03/28/2025 8:34 AM EDT - 03/28/2025 10:14 AM EDT Emergency [facility] Emergency [address] [place] [address] Acute vaginitis (Primary Dx); Trichomonal vaginitis Discharge Disposition: Home or Self Care from Last 3 Months Surgical History Surgery Date Site/Laterality Comments BREAST REDUCTION PROCEDURE: UT BREAST REDUCTION BREAST LUMPECTOMY PROCEDURE: HISTORICAL BREAST LUMPECTOMY; COMMENT: right TONSILLECTOMY ADENOIDECTOMY, BILATERAL MYRINGOTOMY AND TUBES PROCEDURE: UT TONSILLECTOMY & ADENOIDECTOMY <AGE 10 Medical History Medical History Date Comments Anxiety disorder DX:Anxiety diso rder Depression DX:Depression Cancer of breast ([facility] V24, [facility] V28) DX:Cancer of breast (HCC) History of alcohol abuse DX:Hist ory of alcohol abuse Hypercholesterolemia DX:Hypercho lesterolemia Inflammatory bowel disease DX:In flammatory bowel disease Insomnia DX:Insomnia Lymphoma ([facility] V24, [facility] V28) DX:Lymphoma (HCC) Osteoarthritis DX:Osteoarthriti s Obesity [...] PM EST Office Visit Internal Medicine - [address] [place] [address] Mike Rodney MD [address] [place] [phone] Health Maintenance Due Date Last Done [...] vaginalis Negative Negative 03/28/2025 9:53 AM EDT [facility] Vaginal Fluid Vaginal structure / Unknown Non-blood Collection / Unknown 03/28/2025 8:46 AM EDT 03/28/2025 9:01 AM EDT [facility] MICROBIOLOGY - GENER AL ORDERABLES Final Result Performing Organization Address City/[facility]/ZIP Co de Phone Number [facility] [address] [place] [address], [place] [phone] * Wet prep, genital (03/28/2025 8:46 AM EDT) Clue Cells, Wet Prep Negative Negative 03/28/2025 9:37 AM EDT [facility] Yeast, Wet Prep Negative Negative 03/28/2025 9:37 AM EDT [facility] Trichomonas, Wet Prep Indeterminate Negative 03/28/2025 9:37 AM EDT [facility] Comment:Refer to Trichomonas antigen. Vaginal Fluid Vaginal structure / Unknown Non-blood Collection / Unknown 03/28/2025 8:46 AM EDT 03/28/2025 9:01 AM EDT [facility] MICROBIOLOGY - GENER AL ORDERABLES Final Result Performing Organization Address City/[facility]/ZIP Co de Phone Number [facility] [address] [place] [address], [place] [phone] * Chlamydia trachomatis and Neisseria gonorrhoeae molecular study (03/28/2025 8:45 AM EDT) Neisseria gonorrhoeae PCR Negative Negative LAB MOLECULAR DIAGNOSTICS METHOD 03/28/2025 11:56 AM EDT [facility] Chlamydia trachomatis PCR Negative Negative LAB MOLECULAR DIAGNOSTICS METHOD 03/28/2025 11:56 AM [facility] Swab Vaginal structure / Unknown Non-blood Collection / Unknown 03/28/2025 8:45 AM EDT 03/28/2025 9:01 AM EDT us [facility] MICROBIOLOGY - GENER AL ORDERABLES Final Result [facility] [address] [place] [address], [place] [phone] * Urinalysis with reflex microscopic and culture (03/28/2025 8:43 AM EDT) Specific [place] Urine 1.006 1.003 - 1.030 LAB URINALYSIS - AUTOMATED METHOD 03/28/2025 9:16 AM [facility] pH, Urine 7.5 5.0 - 8.0 pH LAB URINALYSIS - AUTOMATED METHOD 03/28/2025 9:16 AM [facility] Leukocytes, Urine Negative Negative LAB URINALYSIS - AUTOMATED METHOD 03/28/2025 9:16 AM [facility] Nitrite, Urine Negative Negative LAB URINALYSIS - AUTOMATED METHOD 03/28/2025 9:16 AM [facility] Protein, Urine Negative <=Trace mg/dL LAB URINALYSIS - AUTOMATED METHOD 03/28/2025 9:16 AM [facility] Glucose, Urine Negative Negative mg/dL LAB URINALYSIS - AUTOMATED METHOD 03/28/2025 9:16 AM [facility] Ketones, Urine Negative Negative mg/dL LAB URINALYSIS - AUTOMATED METHOD 03/28/2025 9:16 AM [facility] Urobilinogen, Urine 0.2 0.2 - 1.0 mg/dL LAB URINALYSIS - AUTOMATED METHOD 03/28/2025 9:16 AM EDT [facility] Bilirubin, Urine Negative Negative LAB URINALYSIS - AUTOMATED METHOD 03/28/2025 9:16 AM EDT [facility] Blood, Urine Negative Negative LAB URINALYSIS - AUTOMATED METHOD 03/28/2025 9:16 AM EDT [facility] Urine Urine specimen obtained by clean catch procedure / Unknown Non-blood Collection / Unknown 03/28/2025 8:43 AM EDT 03/28/2025 9:01 AM EDT [facility] URINE ORDERABLES Fin al Result Performing Organization Address [facility]/ZIP Co de Phone Number [facility] [address] [place] [address], [place] [phone] * Mead urine culture tube (03/28/2025 8:43 AM EDT) Extra Tube Hold for add-ons. 03/28/2025 11:01 AM EDT [facility] Comment:Auto resulted. Urine Urine specimen obtained by clean catch procedure / Unknown Non-blood Collection / Unknown 03/28/2025 8:43 AM EDT 03/28/2025 9:01 AM EDT [facility] URINE ORDERABLES Fin al Result [facility] [address] [place] [address], [place] [phone] from Last 3 Months Insurance MEDICARE MEDICAID - [place] Care Teams Blueprinting And Photocopy Supervisor Relationship Specialty Start Date End Date Mike Rodney MD [address] [place] [address] PCP - General Internal Medicine 04/04/25
--- OUTSIDE RECORDS SUMMARY | 2025-04-17 10:57 | XMS_ITS | Patient Health Record ---
Author Organization [facility] Address [address] [place] [address] Care Team Providers Care Marine Engineering Teacher Name Role Phone Po Vito PAN Primary Care Provider Jay Marks [phone] Reason For Referral No Information Medications Medication [...] Status Risk Notes Problem Colon cancer screening (456525073) Colon cancer screening (Z12.11) Active confirmed Problem Diarrhea (17007488) Diarrhea (R19.7) Active con firmed Problem Gastroesophageal reflux disease (541675773) Gastroesophageal reflux disease, esophagitis presence not specified (K21.9) Active confirmed Problem Chronic ulcerative proctitis (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) Ulcerative proctitis, 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) Active confirmed Problem Family history of malignant neoplasm of gastrointestinal tract (438481795) Family history of colon cancer in father (Z80.0) Active confirmed Vital Signs Blood pressure diastolic 88 mm Hg 11/14/2024 Height 66 in 11/14/2024 Blood pressure systolic 111 mm Hg 11/14/2024 Weight 188 lbs 11/14/2024 BMI 30.34 kg/m2 11/14/2024 Procedures Procedure Date Ordered Date Performed Result Body Sit e COLONOSCOPY 11/14/2024 N/A Encounters Encounter Location Date Provider Diagnosis [facility] [address] [place] [address] 11/14/2024 Jay Duarte Ulcerative proctitis , without complications K51.20 ; Family history of colon cancer in father Z80.0 and Colon cancer screening Z12.11 [facility] [address] [place] [address] 11/14/2024 Jay Duarte [facility] [address] [place] [address] 02/12/2025 Jay Duarte Assessments Encounter Date Diagnosis [...] OF [place] [address] [place] [address] [id number] MELVI NEGRETE Self - patient is the insured 0 MEDICAID OF [employer] [address] [place] [phone] [id number] MELVI NEGRETE Self - patient is the [...]
--- OUTSIDE RECORDS SUMMARY | 2025-04-17 10:58 | XMS_ITS | Patient Health Record ---
Author Organization [facility] [address] Address [address] [place] [address] Care Team Providers Care Communications Technician Name Role Phone HENOK CHANDLER Unavailable [phone] Allergies No Known Allergies Reason For Referral [...] Notes Problem Obesity due to excess calories (461315303) Other obesity due to excess calories (E66.09) Active confirmed Problem Age-related osteoporosis (437039728) Age-related osteoporosis without current pathological fracture (M81.0) Active confirmed Problem Anxiety (30995079) Anxiety (F41.9) Active confirmed Problem Body mass index 30.00 to 34.99 (417599283487519 ) Body mass index [BMI] 33.0-33.9, adult (Z68.33) Active confirmed Problem Body mass index 30.00 to 34.99 (460340273244502 ) BMI 31.0-31.9,adult (Z68.31) Active confirmed Plan Of Treatment No Information Insurance Providers Payer Name Payer Address Payer Phone Subscriber Number Group Number Insured Name Patient Relationship to Insured Coverage Start Date Coverage End Date Medicare Part B [id number] [address] [place] [address] [id number] Jackeline Matthew Self - patient is the insured 0 Medical (General) History Medical History History ICD Code cancer headache Arthritis anxiety depression lymphoma Surgical History Surgery Date(Month/Year) Lymphoma removed Hospitalization History Reason Date(Month/Year) Cancer
--- OUTSIDE RECORDS SUMMARY | 2025-04-17 10:58 | XMS_ITS | Patient Health Record ---
Author Organization [facility] Address [address] [address] [place] [address] Care Team Providers Care Physical Science Teacher Name Role Phone ARACELIS HSIEH M.D.[facility] Primary Care Provider Unavaila Vania Carreon Unavailable [phone] Reason For Referral No Information Plan Of Treatment No Information Insurance Providers Payer Name Payer Address Payer Phone Subscriber Number Group Number Insured Name Patient Relationship to Insured Coverage Start Date Coverage End Date [facility] [address] [address] [place] [address] [id number] MELVI NEGRETE Self - patient is the insured
--- OUTSIDE RECORDS SUMMARY | 2025-04-17 10:58 | XMS_ITS | Patient Health Record ---
Author Organization Jay Lorenz III, MD Address [address] [place] [address] [place] [address] Care Team Providers Care Salon Receptionist Name Role Phone Liliya Hsieh MD Primary [...] Problem Status W/U Status Risk Notes Problem 6181283 Former smoker (Z87.891) Active confirmed She is not currently smoking and seems motivated not to smoke. I have discussed with her several strategies for maintenance of abstinence in times of stress and illness. Problem 764587430 Overweight (BMI 25.0-29.9) (E66.3) Active confirmed Her body mass index is 29. She has recently lost weight and is no longer obese. We reviewed her diet and nutrition. I recommended continued weight loss until the body mass index is in the normal range. Problem 64287842 Depression (F32.9) Active confirmed Her chronic depression is stable and not worse. She will continue her current regimen. Problem Diffuse large B- cell lymphoma, lymph nodes of head, face, and neck (C83.31) Active confirmed There was no sign on the exam or in the vital signs of recurrence. Comprehensive blood work has been ordered. Problem 549799434 Hyperprolactinem ia (E22.1) Active confirmed The prolactin level is now 14, in the normal range. Problem 703904274 Pituitary tumor (D49.7) Active confirmed An MRI of the brain including the pituitary gland has been requested. If necessary a prolactin level will be obtained. Problem 17519436 Uterine fibroid (D25.9) Active confirmed She had no new complaints about uterine fibroids today. She is under the care of COMMUNITY NUTRITION EDUCATOR and primary care. Problem 12652076 Chronic colitis (K52.9) Active confirmed She says is probably stable and she has occasional diarrhea but is not impaired in the activities of daily living. Problem 644420256 Lobular carcinom a in situ (D05.00) Active [...] Date Provider Diagnosis Jay Lorenz III, MD [address] [place] [address] [address] [place], [place] [address] 10/11/2024 Jay Lorenz Diffuse large B-cell lymphoma, [...] NGS [address] [place] [address] [id number] Jackeline Matthew Self - patient is the insured MED[place] [address] [place], [place] [id number] Jackeline Matthew Self - patient is the insured Medical (General) History Medical History History ICD Code lobular carcinoma in situ by biospy Apr, at [facility] active chronic colitis by re ctal [...]
== END 2025-04-17 10:27 | disposition home or self-care (01) ==
LOC: HO.HMCH 09:30
PROVIDERS: PCP Internal Medicine; Visit Provider Internal Medicine
DX: Z00.00 Encounter for general adult medical examination without abnormal findings (principal); E66.3 Overweight; C83.31 Diffuse large B-cell lymphoma, lymph nodes of head, face, and neck; C50.911 Malignant neoplasm of unspecified site of right female breast; K21.9 Gastro-esophageal reflux disease without esophagitis; F41.1 Generalized anxiety disorder; E78.00 Pure hypercholesterolemia, unspecified; M85.80 Other specified disorders of bone density and structure, unspecified site; N89.8 Other specified noninflammatory disorders of vagina

== ENCOUNTER → 2025-04-17 10:55 | Outpatient (BNV) | payer MEDICARE, MEDICAID, SELFPAY | PROVIDERS: PCP Internal Medicine; Visit Provider Radiology Diagnostic Radiology | DX: R16.0 Hepatomegaly, not elsewhere classified (principal) | CPT/HCPCS: 74019 ==